=== PATIENT | female | born 1990 | race Two or more races ===

== ENCOUNTER 2020-03-10 18:13 | Emergency (ER) | payer OTHER, MEDICAID, SELFPAY ==
--- NOTE | 2020-03-10 20:10 | PC.NURSE ---
PT CALLED AT 1999. PT NOT IN [facility].
--- NOTE | 2020-03-10 21:10 | PC.NURSE ---
CALLED PATIENT NO RESPONSE
== END 2020-03-10 21:00 | disposition left against medical advice (07) ==
LOC: HO.ED 21:14
PROVIDERS: Emergency Provider Internal Medicine; PCP Family Medicine
DX: Z04.1 Encounter for examination and observation following transport accident (principal)
CPT/HCPCS: 99281

== ENCOUNTER 2020-05-13 15:33 | Emergency (ER) | payer MEDICAID, SELFPAY ==
[2020-05-13 16:14] VITALS: BP 120/71; PULSE 87; RESP 20; TEMP 37.1; O2SAT 100; BMI 36.6
[2020-05-13 20:38] VITALS: BP 109/63; PULSE 85; RESP 18; TEMP 36.8; O2SAT 98
[2020-05-13 20:42] LABS: Basophils Percent Auto 0.3 % (0-2); Eosinophils Absolute Auto 0.2 X10*3/uL (0.0-0.4); Eosinophils Percent Auto 1.4 % (0-4); Hematocrit 36.9 % (37-47); Hemoglobin 11.9 g/dl (12.0-16.0); Imm Gran Abs Auto 0.02 X10*3/uL (0.00-0.03); Imm Gran Pct Auto 0.2 % (0.0-0.4); Lymphocytes Absolute Auto 3.8 X10*3/uL (1.2-4.9); Lymphocytes Percent Auto 35.7 % (20-40); MANUAL DIFF FLAG NO; Mean Corpuscular HGB Conc 32.2 g/dl (31.0-35.0); Mean Corpuscular Hemoglobin 27.3 pg (27.0-33.0); Mean Corpuscular Volume 84.6 fL (80-98); Mean Platelet Volume 10.6 fL (9.4-12.3); Monocytes Absolute Auto 0.7 X10*3/uL (0.1-1.2); Monocytes Percent Auto 6.3 % (2-11); Neutrophils Absolute Auto 5.9 X10*3/uL (2.0-8.3); Neutrophils Percent Auto 56.1 % (45-73); Platelet Count 251 X10*3/uL (160-400); Red Blood Count 4.36 X10*6/uL (4.20-5.50); Red Cell Distribution Width 13.3 % (11.0-16.0); White Blood Count 10.6 X10*3/uL (4.8-10.8)
[2020-05-13 20:46] LABS: UPreg QC Valid YES; Urine Pregnancy NEGATIVE (NEGATIVE)
[2020-05-13 21:08] LABS: Anion Gap 12 (12-20); Blood Urea Nitrogen 15 mg/dL (9-16); Calcium 9.1 mg/dL (8.4-10.2); Carbon Dioxide 25 mmol/L (22-29); Chloride 104 mmol/L (96-108); Creatinine Clr Calc Pharmacy 111.4; Estimated Glomerular Filt Rate > 60; Glucose Random 87 mg/dL (60-115); Potassium 3.7 mmol/l (3.3-5.1); Sodium 137 mmol/L (135-145)
[2020-05-13 21:25] VITALS: BP 110/73; PULSE 83; RESP 16; O2SAT 99
--- NOTE | 2020-05-13 21:44 | ED_ITS ---
HPI - Headache General Chief Complaint: Headache Stated Complaint: migraine Time Seen by Provider: 05/13/20 21:30 Source: patient Mode of arrival: ambulatory History of Present Illness HPI Narrative: This is a 29-year-old female with past medical history of headaches, asthma, and removal of 4 wisdom teeth approximately 2 weeks ago who presents with right-sided headache for 3 weeks without photosensitivity or visual changes, denies any hearing/speech changes and as well denies any unilateral numbness/weakness/tingling. However, she does states she has had some mild nausea without fevers, chills, neck pain. Related Data Allergies Allergy/AdvReac Type Severity Reaction Status Date / Time No Known Allergies Allergy Unverified 01/31/20 16:40 Review of Systems Review of Systems: Pertinent positives and negatives as stated in HPI 10 point review of systems otherwise negative. PMFSH Past Medical History Source: nursing notes reviewed Medical History Asthma Hypertension Kidney stones Social History Social History Smoking Status: Current every day smoker Use of substances other than those prescribed or required for medical reasons: No Advance Directives: No Advance Directives Information Provided: No Physical Exam Vital Signs: Vital Signs: Last Vital Signs Temp 98.0 F 05/13/20 22:52 Pulse 70 05/13/20 22:52 Resp 20 05/13/20 22:52 BP 107/58 L 05/13/20 22:52 Pulse Ox 95 05/13/20 22:52 Body Mass Index 36.6 VITAL SIGNS: Reviewed. GENERAL: Well developed, well nourished, in no acute distress. HEAD: Normocephalic/atraumatic, EYES: PERRLA, EOMI intact without pain, no nystagmus/pallor/icterus noted EARS: Ext canals without abnormality, TMs non-bulging and non-erythematous NOSE: Nares patent bilateral OROPHARYNX: no oral lesions noted, posterior pharynx clear and non-erythematous without noted tonsillar enlargement/erythema/exudates NECK: Supple, no adenopathy LUNGS: Normal breath sounds. No adventitious sounds or accessory muscle use. SpO2<99> CARDIOVASCULAR: Regular rate and rhythm without noted murmurs, no JVD or lower extremity edema. ABDOMEN: Soft, non-tender, non-distended with bowel sounds. No rigidity. No guarding. No palpable masses or hernias noted NEUROLOGIC: Alert and oriented x 4. Strength and sensation to light touch were grossly intact x 4, no pronator drift, no facial asymmetry, cranial nerves 2-12 are grossly intact.. Course Course Course Narrative: This is a 29-year-old female with history and clinical presentation consistent with likely tension versus associated with recent dental procedure although the latter is less likely. Patient will be provided with a combination of analgesics and reassessed. Doubt intracranial tumor, infarct, bleed, or infection. Patient has had good resolution of her symptoms and review of all lab work is negative to include a negative urine test. Were discussed with the patient at bedside and she was encouraged to follow up with her primary care provider for further evaluation. MDM - Headache Lab Data Result diagrams: 05/13/20 20:36 05/13/20 20:36 Labs: Lab Results 05/13/20 05/13/20 05/13/20 Range/Units 20:36 20:36 20:36 WBC 10.6 (4.8-10.8) X10*3/uL RBC 4.36 (4.20-5.50) X10*6/uL Hgb 11.9 L (12.0-16.0) g/dl Hct 36.9 L (37-47) % MCV 84.6 (80-98) fL MCH 27.3 (27.0-33.0) pg MCHC 32.2 (31.0-35.0) g/dl RDW 13.3 (11.0-16.0) % Plt Count 251 (160-400) X10*3/uL MPV 10.6 (9.4-12.3) fL Immature Gran % (Auto) 0.2 (0.0-0.4) % Neut % (Auto) 56.1 (45-73) % Lymph % (Auto) 35.7 (20-40) % [place] % (Auto) 6.3 (2-11) % Eos % (Auto) 1.4 (0-4) % Baso % (Auto) 0.3 (0-2) % Lymph # (Auto) 3.8 (1.2-4.9) X10*3/uL [place] # (Auto) 0.7 (0.1-1.2) X10*3/uL Eos # (Auto) 0.2 (0.0-0.4) X10*3/uL Baso # (Auto) 0.0 (0.0-0.2) X10*3/uL Abs Immat Gran (auto) 0.02 (0.00-0.03) X10*3/uL Absolute Neuts (auto) 5.9 (2.0-8.3) X10*3/uL Absolute Nucleated RBC 0.000 (0.0-0.012) X10*3/uL Nucleated RBC % (auto) 0.0 (0.0-0.2) /100WBC Sodium 137 (135-145) mmol/L Potassium 3.7 (3.3-5.1) mmol/l Chloride 104 (96-108) mmol/L Carbon Dioxide 25 (22-29) mmol/L Anion Gap 12 (12-20) BUN 15 (9-16) mg/dL Creatinine 0.78 (0.5-1.4) mg/dL Estim Creat Clear Calc 111.4 Estimated GFR > 60 Random Glucose 87 (60-115) mg/dL Calcium 9.1 (8.4-10.2) mg/dL Urine Test NEGATIVE (NEGATIVE) Discharge Plan Discharge Clinical Impression: Headache Qualifiers: Headache type: unspecified Headache chronicity pattern: chronic headache Intractability: not intractable Qualified Code(s): R51.9 - Headache, unspecified Patient Disposition: Home, Self-Care Instructions: General Headache (ED) Additional Instructions: 1. Tylenol 1000 mg, orally, every 6 hours as needed for pain control. Do not exceed 4000 mg within 24 hours. 2. Ibuprofen 400 mg, orally with milk or food, every 6 hours as needed for pain control. You may take this medication with Tylenol as it will increase the affect. 3. Increase your fluid hydration especially with water. The patient and/or family acknowledge understanding of results (as applicable), diagnosis, treatment plan, need for follow up, and symptoms that should prompt a return to the emergency room. Referrals: Reagan Garcia MD [Physician] - 2 days (Please evaluate this patient for outpatient management of headaches.)
[2020-05-13] MEDS: Acetaminophen 325 MG TABLET 975 MG PO (21:49)
[2020-05-13] MEDS: diphenhydrAMINE HCL 50 MG/ML VIAL 25 MG IM (21:49)
[2020-05-13] MEDS: Ketorolac Tromethamine 15 MG/ML VIAL IM (21:50)
[2020-05-13] MEDS: Metoclopramide HCl 10 MG/2 ML VIAL IM (21:50)
[2020-05-13 22:52] VITALS: BP 107/58; PULSE 70; RESP 20; TEMP 36.7; O2SAT 95
== END 2020-05-13 23:52 | disposition home or self-care (01) ==
PROVIDERS: Emergency Provider Student in an Organized Health Care Education/Training Program
DX: R51.9 Headache, unspecified (principal); J45.909 Unspecified asthma, uncomplicated; F17.200 Nicotine dependence, unspecified, uncomplicated; Z71.6 Tobacco abuse counseling
CPT/HCPCS: 36415; 80048; 81025; 85025; 96372; 99284; J1200; J1885; J2765

== ENCOUNTER 2020-08-15 23:27 | Emergency (ER) | payer MEDICAID, SELFPAY ==
--- NOTE | ~2020-08-15 | CT_ITS ---
EXAMINATION: CT ABDOMEN AND PELVIS WITH CONTRAST CLINICAL INFORMATION: Right lower quadrant pain. Left flank pain. COMPARISON: 02/07/2020. TECHNIQUE: Contiguous axial thin section helical images of the abdomen and pelvis were performed following the administration of 85 mL of intravenous Omnipaque 3-50. The data set was reformatted in the coronal and sagittal planes and reviewed on an independent workstation. DLP: 791 mGy-cm. FINDINGS: There is mild dependent bibasilar atelectasis. The visualized lung bases are otherwise clear. The visualized portions of the heart are unremarkable. The liver is of normal size and attenuation without focal lesions nor intrahepatic biliary ductal dilation. A normal gallbladder is identified. There is no wall thickening or discernible pericholecystic fluid. The spleen, pancreas, adrenal glands are unremarkable. Both kidneys are of normal size and attenuation without hydronephrosis or nephrolithiasis. Following the administration of IV contrast, prompt symmetric nephrograms are displayed. There is no abdominal free fluid. There is neither mesenteric nor retroperitoneal lymphadenopathy. Normal unopacified loops of small and large bowel are identified. There is a small amount of likely physiologic pelvic free fluid. The urinary bladder is unremarkable. There is neither pelvic nor inguinal lymphadenopathy. Bone windows: Neither sclerotic nor lytic bone lesions are identified. CT/CT abdomen pelvis w con IMPRESSION: No acute abdominal or pelvic inflammatory or infectious processes. Automated exposure control (Care Dose) Adjustment of the mA and/or kv according to patient size (this includes techniques or standardized protocols for targeted exams where dose is matched to indication / reason for exam; i.e. extremities or head).
[2020-08-15 23:29] VITALS: BP 127/66; PULSE 93; RESP 18; TEMP 36.7; O2SAT 98; BMI 38.0
--- NOTE | 2020-08-16 01:15 | ED_ITS ---
HPI - Abdominal Pain General Chief Complaint: Abdominal Pain Stated Complaint: Abd pain Time Seen by Provider: 08/16/20 00:32 Source: patient Mode of arrival: ambulatory Limitations: no limitations History of Present Illness HPI narrative: Patient comes emergency room complaining of left-sided flank pain for 3 days. Patient denies dysuria, no hematuria, no fever chills. Patient denies any history of trauma. Patient states she has had kidney stones in the past, needed surgery. Patient also complaining of mild right lower quadrant pain which is intermittent , was hurting earlier today, but not this time. Related Data Allergies Allergy/AdvReac Type Severity Reaction Status Date / Time No Known Allergies Allergy Unverified 01/31/20 16:40 Review of Systems Review of Systems Constitutional : No Weight loss, No Fever, No Chills, No Night Sweats, No Fatigue, No Malaise ENT/Mouth : No Hearing loss, No Ear Pain, No Nasal Congestion, No Sinus Pain, No Hoarseness, No sore throat, No Rhinorrhea, No Swallowing Difficulty Eyes: No Eye Pain, No Swelling, No Redness, No Foreign Body, No Discharge, No Vision Changes Cardiovascular : No Chest Pain, No SOB, No Dyspnea on Exertion, No Orthopnea, No Edema, No Palpitations Respiratory : No Cough, No Sputum, No Wheezing, No Smoke Exposure, No Dyspnea Gastrointestinal : Complaining of Nausea, No Vomiting, No Diarrhea, No Consti pation, complaining of intermittent right lower quadrant pain but not at this time, complaining of left CVA tenderness, No Hematochezia, No Melena Genitourinary : no irregular bleeding, No Dysuria, No Urinary Frequency, No Hematuria, No Urinary Incontinence, No Urgency, No Flank Pain, No Urinary Flow Changes, No Hesitancy Musculoskeletal : No joint pain, No Myalgias, No Joint Swelling Skin : No Skin Lesions, No rash Neuro : No Weakness, No Numbness, No Paresthesias, No Loss of Consciousness, No Dizziness, No Headache Psych : No Anxiety/Panic, No Depression, No SI/HI/AH/VH, No Social Issues, Heme/Lymph: No Bruising, No Bleeding,No Lymphadenopathy Endocrine : No Polyuria, No Polydipsia, No Temperature Intolerance Physical Exam Vital Signs: Vital Signs: Last Vital Signs Temp 98.1 F 08/15/20 23:29 Pulse 93 08/15/20 23:29 Resp 18 08/15/20 23:29 BP 127/66 08/15/20 23:29 Pulse Ox 98 08/15/20 23:29 Body Mass Index 38.0 Appearance: Alert. Oriented X3. No acute distress. Eyes: Pupils equal, round and reactive to light. ENT: Pharynx normal. Neck: Normal inspection. Neck supple. No lymph nodes noted. No crepitus CVS: Normal heart rate and rhythm. Pulses normal. Normal S1 and S2 Respiratory: No respiratory distress. Breath sounds normal. No Wheezing. No rales Abdomen: Soft and nontender in the abdomen including right lower quadrant. No rigidity. No distention. Positive CVA tenderness on the left side Skin: Skin warm and dry. Normal skin color. Normal skin turgor. Extremities: No lower extremity edema. No lower extremity edema. No Lacerations. No Rash Neuro: Oriented X 3. No motor deficit. No sensory deficit. Moving all extermities. No slurred speech. Course Course Course Narrative: Patient has no white blood cell count, sepsis is not suspected. Urinalysis clean, urine negative. CT scan is pending. Patient's pain likely musculoskeletal. Patient received 1 dose of IV Toradol. Complain of right lower quadrant pain on physical exam nonspecific. Please follow-up with the CT scan. sign out given to Dr. Weller [facility] - Abdominal Pain Lab Data Result diagrams: 08/16/20 01:28 08/16/20 01:28 Labs: Lab Results 08/16/20 08/16/20 08/16/20 Range/Units 01:17 01:17 01:28 WBC 10.2 (4.8-10.8) X10*3/uL RBC 4.29 (4.20-5.50) X10*6/uL Hgb 11.6 L (12.0-16.0) g/dl Hct 36.7 L (37-47) % MCV 85.5 (80-98) fL MCH 27.0 (27.0-33.0) pg MCHC 31.6 (31.0-35.0) g/dl RDW 13.5 (11.0-16.0) % Plt Count 200 (160-400) X10*3/uL MPV 11.4 (9.4-12.3) fL Immature Gran % (Auto) 0.2 (0.0-0.4) % Neut % (Auto) 60.0 (45-73) % Lymph % (Auto) 32.1 (20-40) % [place] % (Auto) 5.6 (2-11) % Eos % (Auto) 1.8 (0-4) % Baso % (Auto) 0.3 (0-2) % Lymph # (Auto) 3.3 (1.2-4.9) X10*3/uL [place] # (Auto) 0.6 (0.1-1.2) X10*3/uL Eos # (Auto) 0.2 (0.0-0.4) X10*3/uL Baso # (Auto) 0.0 (0.0-0.2) X10*3/uL Abs Immat Gran (auto) 0.02 (0.00-0.03) X10*3/uL Absolute Neuts (auto) 6.2 (2.0-8.3) X10*3/uL Absolute Nucleated RBC 0.000 (0.0-0.012) X10*3/uL Nucleated RBC % (auto) 0.0 (0.0-0.2) /100WBC Urine Color YELLOW Urine Appearance CLEAR Urine pH 6.5 (5.0-8.0) Ur Specific [place] 1.020 (1.005-1.025) Urine Protein NEG (NEG-TRACE) MG/DL Urine Glucose (UA) NEG (NEG) MG/DL Urine Ketones NEG (NEG) MG/DL Urine Blood NEG (NEG) Urine Nitrite NEG (NEG) Ur Leukocyte Esterase NEG (NEG) Urine Test NEGATIVE (NEGATIVE) [facility] Past Medical History Medical History Asthma Hypertension Kidney stones Social History Social History Alcohol intake: current Alcohol intake frequency: does not drink Smoking Status: Never smoker Advance Directives: No Advance Directives Information Provided: No
[2020-08-16 01:26] LABS: Glucose Urine UA NEG (NEG); Leukocyte Esterase Urine NEG (NEG); Nitrite Urine NEG (NEG); PH 6.5 (5.0-8.0); Urine Blood NEG (NEG); Urine Ketones NEG (NEG); Urine Protein NEG (NEG-TRACE)
[2020-08-16 01:28] LABS: Appearance Urine CLEAR; Color Urine YELLOW; UACC Culture Trigger NO; UPreg QC Valid YES; Urine Pregnancy NEGATIVE (NEGATIVE)
[2020-08-16 01:35] LABS: Basophils Percent Auto 0.3 % (0-2); Eosinophils Absolute Auto 0.2 X10*3/uL (0.0-0.4); Eosinophils Percent Auto 1.8 % (0-4); Hematocrit 36.7 % (37-47); Hemoglobin 11.6 g/dl (12.0-16.0); Imm Gran Abs Auto 0.02 X10*3/uL (0.00-0.03); Imm Gran Pct Auto 0.2 % (0.0-0.4); Lymphocytes Absolute Auto 3.3 X10*3/uL (1.2-4.9); Lymphocytes Percent Auto 32.1 % (20-40); Mean Corpuscular HGB Conc 31.6 g/dl (31.0-35.0); Mean Corpuscular Volume 85.5 fL (80-98); Mean Platelet Volume 11.4 fL (9.4-12.3); Monocytes Absolute Auto 0.6 X10*3/uL (0.1-1.2); Monocytes Percent Auto 5.6 % (2-11); Neutrophils Absolute Auto 6.2 X10*3/uL (2.0-8.3); Platelet Count 200 X10*3/uL (160-400); Red Blood Count 4.29 X10*6/uL (4.20-5.50); Red Cell Distribution Width 13.5 % (11.0-16.0); White Blood Count 10.2 X10*3/uL (4.8-10.8)
[2020-08-16 01:36] LABS: MANUAL DIFF FLAG NO
[2020-08-16] MEDS: Ketorolac Tromethamine 30 MG/ML VIAL IVPUSH (01:37)
[2020-08-16 02:00] LABS: Lactic Acid 0.9 mmol/L (0.5-2.0)
[2020-08-16 02:41] LABS: Alanine Aminotransferase 18 U/L (0-31); Alkaline Phosphatase 61 U/L (39-117); Anion Gap 12 (12-20); Aspartate Amino Transferase 15 U/L (5-31); Bilirubin Direct < 0.2 mg/dL (0.0-0.5); Bilirubin Total < 0.2 mg/dL (0.0-1.0); Blood Urea Nitrogen 14 mg/dL (9-16); Calcium 8.9 mg/dL (8.4-10.2); Carbon Dioxide 26 mmol/L (22-29); Chloride 103 mmol/L (96-108); Creatinine Clr Calc Pharmacy 127.6; Estimated Glomerular Filt Rate > 60; Glucose Random 122 mg/dL (60-115); Potassium 3.9 mmol/L (3.3-5.1); Sodium 137 mmol/L (135-145); Total Protein 6.7 g/dL (6.5-8.0)
[2020-08-16 04:00] VITALS: RESP 18
[2020-08-16 06:00] VITALS: BP 100/68; PULSE 59; RESP 18; O2SAT 97
== END 2020-08-16 06:17 | disposition home or self-care (01) ==
PROVIDERS: Emergency Provider Emergency Medicine
DX: R10.9 Unspecified abdominal pain (principal); I10 Essential (primary) hypertension; Z87.442 Personal history of urinary calculi
CPT/HCPCS: 36415; 74177; 80048; 80076; 81003; 81025; 83605; 85025; 87040; 96374; 99284; 99285; J1885; Q9967

== ENCOUNTER 2020-08-19 23:52 | Emergency (ER) | payer MEDICAID, SELFPAY ==
--- NOTE | ~2020-08-19 | CT_ITS ---
EXAMINATION: CT ABDOMEN AND PELVIS WITH CONTRAST CLINICAL INFORMATION: Right lower quadrant pain COMPARISON: 08/16/2020 TECHNIQUE: Multidetector volumetric images were obtained from the superior aspect of the liver through the pubic symphysis following administration 85 mL of Omnipaque 350 intravenous contrast. Sagittal and coronal reformatted images were obtained on the technologist's workstation. Oral contrast: No This CT examination was performed using dose optimization techniques as appropriate, variously including the following: *Automated exposure control *Adjustment of mA and/or kV according to patient size (this includes techniques or standardized protocols for targeted exams where dose is matched to indication/reason for exam; i.e. extremities or head) *Use of iterative reconstruction technique DLP: 766 mGy-cm FINDINGS: LUNG BASES: The visualized lung bases are unremarkable. LIVER, GALLBLADDER, AND BILIARY TREE: The liver is normal in size, shape, and attenuation. No focal hepatic lesion or biliary ductal dilatation is present. Gallbladder physiologically contracted. PANCREAS: Unremarkable. SPLEEN: Unremarkable. ADRENAL GLANDS: Unremarkable. KIDNEYS AND URETERS: The kidneys are normal in size and shape. Numerous punctate and amorphous calcifications present throughout the bilateral renal medulla the more discrete calcifications measure up to 2 mm. No hydronephrosis, hydroureter, or calculi seen. No perinephric stranding. BLADDER: Unremarkable. GASTROINTESTINAL TRACT: The small and large bowel are unremarkable. The appendix is unremarkable. ABDOMINAL WALL: Small fat-containing umbilical hernia. LYMPH NODES: Normal. VASCULAR: Unremarkable. PELVIC VISCERA: Unremarkable. OSSEOUS STRUCTURES: Unremarkable. CT/CT abdomen pelvis w con IMPRESSION: No acute findings within the abdomen or pelvis. The appendix is normal. Bilateral medullary nephrocalcinosis and numerous bilateral punctate intrarenal calculi.
[2020-08-20 00:56] VITALS: BP 112/58; PULSE 93; RESP 16; TEMP 36.9; O2SAT 99; BMI 38.5
[2020-08-20 01:05] LABS: MANUAL DIFF FLAG NO
[2020-08-20 01:20] LABS: Basophils Percent Auto 0.2 % (0-2); Eosinophils Absolute Auto 0.2 X10*3/uL (0.0-0.4); Eosinophils Percent Auto 1.9 % (0-4); Hematocrit 37.1 % (37-47); Hemoglobin 11.8 g/dl (12.0-16.0); Imm Gran Abs Auto 0.03 X10*3/uL (0.00-0.03); Imm Gran Pct Auto 0.3 % (0.0-0.4); Lymphocytes Percent Auto 26.2 % (20-40); Mean Corpuscular HGB Conc 31.8 g/dl (31.0-35.0); Mean Corpuscular Hemoglobin 26.6 pg (27.0-33.0); Mean Corpuscular Volume 83.7 fL (80-98); Monocytes Absolute Auto 0.7 X10*3/uL (0.1-1.2); Neutrophils Absolute Auto 7.4 X10*3/uL (2.0-8.3); Neutrophils Percent Auto 65.4 % (45-73); Platelet Count 206 X10*3/uL (160-400); Red Blood Count 4.43 X10*6/uL (4.20-5.50); Red Cell Distribution Width 13.6 % (11.0-16.0); White Blood Count 11.3 X10*3/uL (4.8-10.8)
[2020-08-20 01:33] LABS: Alanine Aminotransferase 24 U/L (0-31); Albumin Level 4.4 g/dL (3.5-5.0); Alkaline Phosphatase 64 U/L (39-117); Anion Gap 13 (12-20); Aspartate Amino Transferase 19 U/L (5-31); Bilirubin Total < 0.2 mg/dL (0.0-1.0); Blood Urea Nitrogen 15 mg/dL (9-16); Calcium 9.1 mg/dL (8.4-10.2); Carbon Dioxide 23 mmol/L (22-29); Chloride 104 mmol/L (96-108); Creatinine Clr Calc Pharmacy 112.1; Estimated Glomerular Filt Rate > 60; Glucose Random 104 mg/dL (60-115); Potassium 3.8 mmol/L (3.3-5.1); Sodium 136 mmol/L (135-145); Total Protein 7.4 g/dL (6.5-8.0)
--- NOTE | 2020-08-20 02:39 | ED_ITS ---
HPI - Abdominal Pain General Chief Complaint: Abdominal Pain Stated Complaint: RIGHT SIDE ABD PAIN/SWELLING Time Seen by Provider: 08/20/20 02:35 History of Present Illness HPI narrative: Patient is 30 years old presents today with having abdominal pain. The pain is dull in nature is over the right lower quadrant. It has been ongoing for 2 days. Associated with nausea. Never had kidney stones in the past. No significant past medical history. No cough no congestion or upper respiratory symptoms. Patient does not think she is . Did not miss her menstruation. No pain when she urinates. No vaginal discharge. No change of bowel movement. Positive nausea. No cough no congestion no change in smell. Patient from home. Rates the pain is 8/10. Related Data Previous Rx's Medication Instructions Recorded cyclobenzaprine 10 mg PO TID PRN #14 tab 08/16/20 Allergies Allergy/AdvReac Type Severity Reaction Status Date / Time No Known Allergies Allergy Unverified 01/31/20 16:40 Review of Systems Review of Systems Constitutional: No Weight loss, No Fever, No Chills, No Night Sweats, No Fatigue, No Malaise ENT/Mouth: No Hearing loss, No Ear Pain, No Nasal Congestion, No Sinus Pain, No Hoarseness, No sore throat, No Rhinorrhea, No Swallowing Difficulty Eyes: No Eye Pain, No Swelling, No Redness, No Foreign Body, No Discharge, No Vision Changes Cardiovascular: No Chest Pain, No SOB, No Dyspnea on Exertion, No Orthopnea, No Edema, No Palpitations Respiratory: No Cough, No Sputum, No Wheezing, No Smoke Exposure, No Dyspnea Gastrointestinal: Positive abdominal pain, positive nausea Genitourinary: no irregular bleeding, No Dysuria, No Urinary Frequency, No Hematuria, No Urinary Incontinence, No Urgency, No Flank Pain, No Urinary Flow Changes, No Hesitancy Musculoskeletal: No joint pain, No Myalgias, No Joint Swelling Skin: No Skin Lesions, No rash Neuro: No Weakness, No Numbness, No Paresthesias, No Loss of Consciousness, No Dizziness, No Headache Psych: No Anxiety/Panic, No Depression, No SI/HI/AH/VH, No Social Issues, Heme/Lymph: No Bruising, No Bleeding,No Lymphadenopathy Endocrine: No Polyuria, No Polydipsia, No Temperature Intolerance Yes all other systems are reviewed and are negative Physical Exam Vital Signs: Vital Signs: Last Vital Signs Temp 98.4 F 08/20/20 03:23 Pulse 93 08/20/20 03:23 Resp 16 08/20/20 03:23 BP 139/78 08/20/20 03:23 Pulse Ox 99 08/20/20 03:23 Body Mass Index 38.5 Appearance: Alert. Oriented X3. No acute distress. Eyes: Pupils equal, round and reactive to light. ENT: Pharynx normal. Neck: Normal inspection. Neck supple. No lymph nodes noted. No crepitus CVS: Normal heart rate and rhythm. Pulses normal. Normal S1 and S2 Respiratory: No respiratory distress. Breath sounds normal. No Wheezing. No rales Abdomen: Soft and nontender. No rigidity. No distention. good BS x4 Skin: Skin warm and dry. Normal skin color. Normal skin turgor. Extremities: No lower extremity edema. Neurovascular intact to all extremities. No Lacerations. No Rash Neuro: Oriented X 3. No motor deficit. No sensory deficit. Moving all extermities. No slurred speech MDM - Abdominal Pain MDM Narrative Medical decision making narrative: CT of the abdomen was negative for any acute evidence of abscess, perforation. No vomiting in the emergency department. No evidence of kidney stone no evidence of appendicitis on CT. Patient's urine is negative for infection. test negative unlikely be ectopic. We will discharge patient in stable condition Differential Diagnosis Differential diagnosis: Likely abdominal pain Lab Data Result diagrams: 08/20/20 01:00 08/20/20 01:00 Labs: Lab Results 08/20/20 08/20/20 08/20/20 Range/Units 01:00 01:00 01:00 WBC 11.3 H (4.8-10.8) X10*3/uL RBC 4.43 (4.20-5.50) X10*6/uL Hgb 11.8 L (12.0-16.0) g/dl Hct 37.1 (37-47) % MCV 83.7 (80-98) fL MCH 26.6 L (27.0-33.0) pg MCHC 31.8 (31.0-35.0) g/dl RDW 13.6 (11.0-16.0) % Plt Count 206 (160-400) X10*3/uL MPV 11.0 (9.4-12.3) fL Immature Gran % (Auto) 0.3 (0.0-0.4) % Neut % (Auto) 65.4 (45-73) % Lymph % (Auto) 26.2 (20-40) % [place] % (Auto) 6.0 (2-11) % Eos % (Auto) 1.9 (0-4) % Baso % (Auto) 0.2 (0-2) % Lymph # (Auto) 3.0 (1.2-4.9) X10*3/uL [place] # (Auto) 0.7 (0.1-1.2) X10*3/uL Eos # (Auto) 0.2 (0.0-0.4) X10*3/uL Baso # (Auto) 0.0 (0.0-0.2) X10*3/uL Abs Immat Gran (auto) 0.03 (0.00-0.03) X10*3/uL Absolute Neuts (auto) 7.4 (2.0-8.3) X10*3/uL Absolute Nucleated RBC 0.000 (0.0-0.012) X10*3/uL Nucleated RBC % (auto) 0.0 (0.0-0.2) /100WBC Hold Blue Top SEE NOTE Sodium 136 (135-145) mmol/L Potassium 3.8 (3.3-5.1) mmol/L Chloride 104 (96-108) mmol/L Carbon Dioxide 23 (22-29) mmol/L Anion Gap 13 (12-20) BUN 15 (9-16) mg/dL Creatinine 0.79 (0.5-1.4) mg/dL Estim Creat Clear Calc 112.1 Estimated GFR > 60 Random Glucose 104 (60-115) mg/dL Calcium 9.1 (8.4-10.2) mg/dL Total Bilirubin < 0.2 (0.0-1.0) mg/dL AST 19 (5-31) U/L ALT 24 (0-31) U/L Alkaline Phosphatase 64 (39-117) U/L Total Protein 7.4 (6.5-8.0) g/dL Albumin 4.4 (3.5-5.0) g/dL Urine Color Urine Appearance Urine pH (5.0-8.0) Ur Specific [place] (1.005-1.025) Urine Protein (NEG-TRACE) MG/DL Urine Glucose (UA) (NEG) MG/DL Urine Ketones (NEG) MG/DL Urine Blood (NEG) Urine Nitrite (NEG) Ur Leukocyte Esterase (NEG) Urine RBC (0) /HPF Urine WBC (0-4) /HPF Ur Squamous Epith Cells /LPF Amorphous Sediment /LPF Urine Bacteria /LPF Urine Test (NEGATIVE) 08/20/20 08/20/20 Range/Units 03:03 03:03 WBC (4.8-10.8) X10*3/uL RBC (4.20-5.50) X10*6/uL Hgb (12.0-16.0) g/dl Hct (37-47) % MCV (80-98) fL MCH (27.0-33.0) pg MCHC (31.0-35.0) g/dl RDW (11.0-16.0) % Plt Count (160-400) X10*3/uL MPV (9.4-12.3) fL Immature Gran % (Auto) (0.0-0.4) % Neut % (Auto) (45-73) % Lymph % (Auto) (20-40) % [place] % (Auto) (2-11) % Eos % (Auto) (0-4) % Baso % (Auto) (0-2) % Lymph # (Auto) (1.2-4.9) X10*3/uL [place] # (Auto) (0.1-1.2) X10*3/uL Eos # (Auto) (0.0-0.4) X10*3/uL Baso # (Auto) (0.0-0.2) X10*3/uL Abs Immat Gran (auto) (0.00-0.03) X10*3/uL Absolute Neuts (auto) (2.0-8.3) X10*3/uL Absolute Nucleated RBC (0.0-0.012) X10*3/uL Nucleated RBC % (auto) (0.0-0.2) /100WBC Hold Blue Top Sodium (135-145) mmol/L Potassium (3.3-5.1) mmol/L Chloride (96-108) mmol/L Carbon Dioxide (22-29) mmol/L Anion Gap (12-20) BUN (9-16) mg/dL Creatinine (0.5-1.4) mg/dL Estim Creat Clear Calc Estimated GFR Random Glucose (60-115) mg/dL Calcium (8.4-10.2) mg/dL Total Bilirubin (0.0-1.0) mg/dL AST (5-31) U/L ALT (0-31) U/L Alkaline Phosphatase (39-117) U/L Total Protein (6.5-8.0) g/dL Albumin (3.5-5.0) g/dL Urine Color YELLOW Urine Appearance HAZY Urine pH 6.5 (5.0-8.0) Ur Specific [place] 1.025 (1.005-1.025) Urine Protein NEG (NEG-TRACE) MG/DL Urine Glucose (UA) NEG (NEG) MG/DL Urine Ketones NEG (NEG) MG/DL Urine Blood NEG (NEG) Urine Nitrite NEG (NEG) Ur Leukocyte Esterase NEG (NEG) Urine RBC 0-2 (0) /HPF Urine WBC 0-2 (0-4) /HPF Ur Squamous Epith Cells 1+ /LPF Amorphous Sediment 2+ /LPF Urine Bacteria 1+ /LPF Urine Test NEGATIVE (NEGATIVE) Discharge Plan Discharge Clinical Impression: Abdominal pain Patient Disposition: Home, Self-Care Instructions: Abdominal Pain (ED) Prescriptions: No Action cyclobenzaprine 10 mg tablet 10 mg PO TID PRN (Reason: muscle spasm) Qty: 14 RF: 0 Referrals: Maureen Horne MD [Primary Care Provider] - 2 days [facility] Past Medical History Medical History Asthma Hypertension Kidney stones Social History Social History Alcohol intake: current Alcohol intake frequency: does not drink Smoking Status: Never smoker Use of substances other than those prescribed or required for medical reasons: No Advance Directives: No Advance Directives Information Provided: No
[2020-08-20] MEDS: 0.9 % Sodium Chloride 1,000 ML 999 ML IV (02:59)
[2020-08-20] MEDS: Ketorolac Tromethamine 30 MG/ML VIAL IVPUSH (02:59)
[2020-08-20] MEDS: ondansetron HCL 4 MG/2 ML VIAL IVPUSH (03:00)
[2020-08-20 03:15] LABS: Glucose Urine UA NEG (NEG); Leukocyte Esterase Urine NEG (NEG); Nitrite Urine NEG (NEG); PH 6.5 (5.0-8.0); Specific Gravity - Urine 1.025 (1.005-1.025); Urine Blood NEG (NEG); Urine Ketones NEG (NEG); Urine Protein NEG (NEG-TRACE)
[2020-08-20 03:19] LABS: Appearance Urine HAZY; Color Urine YELLOW
[2020-08-20 03:23] VITALS: BP 139/78; PULSE 93; RESP 16; TEMP 36.9; O2SAT 99
[2020-08-20 03:28] LABS: Amorphous Sediment Urine 2+ /LPF; Bacteria Urine 1+ /LPF; RBC Urine 0-2 /HPF (0); Squamous Epithelial Cell Urine 1+ /LPF; WBC Urine 0-2 /HPF (0-4)
[2020-08-20 03:32] LABS: UPreg QC Valid YES; Urine Pregnancy NEGATIVE (NEGATIVE)
[2020-08-20] MEDS: iohexoL 350 MG/ML 100 ML INFUS..BTL IV (03:54)
[2020-08-20 04:00] VITALS: BP 107/67; PULSE 66; RESP 14; O2SAT 97
== END 2020-08-20 05:40 | disposition home or self-care (01) ==
PROVIDERS: Emergency Provider Emergency Medicine Emergency Medical Services; PCP Family Medicine
DX: R10.31 Right lower quadrant pain (principal); I10 Essential (primary) hypertension; Z87.442 Personal history of urinary calculi
CPT/HCPCS: 36415; 74177; 80053; 81001; 81025; 85025; 96361; 96374; 96375; 99284; J1885; J2405; Q9967

== ENCOUNTER 2020-10-11 17:19 | Emergency (ER) | payer MEDICAID, SELFPAY | END 2020-10-11 18:28 | disposition left against medical advice (07) | PROVIDERS: Emergency Provider Emergency Medicine | DX: R10.9 Unspecified abdominal pain (principal) | CPT/HCPCS: 99281 ==

== ENCOUNTER 2020-11-18 20:24 | Emergency (ER) | payer OTHER, MEDICAID, SELFPAY ==
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
[2020-11-18 20:33] VITALS: BP 141/85; PULSE 93; RESP 18; TEMP 37; O2SAT 98; BMI 38.4
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
[2020-11-18 22:00] VITALS: BP 133/68; PULSE 77; RESP 16; O2SAT 98
== END 2020-11-18 23:14 | disposition home or self-care (01) ==
PROVIDERS: Emergency Provider Emergency Medicine Emergency Medical Services
DX: S13.4XXA Sprain of ligaments of cervical spine, initial encounter (principal); S16.1XXA Strain of muscle, fascia and tendon at neck level, initial encounter; S39.012A Strain of muscle, fascia and tendon of lower back, initial encounter; I10 Essential (primary) hypertension; V89.2XXA Person injured in unspecified motor-vehicle accident, traffic, initial encounter; Y93.9 Activity, unspecified; Y92.410 Unspecified street and highway as the place of occurrence of the external cause; Y99.9 Unspecified external cause status
CPT/HCPCS: 70450; 72040; 72100; 73030; 99284

== ENCOUNTER 2021-02-14 14:02 | Emergency (ER) | payer MEDICAID, SELFPAY ==
[2021-02-14 14:07] VITALS: BP 137/85; PULSE 101; RESP 16; TEMP 36.9; O2SAT 98; BMI 38.4
[2021-02-14] MEDS: Ondansetron ODT 4 MG TAB.RAPDIS TRANSLINGU (14:12)
[2021-02-14 16:26] LABS: Hematocrit 35.9 % (37-47); Hemoglobin 11.6 g/dl (12.0-16.0); Mean Corpuscular HGB Conc 32.3 g/dl (31.0-35.0); Mean Corpuscular Hemoglobin 27.5 pg (27.0-33.0); Mean Corpuscular Volume 85.1 fL (80-98); Mean Platelet Volume 10.8 fL (9.4-12.3); Platelet Count 198 X10*3/uL (160-400); Red Blood Count 4.22 X10*6/uL (4.20-5.50); Red Cell Distribution Width 14.1 % (11.0-16.0); White Blood Count 6.9 X10*3/uL (4.8-10.8)
[2021-02-14 16:42] LABS: Anion Gap 12 (12-20); Blood Urea Nitrogen 10 mg/dL (9-16); Calcium 9.7 mg/dL (8.4-10.2); Carbon Dioxide 28 mmol/L (22-29); Chloride 103 mmol/L (96-108); Creatinine Clr Calc Pharmacy 113.5; Estimated Glomerular Filt Rate > 60; Glucose Random 90 mg/dL (60-115); Potassium 4.6 mmol/L (3.3-5.1); Sodium 138 mmol/L (135-145)
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
[2021-02-14] MEDS: Ketorolac Tromethamine 60 MG/2 ML VIAL IM (18:03)
[2021-02-14] MEDS: Butalb/Acetamin/Caff 50/325/40 TABLET 1 TAB PO (18:20)
== END 2021-02-14 18:23 | disposition home or self-care (01) ==
PROVIDERS: Emergency Provider Internal Medicine
DX: G56.02 Carpal tunnel syndrome, left upper limb (principal); M79.602 Pain in left arm; R51.9 Headache, unspecified
CPT/HCPCS: 29125; 36415; 80048; 85027; 96372; 99283; 99284; J1885; J3030

== ENCOUNTER → 2021-07-17 13:38 | Outpatient (BNVA) | payer MEDICAID, SELFPAY | PROVIDERS: PCP Internal Medicine; Visit Provider Nurse Practitioner Family | DX: G43.109 Migraine with aura, not intractable, without status migrainosus (principal); M43.06 Spondylolysis, lumbar region; M43.02 Spondylolysis, cervical region; M79.18 Myalgia, other site; M75.41 Impingement syndrome of right shoulder; M25.561 Pain in right knee; M25.562 Pain in left knee; M54.12 Radiculopathy, cervical region; Z87.828 Personal history of other (healed) physical injury and trauma | CPT/HCPCS: 99202 ==

== ENCOUNTER 2021-08-11 06:17 | Outpatient (REF) | payer MEDICAID, SELFPAY | END 2021-08-11 06:18 | disposition home or self-care (01) | LOC: HO.RADIR 06:17 | PROVIDERS: Visit Provider Anesthesiology | DX: Z13.89 Encounter for screening for other disorder (principal) ==

== ENCOUNTER → 2021-08-14 11:18 | Outpatient (BNVA) | payer MEDICAID, SELFPAY | PROVIDERS: PCP Internal Medicine; Visit Provider Nurse Practitioner Family | DX: Z13.89 Encounter for screening for other disorder (principal) ==

== ENCOUNTER 2021-10-02 06:16 | Outpatient (REF) | payer MEDICAID, SELFPAY ==
--- NOTE | ~2021-10-02 | FL_ITS ---
EXAMINATION: XR FLUOROSCOPY WITH IMAGES CLINICAL INFORMATION: M54.12 - Radiculopathy, cervical region COMPARISON: Radiographs cervical spine 11/18/2020 TECHNIQUE: Fluoroscopy performed by Dr. Conrado Peralta. Fluoroscopy time: 0.3 minutes DAP: 0.902 Gycm2 Images: 2 FINDINGS: There is spinal needle just right of midline at interlaminar C6-C7 level. There is epidural contrast seen. No vascular communication demonstrated. FL/FL guidance in treatment room IMPRESSION: Fluoroscopy for pain management procedure.
== END 2021-10-02 06:17 | disposition home or self-care (01) ==
LOC: HO.RADIR 06:16
PROVIDERS: Visit Provider Internal Medicine
DX: M54.12 Radiculopathy, cervical region (principal)
CPT/HCPCS: 62321; J1040

== ENCOUNTER 2021-12-14 11:29 | Outpatient (REF) | payer MEDICAID, SELFPAY ==
--- NOTE | ~2021-12-14 | XR_ITS ---
EXAMINATION: XR HAND, BILATERAL CLINICAL INFORMATION: Pain. COMPARISON: None TECHNIQUE: 3 views of each hand. FINDINGS: LEFT HAND: There is no evidence of acute fracture or dislocation of the left hand. There appears to be an erosion with rim sclerosis involving the head of the 3rd metacarpal which appears to be para-articular. No significant soft tissue swelling is appreciated. No other bony erosions are identified. Joint spaces are maintained. RIGHT HAND: No bony abnormality of the right hand is identified. Joint spaces are maintained. No significant soft tissue swelling. XR/XR hand RT min 3V IMPRESSION: Normal bony appearance of the right hand. Sclerotic erosion involving the head of the left 3rd metacarpal with no other erosive or degenerative changes identified.
--- NOTE | ~2021-12-14 | XR_ITS ---
EXAMINATION: XR HAND, BILATERAL CLINICAL INFORMATION: Pain. COMPARISON: None TECHNIQUE: 3 views of each hand. FINDINGS: LEFT HAND: There is no evidence of acute fracture or dislocation of the left hand. There appears to be an erosion with rim sclerosis involving the head of the 3rd metacarpal which appears to be para-articular. No significant soft tissue swelling is appreciated. No other bony erosions are identified. Joint spaces are maintained. RIGHT HAND: No bony abnormality of the right hand is identified. Joint spaces are maintained. No significant soft tissue swelling. XR/XR hand LT min 3V IMPRESSION: Normal bony appearance of the right hand. Sclerotic erosion involving the head of the left 3rd metacarpal with no other erosive or degenerative changes identified.
== END 2021-12-14 11:30 | disposition home or self-care (01) ==
LOC: HO.XRAY 11:29
PROVIDERS: PCP Internal Medicine; Visit Provider Internal Medicine
DX: M79.89 Other specified soft tissue disorders (principal)
CPT/HCPCS: 73130

== ENCOUNTER 2022-05-22 12:32 | Emergency (ER) | payer MEDICAID, SELFPAY ==
--- NOTE | ~2022-05-22 | CT_ITS ---
EXAMINATION: CT ABDOMEN AND PELVIS WITHOUT CONTRAST CLINICAL INFORMATION: Left flank and left lower quadrant pain COMPARISON: CT abdomen pelvis August 20, 2020 TECHNIQUE: Multidetector volumetric imaging was performed from the superior aspect of the liver through the pubic symphysis. Sagittal and coronal reformatted images were obtained on the technologist's workstation. This CT examination was performed using dose optimization techniques as appropriate, variously including the following: *Automated exposure control *Adjustment of mA and/or kV according to patient size (this includes techniques or standardized protocols for targeted exams where dose is matched to indication/reason for exam; i.e. extremities or head) *Use of iterative reconstruction technique DLP: 738 mGy-cm FINDINGS: Visualized lung bases are well aerated. There is some minimal atelectasis versus scarring of the posterior left lung base. The liver is mildly enlarged and demonstrates diffusely decreased attenuation. The gallbladder is normal in appearance. The pancreas, spleen and adrenal glands are unremarkable. Symmetrically sized kidneys. Numerous punctate nonobstructing calculi are present bilaterally. There is no hydronephrosis of either kidney. Normal caliber loops of small and large bowel. Normal caliber abdominal aorta. Bladder is decompressed and therefore not accurately evaluated. Unremarkable CT appearance of the uterus. Small amount of free pelvic fluid, often times physiologic in a female of this age. No inguinal lymphadenopathy. No acute osseous abnormality. CT/CT abdomen pelvis wo IV con IMPRESSION: 1. Bilateral medullary nephrocalcinosis. No hydronephrosis. 2. Mild hepatomegaly with diffusely decreased liver attenuation. This is a nonspecific finding but most suggestive of hepatic steatosis. Correlation with liver enzymes recommended. Fleischner guidelines were followed.
--- NOTE | ~2022-05-22 | XR_ITS ---
EXAMINATION: LUMBAR SPINE. LEFT KNEE. CLINICAL INFORMATION: Fall. COMPARISON: None TECHNIQUE: Lumbar spine 3 views. Left knee 4 views. FINDINGS: LUMBAR SPINE: There is normal lumbar lordosis. The vertebral heights, alignment and disc heights are normal. No visible acute fracture, dislocation or subluxation seen. The paravertebral soft tissues are normal. LEFT KNEE: There is no visible acute fracture, dislocation or subluxation seen. The tricompartment joint space is maintained normal. The soft tissues are normal. XR/XR knee LT 4V IMPRESSION: Unremarkable lumbar spine exam. Unremarkable left knee exam.
--- NOTE | ~2022-05-22 | XR_ITS ---
EXAMINATION: LUMBAR SPINE. LEFT KNEE. CLINICAL INFORMATION: Fall. COMPARISON: None TECHNIQUE: Lumbar spine 3 views. Left knee 4 views. FINDINGS: LUMBAR SPINE: There is normal lumbar lordosis. The vertebral heights, alignment and disc heights are normal. No visible acute fracture, dislocation or subluxation seen. The paravertebral soft tissues are normal. LEFT KNEE: There is no visible acute fracture, dislocation or subluxation seen. The tricompartment joint space is maintained normal. The soft tissues are normal. XR/XR lumbar spine 2-3V IMPRESSION: Unremarkable lumbar spine exam. Unremarkable left knee exam.
[2022-05-22 12:42] VITALS: BP 104/57; PULSE 89; RESP 18; TEMP 36.6; O2SAT 98; BMI 38.3
--- NOTE | 2022-05-22 12:42 | ED_ITS ---
HPI - General Adult General Chief complaint: General Medical <DAVID Mehta Last Filed: 05/22/22 12:48> Stated complaint: lower abd pain, fall 05/21/21 <DAVID Mehta Last Filed: 05/22/22 12:48> Time Seen by Provider: 05/22/22 14:24 <DAVID Mehta Last Filed: 05/22/22 12:48> Source: patient <DAVID Corona Last Filed: 05/22/22 16:58> Mode of arrival: ambulatory <DAVID Corona Last Filed: 05/22/22 16:58> Limitations: no limitations <DAVID Corona Last Filed: 05/22/22 16:58> History of Present Illness HPI narrative: 31 yo female with history of cervical and lumbar spondylosis with radiculopathy, migraine headaches, kidney stones who is presenting to the ER with left-sided flank pain for the last 1 week. Patient states that the pain started in her left flank it is now radiating to the left groin and left lower quadrant. She states she is nauseous and having increased urinary frequency, only urinating small amounts. She denies any dysuria or fevers. She has been nauseous but not vomiting. She states since yesterday the pain in her left flank is now located in the right flank as well. She went to [facility] ER yesterday and left without being seen. She states yesterday when in the kitchen she tripped or lost her balance and fell against a small freezer, injuring her left knee and lower back. She is able to ambulate but with discomfort. She did not hit her head or lose consciousness. <DAVID Corona Last Filed: 05/22/22 16:58> MD complaint: Left flank pain, LLQ pain and nausea <DAVID Corona Last Filed: 05/22/22 16:58> Onset (ago): week(s) (1) <DAVID Corona Last Filed: 05/22/22 16:58> Location: back and abdomen <DAVID Corona Last Filed: 05/22/22 16:58> Radiation: abdomen and flank <DAVID Corona Filed: 05/22/22 16:58> Severity: severe <DAVID Corona - Last Filed: 05/22/22 16:58> Severity scale (1-10): >10 (12) <DAVID Corona - Last Filed: 05/22/22 16:58> Quality: stabbing and aching <DAVID Corona Last Filed: 05/22/22 16:58> Pain Consistency: constant <DAVID Corona Last Filed: 05/22/22 16:58> Relieving factors: none <DAVID Corona Last Filed: 05/22/22 16:58> Exacerbating factors: movement <DAVID Corona - Last Filed: 05/22/22 16:58> Associated symptoms: loss of appetite, malaise, nausea/vomiting and weakness <DAVID Corona Last Filed: 05/22/22 16:58> Treatments prior to arrival: none <DAVID Corona Last Filed: 05/22/22 16:58> Related Data Home medications: Previous Rx's Medication Instructions Recorded aaskqxzrof-gplrhipjaautt-rvsbbudz 1 tab PO Q6H PRN headache 30 days 07/28/21 50 mg-325 mg-40 mg tablet #20 tabs amitriptyline 10 mg tablet 10 mg PO BEDTIME PRN pain 30 days 08/14/21 #30 tabs baclofen 10 mg tablet 10 mg PO TID PRN muscle spasticity 08/14/21 30 days #90 tabs naproxen 500 mg tablet,delayed 500 mg PO BID PRN pain #20 tabs 05/22/22 release <DAVID Mehta - Last Filed: 05/22/22 12:48> Allergies/adverse reactions: Allergies Allergy/AdvReac Type Severity Reaction Status Date / Time No Known Allergies Allergy Verified 10/02/21 11:19 <DAVID Mehta - Last Filed: 05/22/22 12:48> Review of Systems Review of Systems: Yes all other systems are reviewed and are negative <DAVID Corona Last Filed: 05/22/22 16:58> PMFSH Past Medical History Medical History: Medical History Asthma Depression History of anemia Hypertension Kidney stones <DAVID Mehta - Last Filed: 05/22/22 12:48> Surgical History: Surgical History Tubal ligation status <DAVID Mehta - Last Filed: 05/22/22 12:48> Social History Social History: Social History Alcohol intake: current Alcohol intake frequency: does not drink Advance Directives: No Advance Directives Information Provided: No <DAVID Mehta - Last Filed: 05/22/22 12:48> Physical Exam ED Vital Signs: Vital Signs - 24 hr 05/22/22 12:42 05/22/22 16:25 Temperature 97.9 F 98.4 F Pulse Rate 89 69 Respiratory Rate 18 18 Blood Pressure 104/57 L 91/50 L Pulse Oximetry 98 97 Oxygen Delivery Method Room Air Room Air BMI result Body Mass Index 38.3 <DAVID Mehta - Last Filed: 05/22/22 12:48> Vital Signs - 24 hr 05/22/22 12:42 05/22/22 16:25 Temperature 97.9 F 98.4 F Pulse Rate 89 69 Respiratory Rate 18 18 Blood Pressure 104/57 L 91/50 L Pulse Oximetry 98 97 Oxygen Delivery Method Room Air Room Air BMI result Body Mass Index 38.3 <DAVID Corona - Last Filed: 05/22/22 16:58> Appearance: Alert. Oriented X3. No acute distress. Eyes: Pupils equal, round and reactive to light. ENT: Pharynx normal. Neck: Normal inspection. Neck supple. CVS: Normal heart rate and rhythm. Pulses normal. Respiratory: No respiratory distress. Breath sounds normal. Abdomen: Obese, Soft with left lower quadrant tenderness to deep palpation. Positive CVA tenderness on the left. Normal bowel sounds +BS x4 Skin: Skin warm and dry. Normal skin color. Normal skin turgor. No rashes. Extremities: Left knee with mild generalized swelling, pain with full extension or flexion past 90 degrees. No appreciated joint laxity. No palpable effusion. Normal palpation of the patella. No lower extremity edema bilaterally. Neuro: Oriented X 3. No motor deficit. No sensory deficit. Nonfocal <DAVID Corona Last Filed: 05/22/22 16:58> Course Course Course Narrative: RME performed by Lyudmila Dobson PA-C. Patient is a 31 year old female presenting to the emergency department with abdominal pain and a fall. Patient states that her left knee and low back hurt after the fall. Denies any head strike or LOC. Labs and imaging ordered. Patient placed back in waiting room pending results and room availability. <DAVID Mehta - Last Filed: 05/22/22 12:48> Reevaluation(s) Reevaluation #1: Patient seen and evaluated in the treatment room. She is concerned about a kidney stone. She is reporting worsening pain and nausea. Will get CT scan for further evaluation. test is negative. urinalysis is pending. <DAVID Corona Last Filed: 05/22/22 16:58> Reevaluation #2: UA negative for infection, no blood. CT scan without any hydronephrosis or kidney stones in the ureter. No traumatic injury. Patient awoken from sleep to discuss the normal results. At this time comfortable discharge home with NSAIDs for pain. She was encouraged with her primary care doctor. Stable for discharge home. Patient agrees with plan all questions were answered. <DAVID Corona - Last Filed: 05/22/22 16:58> Medications Administered Discontinued Medications Generic Name Dose Route Start Last Admin Trade Name Aleja PRN Reason Stop Dose Admin Acetaminophen 975 mg 05/22/22 14:35 05/22/22 15:22 Acetaminophen 325 Mg Tablet PO 05/22/22 14:36 975 mg ONCE ONE Administration Ketorolac Tromethamine 30 mg 05/22/22 14:35 05/22/22 15:22 Ketorolac Tromethamine 30 Mg/Ml Vial IM 05/22/22 14:36 30 mg ONCE ONE Administration Ondansetron HCl 4 mg 05/22/22 14:35 05/22/22 15:22 Ondansetron Odt 4 Mg Tab.Rapdis TRANSLINGU 05/22/22 14:36 4 mg ONCE ONE Administration Oxycodone HCl 5 mg 05/22/22 14:35 05/22/22 15:22 Oxycodone Hcl Immed Release 5 Mg Tablet PO 05/22/22 14:36 5 mg ONCE ONE Administration <DAVID Mehta - Last Filed: 05/22/22 12:48> Medications Administered Discontinued Medications Generic Name Dose Route Start Last Admin Trade Name Aleja PRN Reason Stop Dose Admin Acetaminophen 975 mg 05/22/22 14:35 05/22/22 15:22 Acetaminophen 325 Mg Tablet PO 05/22/22 14:36 975 mg ONCE ONE Administration Ketorolac Tromethamine 30 mg 05/22/22 14:35 05/22/22 15:22 Ketorolac Tromethamine 30 Mg/Ml Vial IM 05/22/22 14:36 30 mg ONCE ONE Administration Ondansetron HCl 4 mg 05/22/22 14:35 05/22/22 15:22 Ondansetron Odt 4 Mg Tab.Rapdis TRANSLINGU 05/22/22 14:36 4 mg ONCE ONE Administration Oxycodone HCl 5 mg 05/22/22 14:35 05/22/22 15:22 Oxycodone Hcl Immed Release 5 Mg Tablet PO 05/22/22 14:36 5 mg ONCE ONE Administration <DAVID Corona - Last Filed: 05/22/22 16:58> Medical Decision Making Medical Decision Making [facility] Narrative: 31-year-old female presenting with left flank pain radiating to left lower quadrant. History of kidney stones she reports this feels similar. She also had recent trauma. Lab workup was unremarkable but will get CT scan for further evaluation of possible obstructing kidney stone verses possible hematoma or traumatic injury. She appears well. <DAVID Corona Last Filed: 05/22/22 16:58> Differential Diagnosis Differential Diagnoses: The differential diagnosis associated with the presentation includes <DAVID Corona Last Filed: 05/22/22 16:58> Obstructing kidney stone pyelonephritis, splenic injury, broken rib, UTI, colitis, diverticulitis <DAVID Corona Last Filed: 05/22/22 16:58> Lab Data [facility] Lab Attestation statement: I reviewed the patient's lab results. <DAVID Corona Last Filed: 05/22/22 16:58> Independently reviewed, normal CBC, normal metabolic panel without any major metabolic derangements or electrolyte abnormalities. Urinalysis is unremarkable. <DAVID Corona - Last Filed: 05/22/22 16:58> Result Diagrams: 05/22/22 13:34 05/22/22 13:34 <DAVID Mehta - Last Filed: 05/22/22 12:48> Labs: Lab Results 05/22/22 05/22/22 05/22/22 Range/Units 13:34 13:34 15:28 WBC 8.3 (4.8-10.8) X10*3/uL RBC 4.40 (4.20-5.50) X10*6/uL Hgb 12.0 (12.0-16.0) g/dl Hct 37.3 (37.0-47.0) % MCV 84.8 (80.0-98.0) fL MCH 27.3 (27.0-33.0) pg MCHC 32.2 (31.0-35.0) g/dl RDW 13.4 (11.0-16.0) % Plt Count 202 (160-400) X10*3/uL MPV 10.4 (9.4-12.3) fL Immature Gran % (Auto) 0.5 H (0.0-0.4) % Neut % (Auto) 65.1 (45-73) % Lymph % (Auto) 26.2 (20-40) % Clark % (Auto) 5.5 (2-11) % Eos % (Auto) 2.2 (0-4) % Baso % (Auto) 0.5 (0-2) % Lymph # (Auto) 2.2 (1.2-4.9) X10*3/uL Clark # (Auto) 0.5 (0.1-1.2) X10*3/uL Eos # (Auto) 0.2 (0.0-0.4) X10*3/uL Baso # (Auto) 0.0 (0.0-0.2) X10*3/uL Abs Immat Gran (auto) 0.04 H (0.00-0.03) X10*3/uL Absolute Neuts (auto) 5.4 (2.0-8.3) x10*3/uL Absolute Nucleated RBC 0.000 (0.0-0.012) X10*3/uL Nucleated RBC % (auto) 0.0 (0.0-0.2) /100WBC Sodium 138 (135-145) mmol/L Potassium 4.7 (3.3-5.1) mmol/L Chloride 105 (96-108) mmol/L Carbon Dioxide 21 L (22-29) mmol/L Anion Gap 17 (12-20) BUN 12 (9-16) mg/dL Creatinine 0.69 (0.5-1.4) mg/dL Estim Creat Clear Calc 127.1 Estimated GFR > 60 Random Glucose 108 (60-115) mg/dL Calcium 9.4 (8.4-10.2) mg/dL Magnesium 1.8 (1.6-2.6) mg/dL Total Bilirubin 0.2 (0.0-1.0) mg/dL AST 31 D (5-31) U/L ALT 35 H (0-31) U/L Alkaline Phosphatase 57 (39-117) U/L Total Protein 7.8 (6.5-8.0) g/dL Albumin 4.5 (3.5-5.0) g/dL Beta HCG, Quant < 2 mIU/mL Urine Color Yellow Urine Appearance Clear Urine pH 6.0 (5.0-9.0) Ur Specific [place] 1.025 (1.005-1.025) Urine Protein Negative (Neg-Trace) mg/dL Urine Glucose (UA) Negative (Negative) mg/dL Urine Ketones Negative (Negative) mg/dL Urine Blood Negative (Negative) Urine Nitrite Negative (Negative) Ur Leukocyte Esterase Negative (Negative) <DAVID Mehta - Last Filed: 05/22/22 12:48> Lab Results 05/22/22 05/22/22 05/22/22 Range/Units 13:34 13:34 15:28 WBC 8.3 (4.8-10.8) X10*3/uL RBC 4.40 (4.20-5.50) X10*6/uL Hgb 12.0 (12.0-16.0) g/dl Hct 37.3 (37.0-47.0) % MCV 84.8 (80.0-98.0) fL MCH 27.3 (27.0-33.0) pg MCHC 32.2 (31.0-35.0) g/dl RDW 13.4 (11.0-16.0) % Plt Count 202 (160-400) X10*3/uL MPV 10.4 (9.4-12.3) fL Immature Gran % (Auto) 0.5 H (0.0-0.4) % Neut % (Auto) 65.1 (45-73) % Lymph % (Auto) 26.2 (20-40) % Clark % (Auto) 5.5 (2-11) % Eos % (Auto) 2.2 (0-4) % Baso % (Auto) 0.5 (0-2) % Lymph # (Auto) 2.2 (1.2-4.9) X10*3/uL Clark # (Auto) 0.5 (0.1-1.2) X10*3/uL Eos # (Auto) 0.2 (0.0-0.4) X10*3/uL Baso # (Auto) 0.0 (0.0-0.2) X10*3/uL Abs Immat Gran (auto) 0.04 H (0.00-0.03) X10*3/uL Absolute Neuts (auto) 5.4 (2.0-8.3) x10*3/uL Absolute Nucleated RBC 0.000 (0.0-0.012) X10*3/uL Nucleated RBC % (auto) 0.0 (0.0-0.2) /100WBC Sodium 138 (135-145) mmol/L Potassium 4.7 (3.3-5.1) mmol/L Chloride 105 (96-108) mmol/L Carbon Dioxide 21 L (22-29) mmol/L Anion Gap 17 (12-20) BUN 12 (9-16) mg/dL Creatinine 0.69 (0.5-1.4) mg/dL Estim Creat Clear Calc 127.1 Estimated GFR > 60 Random Glucose 108 (60-115) mg/dL Calcium 9.4 (8.4-10.2) mg/dL Magnesium 1.8 (1.6-2.6) mg/dL Total Bilirubin 0.2 (0.0-1.0) mg/dL AST 31 D (5-31) U/L ALT 35 H (0-31) U/L Alkaline Phosphatase 57 (39-117) U/L Total Protein 7.8 (6.5-8.0) g/dL Albumin 4.5 (3.5-5.0) g/dL Beta HCG, Quant < 2 mIU/mL Urine Color Yellow Urine Appearance Clear Urine pH 6.0 (5.0-9.0) Ur Specific [place] 1.025 (1.005-1.025) Urine Protein Negative (Neg-Trace) mg/dL Urine Glucose (UA) Negative (Negative) mg/dL Urine Ketones Negative (Negative) mg/dL Urine Blood Negative (Negative) Urine Nitrite Negative (Negative) Ur Leukocyte Esterase Negative (Negative) <DAVID Corona - Last Filed: 05/22/22 16:58> Independent Interpretation I performed an independent interpretation of an: CT Scan <DAVID Corona - Last Filed: 05/22/22 16:58> Interpretation: CT scan does not show any visible ureteral kidney stones, no hydronephrosis or obstruction. No evidence of traumatic injury. <DAVID Corona - Last Filed: 05/22/22 16:58> Radiology Impression Discussion of test interpretation with radiology: I have reviewed the radiologist's reading. <DAVID Corona - Last Filed: 05/22/22 16:58> Radiologist Impression: IMPRESSION: 1.? Bilateral medullary nephrocalcinosis. No hydronephrosis. 2.? Mild hepatomegaly with diffusely decreased liver attenuation. This is a nonspecific finding but most suggestive of hepatic steatosis. Correlation with liver enzymes recommended. <DAVID Corona - Last Filed: 05/22/22 16:58> Independent Historian Clinical information obtained from an independent historian. History obtained from or confirmed by: Friend <DAVID Corona - Last Filed: 05/22/22 16:58> External Record Review External record reviewed: Outpatient record, Prior outpatient labs and Prior outpatient radiology <DAVID Corona Last Filed: 05/22/22 16:58> Prescription Management I considered prescription management with: Pain Medication <DAVID Corona Last Filed: 05/22/22 16:58> Improved with treatment including NSAID, Tylenol, oxycodone. <DAVID Corona - Last Filed: 05/22/22 16:58> Discharge Plan Discharge Clinical Impression: Abdominal wall pain in left flank <DAVID Mehta - Last Filed: 05/22/22 12:48> Patient Disposition: Home, Self-Care <DAVID Mehta - Last Filed: 05/22/22 12:48> Instructions: Abdominal Pain (ED) <DAVID Mehta - Last Filed: 05/22/22 12:48> Additional Instructions: Your CT scan did not show any causes of your pain. Your lab workup was unremarkable. Your urine test was negative for infection and . Take the prescribed anti-inflammatory pain medication as needed for pain. Recommend ice your knee and back as needed for pain. Rest, no strenuous activity. Follow-up with primary care doctor. If you develop new or worsening symptoms call 911 or come back to the ER for further evaluation. <DAVID Mehta - Last Filed: 05/22/22 12:48> Prescriptions: New naproxen 500 mg tablet,delayed release (DR/EC) 500 mg PO BID PRN (Reason: pain) Qty: 20 0RF No Action pklhhejtrn-fxjueyiwmspwm-haiu 50-325-40 mg tablet 1 tab PO Q6H PRN (Reason: headache) 30 Days Qty: 20 0RF amitriptyline 10 mg tablet 10 mg PO BEDTIME PRN (Reason: pain) 30 Days Qty: 30 0RF baclofen 10 mg tablet 10 mg PO TID PRN (Reason: muscle spasticity) 30 Days Qty: 90 0RF <DAVID Mehta - Last Filed: 05/22/22 12:48> Referrals: [facility] [Primary Care Provider] - <DAVID Mehta Last Filed: 05/22/22 12:48> Stand Alone Forms: Work/School Release <DAVID Mehta Last Filed: 05/22/22 12:48> Interventions: ED Discharge Assessment Last Done: 05/22/22 16:50 <DAVID Mehta Last Filed: 05/22/22 12:48> Discharge Date/Time: 05/22/22 16:50 <DAVID Mehta - Last Filed: 05/22/22 12:48>
[2022-05-22 13:39] LABS: MANUAL DIFF FLAG NO
[2022-05-22 13:41] LABS: Basophils Percent Auto 0.5 % (0-2); Eosinophils Absolute Auto 0.2 X10*3/uL (0.0-0.4); Eosinophils Percent Auto 2.2 % (0-4); Hematocrit 37.3 % (37.0-47.0); Imm Gran Abs Auto 0.04 X10*3/uL (0.00-0.03); Imm Gran Pct Auto 0.5 % (0.0-0.4); Lymphocytes Absolute Auto 2.2 X10*3/uL (1.2-4.9); Lymphocytes Percent Auto 26.2 % (20-40); Mean Corpuscular HGB Conc 32.2 g/dl (31.0-35.0); Mean Corpuscular Hemoglobin 27.3 pg (27.0-33.0); Mean Corpuscular Volume 84.8 fL (80.0-98.0); Mean Platelet Volume 10.4 fL (9.4-12.3); Monocytes Absolute Auto 0.5 X10*3/uL (0.1-1.2); Monocytes Percent Auto 5.5 % (2-11); Neutrophils Absolute Auto 5.4 x10*3/uL (2.0-8.3); Neutrophils Percent Auto 65.1 % (45-73); Platelet Count 202 X10*3/uL (160-400); Red Cell Distribution Width 13.4 % (11.0-16.0); White Blood Count 8.3 X10*3/uL (4.8-10.8)
[2022-05-22 14:12] LABS: HCG Quantitative < 2 mIU/mL
[2022-05-22 14:18] LABS: Alanine Aminotransferase 35 U/L (0-31); Albumin Level 4.5 g/dL (3.5-5.0); Alkaline Phosphatase 57 U/L (39-117); Anion Gap 17 (12-20); Aspartate Amino Transferase 31 U/L (5-31); Bilirubin Total 0.2 mg/dL (0.0-1.0); Blood Urea Nitrogen 12 mg/dL (9-16); Calcium 9.4 mg/dL (8.4-10.2); Carbon Dioxide 21 mmol/L (22-29); Chloride 105 mmol/L (96-108); Creatinine Clr Calc Pharmacy 127.1; Estimated Glomerular Filt Rate > 60; Glucose Random 108 mg/dL (60-115); Magnesium 1.8 mg/dL (1.6-2.6); Potassium 4.7 mmol/L (3.3-5.1); Sodium 138 mmol/L (135-145); Total Protein 7.8 g/dL (6.5-8.0)
[2022-05-22] MEDS: Acetaminophen 325 MG TABLET 975 MG PO (15:22)
[2022-05-22] MEDS: oxyCODONE HCl Immed Release 5 MG TABLET PO (15:22)
[2022-05-22] MEDS: Ketorolac Tromethamine 30 MG/ML VIAL IM (15:22)
[2022-05-22] MEDS: Ondansetron ODT 4 MG TAB.RAPDIS TRANSLINGU (15:22)
[2022-05-22 15:39] LABS: Appearance Urine Clear; Color Urine Yellow; Glucose Urine UA Negative (Negative); Leukocyte Esterase Urine Negative (Negative); Nitrite Urine Negative (Negative); Specific Gravity - Urine 1.025 (1.005-1.025); Urine Blood Negative (Negative); Urine Ketones Negative (Negative); Urine Protein Negative (Neg-Trace)
[2022-05-22 16:25] VITALS: BP 91/50; PULSE 69; RESP 18; TEMP 36.9; O2SAT 97
== END 2022-05-22 16:50 | disposition home or self-care (01) ==
PROVIDERS: Physician Assistant Medical; Emergency Provider Emergency Medicine Emergency Medical Services
DX: R10.9 Unspecified abdominal pain (principal); M25.562 Pain in left knee; M54.50 Low back pain, unspecified
CPT/HCPCS: 36415; 72100; 73564; 74176; 80053; 81003; 83735; 84702; 85025; 96372; 99284; J1885

== ENCOUNTER 2022-11-15 12:10 | Emergency (ER) | payer MEDICAID, SELFPAY ==
[2022-11-15 12:28] VITALS: BP 140/85; PULSE 100; RESP 16; TEMP 36.8; O2SAT 98; BMI 40.4
--- NOTE | 2022-11-15 16:26 | ED.FEMALEGU ---
HPI - Female Genitourinary General Chief complaint: Urogenital-Female Stated complaint: UTI worsening symptoms Time Seen by Provider: 11/15/22 13:31 Source: patient and RN notes reviewed Mode of arrival: ambulatory Limitations: no limitations History of Present Illness HPI Narrative: This is a 32-year-old female presenting to the emergency department for evaluation urinary urgency and dysuria x 1 week. Patient reports that she was seen by an urgent care where she was prescribed Macrobid which she has been taking as directed, last dose this morning however her symptoms have resolved. Patient denies any fevers, chills, abdominal pain, nausea, vomiting, or diarrhea. Denies any vaginal discharge or bleeding. Denies any other complaints or concerns at this time. MD elicited complaint: dysuria and UTI Onset (ago): week(s) Severity: mild Female Urogenital Radiation: Non-Radiating Quality of pain: aching Consistency: constant Vaginal discharge: none Vaginal bleeding: none Urinary symptoms: Dysuria, Urgency and Frequency Exacerbating factors: urination Relieving factors: urination Associated symptoms: denies other symptoms Treatment prior to arrival: none Sexual activity: Yes Related Data Previous Rx's Medication Instructions Recorded ejnhtvtzsr-ghmsuxvuxlros-sgaudnzb 1 tab PO Q6H PRN headache 30 days 07/28/21 50 mg-325 mg-40 mg tablet #20 tabs amitriptyline 10 mg tablet 10 mg PO BEDTIME PRN pain 30 days 08/14/21 #30 tabs baclofen 10 mg tablet 10 mg PO TID PRN muscle spasticity 08/14/21 30 days #90 tabs naproxen 500 mg tablet,delayed 500 mg PO BID PRN pain #20 tabs 05/22/22 release cefuroxime axetil 250 mg tablet 500 mg PO BID 7 days #28 tabs 11/15/22 phenazopyridine 200 mg tablet 200 mg PO TID PRN pain 3 days #7 11/15/22 (Pyridium) tabs Allergies Allergy/AdvReac Type Severity Reaction Status Date / Time No Known Allergies Allergy Verified 10/02/21 11:19 Review of Systems Review of Systems: Constitutional: No Weight loss, No Fever, No Chills ENT/Mouth: No Ear Pain, No Nasal Congestion, No Sinus Pain, No Hoarseness, No sore throat, No Rhinorrhea, No Swallowing Difficulty Cardiovascular: No Chest Pain, No SOB Respiratory: No Cough, No Sputum, No Wheezing Gastrointestinal: No Nausea, No Vomiting, No Diarrhea, No Constipation, No Abdominal pain Genitourinary: + Dysuria, No Urinary Frequency, No Hematuria, No Urinary Incontinence/retention, + Urgency, No Flank Pain Musculoskeletal: No joint pain, No Myalgias, No Joint Swelling Skin: No Skin Lesions, No rash Neuro: No Weakness, No Numbness, No Paresthesias Yes all other systems are reviewed and are negative Constitutional: Constitutional: Reports as per [facility] Past Medical History Medical History Asthma Depression History of anemia Hypertension Kidney stones Surgical History Tubal ligation status Social History Social History Alcohol intake: current Alcohol intake frequency: does not drink Advance Directives: No Advance Directives Information Provided: No Physical Exam Vital Signs: Vital Signs: Last Vital Signs Temp 97.3 F 11/15/22 16:29 Pulse 83 11/15/22 16:29 Resp 16 11/15/22 16:29 BP 112/71 11/15/22 16:29 Pulse Ox 96 11/15/22 16:29 O2 Del Method Room Air 11/15/22 16:29 BMI result Body Mass Index 40.4 Const: General: cooperative, comfortable and no acute distress Orientation/consciousness: patient oriented x3 Limitations: no limitations HEENT: Head: Yes normal to inspection, Yes normocephalic and Yes atraumatic Ears: hearing grossly normal bilaterally General nose exam: Normal external nose present Face and sinus: Yes normal facial exam Mouth: Normal oral and palatal mucosa present, oropharynx normal and moist mucous membranes Throat: Yes posterior oropharynx normal Eyes: General: appearance normal, both eyes and all related structures Eyelids: Yes eyelids normal Conjunctivae: conjunctivae normal Sclerae: sclerae normal Pupils: Equal, round and reactive pupils present EOM: EOMs intact bilaterally Neck: Neck: Yes normal visual inspection, Yes full ROM and Yes no lymphadenopathy Lymphatic: no lymphadenopathy noted Chest: Chest palpation & inspection: normal inspection of the chest Resp: Effort & Inspection: normal respiratory effort and able to speak in complete sentences Auscultation: clear to auscultation bilaterally, no crackles, no rales, no rhonchi and no wheezes Cardio: Rate: regular rate Rhythm: regular rhythm Heart sounds: S1 normal heart sound present and S2 normal heart sound present GI: Other: Abdomen is soft, nontender nondistended. Normoactive bowel sounds present in all 4 quadrants. Inspection: Yes normal to inspection : General: Yes no CVA tenderness Back/Spine/Pelvis: Back: no CVA tenderness Skin: General skin exam: no rashes or lesions noted Trauma: no lacerations or abrasions Wounds: no wounds Neuro: General: patient oriented x3 and moves all extremities Cranial nerves: Yes Equal, round and reactive pupils present Extrem: General: Yes normal to inspection Right upper extremity: normal to inspection Left upper extremity: normal to inspection Right lower extremity: normal to inspection Left lower extremity: normal to inspection Medical Decision Making Medical Decision Making [facility] Narrative: 32-year-old female presenting to the emergency department for evaluation of dysuria and urinary urgency the last week, patient was treated with macrobid, will which she took as directed her symptoms persist. Denies any fevers or chills, nausea, vomiting, or diarrhea. On examination, abdomen is soft nontender, no CVA tenderness. Patient reports that she is unsure whether not she is fully emptying her bladder, bladder scan was only 5 cc noted to be in the bladder. Patient's symptoms consistent with urinary tract infection given symptoms and small blood and leuk esterase found on urinalysis. Will treat with course of cefuroxime. Educated the importance of staying well hydrated and to return if any new or worsening symptoms occur. Patient understands and agrees with plan. Patient stable for discharge. Differential Diagnosis Differential Diagnoses: The differential diagnosis associated with the presentation includes UTI, nephrolithiasis, pyelonephritis, STI, urinary retention Admission/Observation Consideration of admission/observation: Escalation of care including admission/observation considered Escalation of care was considered given recurrent UTI Lab Data [facility] Lab Attestation statement: I reviewed the patient's lab results. Urinalysis consistent with urinary tract infection Labs: Lab Results 11/15/22 11/15/22 Range/Units 12:40 12:40 Urine Color Yellow Urine Appearance Clear Urine pH 6.5 (5.0-9.0) Ur Specific [place] <= 1.005 (1.005-1.025) Urine Protein Negative (Neg-Trace) mg/dL Urine Glucose (UA) Negative (Negative) mg/dL Urine Ketones Negative (Negative) mg/dL Urine Blood Small (1+) H (Negative) Urine Nitrite Negative (Negative) Ur Leukocyte Esterase Trace H (Negative) Urine RBC 0-2 (0-2) /HPF Urine WBC 0-5 (0-5) /HPF Ur Squamous Epith Cells 0-2 (0-2) /HPF Urine Bacteria None Seen (None Seen) Hyaline Casts 0-2 (0-2) /LPF Urine Test NEGATIVE (NEGATIVE) Discharge Plan Discharge Clinical Impression: Urinary tract infection Patient Disposition: Home, Self-Care Instructions: Urinary Tract Infection in Women (ED) Additional Instructions: Please take entire course of antibiotics as directed. Finish the entire course even if your feeling better. We are sending a urine out for further testing, we will call you with any abnormal results. Drink plenty of fluids get plenty of rest. If any new or worsening symptoms occur please return for re-evaluation. Prescriptions: New cefuroxime axetil 250 mg tablet 500 mg PO BID 7 Days Qty: 28 0RF phenazopyridine [Pyridium] 200 mg tablet 200 mg PO TID PRN (Reason: pain) 3 Days Qty: 7 0RF No Action ytxhaqaybl-shwdsuxrqbhkq-wpqw 50-325-40 mg tablet 1 tab PO Q6H PRN (Reason: headache) 30 Days Qty: 20 0RF naproxen 500 mg tablet,delayed release (DR/EC) 500 mg PO BID PRN (Reason: pain) Qty: 20 0RF amitriptyline 10 mg tablet 10 mg PO BEDTIME PRN (Reason: pain) 30 Days Qty: 30 0RF baclofen 10 mg tablet 10 mg PO TID PRN (Reason: muscle spasticity) 30 Days Qty: 90 0RF Interventions: ED Discharge Assessment Last Done: 11/15/22 17:26 Discharge Date/Time: 11/15/22 17:30
--- NOTE | 2022-11-15 16:28 | PC.NURSE ---
Pt. instructed to void, and then this RN completed a post-void residual bladder scan. Pt.'s bladder scanned for 10mL. DAVID Zelaya notified and aware.
[2022-11-15 16:29] VITALS: BP 112/71; PULSE 83; RESP 16; TEMP 36.3; O2SAT 96
== END 2022-11-15 17:30 | disposition home or self-care (01) ==
PROVIDERS: Emergency Provider Emergency Medicine Emergency Medical Services
DX: N39.0 Urinary tract infection, site not specified (principal)
CPT/HCPCS: 51798; 81001; 81025; 99283

== ENCOUNTER 2022-11-28 00:15 | Emergency (ER) | payer MEDICAID, SELFPAY | END 2022-11-28 00:39 | disposition left against medical advice (07) | PROVIDERS: Emergency Provider Emergency Medicine | DX: N23 Unspecified renal colic (principal) ==

== ENCOUNTER 2022-12-16 15:35 | Outpatient (REF) | payer MEDICAID, SELFPAY ==
[2022-12-16 18:29] LABS: Anion Gap 15 (12-20); Blood Urea Nitrogen 9 mg/dL (9-16); Calcium 10.1 mg/dL (8.4-10.2); Carbon Dioxide 21 mmol/L (22-29); Chloride 105 mmol/L (96-108); Estimated Glomerular Filt Rate > 60; Glucose Random 77 mg/dL (60-115); Potassium 4.3 mmol/L (3.3-5.1); Sodium 137 mmol/L (135-145)
[2022-12-16 18:49] LABS: TSH reflex Free T4 1.15 uIU/mL (0.32-4.0)
== END 2022-12-16 15:36 | disposition home or self-care (01) ==
LOC: HO.CHCLDS 15:35
PROVIDERS: Visit Provider Internal Medicine
DX: E66.9 Obesity, unspecified (principal); I10 Essential (primary) hypertension
CPT/HCPCS: 36415; 80048; 84443

== ENCOUNTER 2023-01-25 14:19 | Outpatient (REF) | payer MEDICAID, SELFPAY ==
[2023-01-26 03:54] LABS: Syphilis Screen Nonreactive (Nonreactive)
[2023-01-26 04:01] LABS: ~HepC Num1 0.35 S/CO (0.00-0.79); ~Hepatitis C Antibody Nonreactive (Nonreactive)
[2023-01-26 07:08] LABS: CT PCR NOT DETECTED (Not Detect.); NG PCR NOT DETECTED (Not Detect.)
[2023-01-28 17:19] LABS: HIV RNA PCR Qn Copies Not Detected Copies/mL; HIV RNA PCR Qn Log Copies Not Detected Log cps/mL
== END 2023-01-25 14:20 | disposition home or self-care (01) ==
LOC: HO.CHCLDS 14:19
PROVIDERS: Visit Provider Internal Medicine
DX: Z11.4 Encounter for screening for human immunodeficiency virus [HIV] (principal); Z20.2 Contact with and (suspected) exposure to infections with a predominantly sexual mode of transmission
CPT/HCPCS: 0353U; 86780; 86803; 87536; 87900

== ENCOUNTER 2023-02-10 15:52 | Emergency (ER) | payer MEDICAID, SELFPAY ==
--- NOTE | ~2023-02-10 | CT_ITS ---
EXAMINATION: CT ABDOMEN AND PELVIS WITHOUT CONTRAST CLINICAL INFORMATION: Left flank pain. COMPARISON: None available. TECHNIQUE: Multidetector volumetric imaging was performed from the superior aspect of the liver through the pubic symphysis. Sagittal and coronal reformatted images were obtained on the technologist's workstation. This CT examination was performed using dose optimization techniques as appropriate, variously including the following: *Automated exposure control *Adjustment of mA and/or kV according to patient size (this includes techniques or standardized protocols for targeted exams where dose is matched to indication/reason for exam; i.e. extremities or head) *Use of iterative reconstruction technique DLP: 793 mGy-cm FINDINGS: LUNG BASES: There is scarring at the left lung base. LIVER, GALLBLADDER, AND BILIARY TREE: The liver is of heterogeneous diminished attenuation. No focal liver lesions are seen. There is no intrahepatic biliary duct dilatation. The gallbladder is unremarkable with no evidence of radiopaque gallstones, gallbladder wall thickening, or obvious pericholecystic inflammatory changes. PANCREAS: Unremarkable. SPLEEN: Unremarkable. ADRENAL GLANDS: Unremarkable. KIDNEYS AND URETERS: The kidneys are normal in size, shape, and attenuation. Numerous scattered bilateral renal calculi are seen measuring 1 to as large as 4 mm. The renal pyramids are mildly dense. There is no hydronephrosis.. BLADDER: Unremarkable. GASTROINTESTINAL TRACT: There is retained stool throughout. The appendix is visualized and is within normal limits ABDOMINAL WALL: No significant hernia is appreciated. LYMPH NODES: Normal. VASCULAR: Unremarkable. PELVIC VISCERA: Unremarkable. OSSEOUS STRUCTURES: Unremarkable. CT/CT abdomen pelvis wo IV con IMPRESSION: Fatty infiltration of the liver. Numerous bilateral nonobstructing renal calculi. There is no hydronephrosis. Mildly dense renal pyramids possibly medullary sponge kidney. Retained stool throughout the colon. Fleischner guidelines were followed.
[2023-02-10 16:54] VITALS: BP 122/80; PULSE 92; RESP 18; TEMP 36.4; O2SAT 98; BMI 40.8
--- NOTE | 2023-02-10 16:57 | ED_ITS ---
HPI - General Adult General Chief complaint: Abdominal Pain Stated complaint: ? kidney stones, abdominal pain Time Seen by Provider: 02/10/23 19:58 Source: patient, RN notes reviewed and old records reviewed Mode of arrival: ambulatory Limitations: no limitations History of Present Illness HPI narrative: 32-year-old female presents for evaluation of bilateral flank pain. Patient reports her symptoms started last Tuesday on the left side. This was 5 days ago. Two days ago she noticed pain that started on her right side. She has some pain with urination but denies any blood in the urine or urinary frequency She states that when she tries to urinate ?only a little bit comes out. Denies any vaginal bleeding or discharge. Denies any fevers or chills No other complaints or concerns at this time She reports a history of kidney stone Related Data Previous Rx's Medication Instructions Recorded xppokgqduh-ptuygetquzitx-owegzaui 1 tab PO Q6H PRN headache 30 days 07/28/21 50 mg-325 mg-40 mg tablet #20 tabs amitriptyline 10 mg tablet 10 mg PO BEDTIME PRN pain 30 days 08/14/21 #30 tabs baclofen 10 mg tablet 10 mg PO TID PRN muscle spasticity 08/14/21 30 days #90 tabs naproxen 500 mg tablet,delayed 500 mg PO BID PRN pain #20 tabs 05/22/22 release cefuroxime axetil 250 mg tablet 500 mg (2 x 250 mg) PO BID 7 days 11/15/22 #28 tabs phenazopyridine 200 mg tablet 200 mg PO TID PRN pain 3 days #7 11/15/22 (Pyridium) tabs methocarbamol 500 mg tablet 500 mg PO TID PRN muscle spasms 02/10/23 #15 tabs Allergies Allergy/AdvReac Type Severity Reaction Status Date / Time No Known Allergies Allergy Verified 02/10/23 16:54 Review of Systems 2 Constitutional: Constitutional: Denies chills and Denies fever(s) Eyes: Eyes: Denies blurry vision Cardiovascular: Cardiovascular: Denies chest pain and Denies dyspnea Respiratory: Respiratory: Denies cough and Denies dyspnea Gastrointestinal: Gastrointestinal: Reports abdominal pain, Reports nausea and Reports vomiting Genitourinary: Genitourinary: Reports dysuria and Reports urinary hesitancy Musculoskeletal: Musculoskeletal: Reports back pain Integumentary/Breasts: Skin/Breast: Denies rash PMFSH Past Medical History Medical History Asthma Depression History of anemia Hypertension Kidney stones Surgical History Tubal ligation status Social History Social History Alcohol intake: current Alcohol intake frequency: does not drink Advance Directives: No Advance Directives Information Provided: No Physical Exam ED Vital Signs: Vital Signs - 24 hr 02/10/23 16:54 02/10/23 19:48 02/10/23 21:23 Temperature 97.6 F 96.9 F 97.2 F Pulse Rate 92 75 67 Respiratory Rate 18 18 14 Blood Pressure 122/80 111/60 99/50 L Pulse Oximetry 98 98 99 Oxygen Delivery Method Room Air Room Air Room Air BMI result Body Mass Index 40.8 Const General: healthy appearing, comfortable, no acute distress, alert and awake Nutritional Appearance: well nourished Orientation/consciousness: patient oriented x3 HENMT Head: Yes normocephalic and Yes atraumatic Eyes Eyelids: Yes eyelids normal Conjunctivae: conjunctivae normal Sclerae: sclerae normal Corneas: corneas normal Pupils: Equal, round and reactive pupils present EOM: EOMs intact bilaterally Neck Neck: Yes full ROM Resp Effort & Inspection: normal respiratory effort, able to speak in complete sentences, no audible wheezes and not labored Auscultation: clear to auscultation bilaterally Cardio Rate: regular rate Rhythm: regular rhythm GI Inspection: No distended Palpation (GI): Soft to palpation, not firm, nontender, no guarding and not rigid Auscultation: normoactive bowel sounds General: Yes CVA tenderness (bilaterally) Back/Spine/Pelvis Other: Tenderness in the bilateral lumbar paraspinous region without vertebral tenderness. Back: CVA tenderness (bilaterally) Skin General skin exam: no rashes or lesions noted and elasticity normal Neuro General: patient oriented x3 Cranial nerves: Yes CN's II-XII intact bilaterally, Yes Equal, round and reactive pupils present and Yes Bilaterally intact EOM present Cognition (Neuro): normal cognition Extrem Other: Moving all extremities well without any obvious deformities Course Course Course Narrative: RME: 32 yold female with pmh of kidney stones presents to the ED for bilateral flank pain with dysuia. Labs ordered Medications Administered Discontinued Medications Generic Name Dose Route Start Last Admin Trade Name Aleja PRN Reason Stop Dose Admin Sodium Chloride 1,000 mls @ 999 mls/hr 02/10/23 20:15 02/10/23 21:11 Ns IV 02/10/23 21:15 999 mls/hr .Q1H1M TASIA Administration Ketorolac Tromethamine 30 mg 02/10/23 20:08 02/10/23 21:11 Ketorolac Tromethamine 30 Mg/Ml Vial IVPUSH 02/10/23 20:09 30 mg ONCE ONE Administration Medical Decision Making Medical Decision Making [facility] Narrative: 32-year-old female presents for evaluation of flank pain. She reports a history of kidney stones and states this feels similar. On exam her pain is reproducible, she has no abdominal pain or tenderness. Her white count is noted to be 11.1 K which is possibly reactive. Her urine does not show any evidence of UTI, so pyelonephritis is felt to be less likely. Will get a CT scan of the abdomen pelvis to rule out obstructive uropathy. It is possible the patient's pain is musculoskeletal in origin Differential Diagnosis Differential Diagnoses: The differential diagnosis associated with the presentation includes Pyelonephritis Obstructive uropathy Muscle strain Cystitis Lab Data [facility] Lab Attestation statement: I reviewed the patient's lab results. Mild leukocytosis to 11.1 K. No anemia. Normal platelet count. Patient's CO2 is just below normal at 21. No significant electrolyte abnormalities. 02/10/23 17:11 02/10/23 17:11 Labs: Lab Results 02/10/23 Range/Units 17:11 WBC 11.1 H (4.8-10.8) X10*3/uL RBC 4.48 (4.20-5.50) X10*6/uL Hgb 12.0 (12.0-16.0) g/dl Hct 37.5 (37.0-47.0) % MCV 83.7 (80.0-98.0) fL MCH 26.8 L (27.0-33.0) pg MCHC 32.0 (31.0-35.0) g/dl RDW 14.4 (11.0-16.0) % Plt Count 266 D (160-400) X10*3/uL MPV 10.1 (9.4-12.3) fL Immature Gran % (Auto) 0.3 (0.0-0.4) % Neut % (Auto) 63.3 (45-73) % Lymph % (Auto) 29.0 (20-40) % [place] % (Auto) 5.8 (2-11) % Eos % (Auto) 1.3 (0-4) % Baso % (Auto) 0.3 (0-2) % Lymph # (Auto) 3.2 (1.2-4.9) X10*3/uL [place] # (Auto) 0.6 (0.1-1.2) X10*3/uL Eos # (Auto) 0.1 (0.0-0.4) X10*3/uL Baso # (Auto) 0.0 (0.0-0.2) X10*3/uL Abs Immat Gran (auto) 0.03 (0.00-0.03) X10*3/uL Absolute Neuts (auto) 7.1 (2.0-8.3) x10*3/uL Absolute Nucleated RBC 0.000 (0.0-0.012) X10*3/uL Nucleated RBC % (auto) 0.0 (0.0-0.2) /100WBC Sodium 138 (135-145) mmol/L Potassium 4.3 (3.3-5.1) mmol/L Chloride 105 (96-108) mmol/L Carbon Dioxide 21 L (22-29) mmol/L Anion Gap 16 (12-20) BUN 12 (9-16) mg/dL Creatinine 0.72 (0.5-1.4) mg/dL Estim Creat Clear Calc 124.9 Estimated GFR > 60 Random Glucose 99 (60-115) mg/dL Calcium 9.9 (8.4-10.2) mg/dL Total Bilirubin 0.2 (0.0-1.0) mg/dL AST 13 (5-31) U/L ALT 10 (0-31) U/L Alkaline Phosphatase 57 (39-117) U/L Total Protein 8.3 H (6.5-8.0) g/dL Albumin 4.5 (3.5-5.0) g/dL Beta HCG, Quant < 2 mIU/mL Urine Color Yellow Urine Appearance Clear Urine pH 6.0 (5.0-9.0) Ur Specific [place] 1.020 (1.005-1.025) Urine Protein Negative (Neg-Trace) mg/dL Urine Glucose (UA) Negative (Negative) mg/dL Urine Ketones Negative (Negative) mg/dL Urine Blood Negative (Negative) Urine Nitrite Negative (Negative) Ur Leukocyte Esterase Negative (Negative) Urine Test NEGATIVE (NEGATIVE) Independent Interpretation I performed an independent interpretation of an: CT Scan (Agree with radiology interpretation, mild to moderate constipation without obstructive uropathy) Radiology Impression Discussion of test interpretation with radiology: I have reviewed the radiologist's reading. (Fatty infiltration of the liver. Numerous bilateral nonobstructing renal calculi. There is no hydronephrosis. Mildly dense renal pyramids possibly medullary sponge kidney. Retained stool throughout the colon.) Discharge Plan Discharge Clinical Impression: Back pain Patient Disposition: Home, Self-Care Instructions: Back Pain (ED) Additional Instructions: Your workup in the emergency department today was reassuring. Your CT scan showed constipation but no evidence of obstructive kidney stones. Take MiraLax which is rjfe-lzu-ohfzjsy every night for the next 2 weeks Increase fluid and fiber intake in your diet You may use methocarbamol as needed for muscle spasms This may make you sleepy, did not drink alcohol or drive after taking Prescriptions: New methocarbamol 500 mg tablet 500 mg PO TID PRN (Reason: muscle spasms) Qty: 15 0RF No Action jhhraisjkg-vjenzyptonijj-vlul 50-325-40 mg tablet 1 tab PO Q6H PRN (Reason: headache) 30 Days Qty: 20 0RF naproxen 500 mg tablet,delayed release (DR/EC) 500 mg PO BID PRN (Reason: pain) Qty: 20 0RF cefuroxime axetil 250 mg tablet 500 mg PO BID 7 Days Qty: 28 0RF phenazopyridine [Pyridium] 200 mg tablet 200 mg PO TID PRN (Reason: pain) 3 Days Qty: 7 0RF amitriptyline 10 mg tablet 10 mg PO BEDTIME PRN (Reason: pain) 30 Days Qty: 30 0RF baclofen 10 mg tablet 10 mg PO TID PRN (Reason: muscle spasticity) 30 Days Qty: 90 0RF Stand Alone Forms: Work/School Release Interventions: ED Discharge Assessment Last Done: 02/10/23 22:56 Discharge Date/Time: 02/10/23 22:56
[2023-02-10 17:25] LABS: MANUAL DIFF FLAG NO
[2023-02-10 17:26] LABS: Basophils Percent Auto 0.3 % (0-2); Eosinophils Absolute Auto 0.1 X10*3/uL (0.0-0.4); Eosinophils Percent Auto 1.3 % (0-4); Hematocrit 37.5 % (37.0-47.0); Imm Gran Abs Auto 0.03 X10*3/uL (0.00-0.03); Imm Gran Pct Auto 0.3 % (0.0-0.4); Lymphocytes Absolute Auto 3.2 X10*3/uL (1.2-4.9); Mean Corpuscular Hemoglobin 26.8 pg (27.0-33.0); Mean Corpuscular Volume 83.7 fL (80.0-98.0); Mean Platelet Volume 10.1 fL (9.4-12.3); Monocytes Absolute Auto 0.6 X10*3/uL (0.1-1.2); Monocytes Percent Auto 5.8 % (2-11); Neutrophils Absolute Auto 7.1 x10*3/uL (2.0-8.3); Neutrophils Percent Auto 63.3 % (45-73); Platelet Count 266 X10*3/uL (160-400); Red Blood Count 4.48 X10*6/uL (4.20-5.50); Red Cell Distribution Width 14.4 % (11.0-16.0); White Blood Count 11.1 X10*3/uL (4.8-10.8)
[2023-02-10 17:27] LABS: Appearance Urine Clear; Color Urine Yellow; Glucose Urine UA Negative (Negative); Leukocyte Esterase Urine Negative (Negative); Nitrite Urine Negative (Negative); Urine Blood Negative (Negative); Urine Ketones Negative (Negative); Urine Protein Negative (Neg-Trace)
[2023-02-10 18:03] LABS: Alanine Aminotransferase 10 U/L (0-31); Albumin Level 4.5 g/dL (3.5-5.0); Alkaline Phosphatase 57 U/L (39-117); Anion Gap 16 (12-20); Aspartate Amino Transferase 13 U/L (5-31); Bilirubin Total 0.2 mg/dL (0.0-1.0); Blood Urea Nitrogen 12 mg/dL (9-16); Calcium 9.9 mg/dL (8.4-10.2); Carbon Dioxide 21 mmol/L (22-29); Chloride 105 mmol/L (96-108); Creatinine Clr Calc Pharmacy 124.9; Estimated Glomerular Filt Rate > 60; Glucose Random 99 mg/dL (60-115); Potassium 4.3 mmol/L (3.3-5.1); Sodium 138 mmol/L (135-145); Total Protein 8.3 g/dL (6.5-8.0)
[2023-02-10 18:04] LABS: HCG Quantitative < 2 mIU/mL
[2023-02-10 18:15] LABS: UPreg QC Valid YES; Urine Pregnancy NEGATIVE (NEGATIVE)
[2023-02-10 19:48] VITALS: BP 111/60; PULSE 75; RESP 18; TEMP 36.1; O2SAT 98
[2023-02-10] MEDS: Ketorolac Tromethamine 30 MG/ML VIAL IVPUSH (21:11)
[2023-02-10] MEDS: 0.9 % Sodium Chloride 1,000 ML 999 ML IV (21:11)
[2023-02-10 21:23] VITALS: BP 99/50; PULSE 67; RESP 14; TEMP 36.2; O2SAT 99
== END 2023-02-10 22:56 | disposition home or self-care (01) ==
PROVIDERS: Physician Assistant; Emergency Provider Emergency Medicine
DX: R10.9 Unspecified abdominal pain (principal); I10 Essential (primary) hypertension; Z87.442 Personal history of urinary calculi; Z79.899 Other long term (current) drug therapy
CPT/HCPCS: 36415; 74176; 80053; 81003; 81025; 84702; 85025; 96374; 99284; J1885

== ENCOUNTER 2023-05-05 15:33 | Outpatient (REF) | payer MEDICAID, SELFPAY ==
[2023-05-05 17:43] LABS: Appearance Urine Cloudy; Color Urine Yellow; Glucose Urine UA Negative (Negative); Leukocyte Esterase Urine Negative (Negative); Nitrite Urine Negative (Negative); PH 7.5 (5.0-9.0); Urine Blood Negative (Negative); Urine Ketones Negative (Negative); Urine Protein Negative (Neg-Trace)
== END 2023-05-05 15:34 | disposition home or self-care (01) ==
LOC: HO.CHCLDS 15:33
PROVIDERS: Visit Provider Internal Medicine
DX: R10.9 Unspecified abdominal pain (principal)
CPT/HCPCS: 81003

== ENCOUNTER 2023-05-11 14:46 | Emergency (ER) | payer MEDICAID, SELFPAY ==
--- NOTE | ~2023-05-11 | CT_ITS ---
EXAMINATION: CT ABDOMEN AND PELVIS WITHOUT CONTRAST CLINICAL INFORMATION: Left flank pain and dysuria COMPARISON: Previous CT of the abdomen and pelvis most recent January 2023 TECHNIQUE: Multidetector volumetric imaging was performed from the superior aspect of the liver through the pubic symphysis. Sagittal and coronal reformatted images were obtained on the technologist's workstation. This CT examination was performed using dose optimization techniques as appropriate, variously including the following: *Automated exposure control *Adjustment of mA and/or kV according to patient size (this includes techniques or standardized protocols for targeted exams where dose is matched to indication/reason for exam; i.e. extremities or head) *Use of iterative reconstruction technique DLP: 734 mGy-cm FINDINGS: LUNG BASES: The visualized lung bases are unremarkable. LIVER, GALLBLADDER, AND BILIARY TREE: The liver is normal in size, shape, and attenuation. No focal hepatic lesion or biliary ductal dilatation is present. The gallbladder is unremarkable with no evidence of radiopaque gallstones, gallbladder wall thickening, or obvious pericholecystic inflammatory changes. PANCREAS: Unremarkable. SPLEEN: Unremarkable. ADRENAL GLANDS: Unremarkable. KIDNEYS AND URETERS: The kidneys are normal in size, shape, and attenuation. Multiple small bilateral renal stones. Increased attenuation again questionable for medullary nephrocalcinosis. No hydronephrosis, ureteral dilatation or ureteral stone. BLADDER: Not optimally distended. GASTROINTESTINAL TRACT: The small and large bowel are unremarkable. The appendix is unremarkable. ABDOMINAL WALL: No significant hernia is appreciated. LYMPH NODES: Normal. VASCULAR: Unremarkable. PELVIC VISCERA: Unremarkable. OSSEOUS STRUCTURES: Unremarkable. CT/CT abdomen pelvis wo IV con IMPRESSION: Multiple small bilateral renal stones. No hydronephrosis, ureteral dilatation or ureteral stone. Fleischner guidelines were followed.
--- NOTE | 2023-05-11 15:08 | ED_ITS ---
HPI - Abdominal Pain General Chief Complaint: Abdominal Pain Stated Complaint: Abd pain - kidney stones Time Seen by Provider: 05/11/23 20:17 Source: patient Mode of arrival: ambulatory Limitations: no limitations History of Present Illness HPI narrative: Patient comes to the emergency room complaining of 2 weeks of left flank pain. Patient states that she has had kidney stones in the past and feels that she has kidney stones again. Patient denies hematuria or dysuria Related Data Previous Rx's Medication Instructions Recorded brkxibrwem-qjztmqacicjuj-nfftxkge 1 tab PO Q6H PRN headache 30 days 07/28/21 50 mg-325 mg-40 mg tablet #20 tabs amitriptyline 10 mg tablet 10 mg PO BEDTIME PRN pain 30 days 08/14/21 #30 tabs baclofen 10 mg tablet 10 mg PO TID PRN muscle spasticity 08/14/21 30 days #90 tabs naproxen 500 mg tablet,delayed 500 mg PO BID PRN pain #20 tabs 05/22/22 release cefuroxime axetil 250 mg tablet 500 mg (2 x 250 mg) PO BID 7 days 11/15/22 #28 tabs phenazopyridine 200 mg tablet 200 mg PO TID PRN pain 3 days #7 11/15/22 (Pyridium) tabs methocarbamol 500 mg tablet 500 mg PO TID PRN muscle spasms 02/10/23 #15 tabs ketorolac 10 mg tablet 10 mg PO BID PRN pain 5 days #7 05/11/23 tabs Allergies Allergy/AdvReac Type Severity Reaction Status Date / Time No Known Allergies Allergy Verified 02/10/23 16:54 Review of Systems Review of Systems Constitutional : No Weight loss, No Fever, No Chills, No Night Sweats, No Fatigue, No Malaise ENT/Mouth : No Hearing loss, No Ear Pain, No Nasal Congestion, No Sinus Pain, No Hoarseness, No sore throat, No Rhinorrhea, No Swallowing Difficulty Eyes: No Eye Pain, No Swelling, No Redness, No Foreign Body, No Discharge, No Vision Changes Cardiovascular : No Chest Pain, No SOB, No Dyspnea on Exertion, No Orthopnea, No Edema, No Palpitations Respiratory : No Cough, No Sputum, No Wheezing, No Smoke Exposure, No Dyspnea Gastrointestinal : No Nausea, No Vomiting, No Diarrhea, No Constipation, No abdominal Pain, No Hematochezia, No Melena Genitourinary : no irregular bleeding, No Dysuria, No Urinary Frequency, No Hematuria, No Urinary Incontinence, No Urgency, complaining of left-sided Flank Pain, No Urinary Flow Changes, No Hesitancy Musculoskeletal : No joint pain, No Myalgias, No Joint Swelling Skin : No Skin Lesions, No rash Neuro : No Weakness, No Numbness, No Paresthesias, No Loss of Consciousness, No Dizziness, No Headache Psych : No Anxiety/Panic, No Depression, No SI/HI/AH/VH, No Social Issues, Heme/Lymph: No Bruising, No Bleeding,No Lymphadenopathy Endocrine : No Polyuria, No Polydipsia, No Temperature Intolerance [facility] Past Medical History Medical History History of anemia Depression Kidney stones Asthma Hypertension Surgical History Tubal ligation status Social History Social History Alcohol intake: current Alcohol intake frequency: does not drink Advance Directives: No Advance Directives Information Provided: No Physical Exam ED Vital Signs: Vital Signs - 24 hr 05/11/23 15:09 05/11/23 20:00 Temperature 98.8 F 98.9 F Pulse Rate 93 88 Respiratory Rate 18 16 Blood Pressure 120/76 143/80 H Pulse Oximetry 100 98 Oxygen Delivery Method Room Air Room Air BMI result Body Mass Index 40.0 Const Other: Appearance: Alert. Oriented X3. No acute distress. Eyes: Pupils equal, round and reactive to light. ENT: Pharynx normal. Neck: Normal inspection. Neck supple. No lymph nodes noted. No crepitus CVS: Normal heart rate and rhythm. Pulses normal. Normal S1 and S2 Respiratory: No respiratory distress. Breath sounds normal. No Wheezing. No rales Abdomen: Soft and nontender. No rigidity. No distention. Skin: Skin warm and dry. Normal skin color. Normal skin turgor. Extremities: No lower extremity edema. No Lacerations. No Rash Neuro: Oriented X 3. No motor deficit. No sensory deficit. Moving all extremities. No slurred speech. CN 2 through 12 grossly intact Psych: calm, cooperative, anxious Course Course Course Narrative: RME: 32 yo F w/PMHx migraines, HTN, Asthma presenting to the ED c/o Left sided/lower abdominal pain, nausea & chills x2 weeks. Also reports dysuria. denies vomiting, fever. admits feels like prior kidney stones labs, UA, CT AP ordered Full HPI, ROS and PE to be performed by primary ED provider. -1943-- labs reassuring. UA negative CT abdomen pelvis wo IV con IMPRESSION: Multiple small bilateral renal stones. No hydronephrosis, ureteral dilatation or ureteral stone. Fleischner guidelines were followed. >1947-- on re-evaluation patient reports she is in continued pain. LUQ Abdominal pain noted. No rash. No evidence of trauma. Discussed results with patient and discussed GI follow-up. Partner states he cannot go to work due to patient being inconsistent pain for the past 3 weeks. Patient needs to wait for full eval by main ED provider. Medical Decision Making Medical Decision Making [facility] Narrative: -my interpretation of labs: Normal hematology/at baseline, normal chemistry, urinalysis negative for UTI, no blood in the urine -My interpretation CT scan: No ureterolithiasis, small stones in the kidney present. -I discussed with the patient that it is possible that she may have had passed a stone. However, there is no ureter swelling, no residual or trace blood in the urine. Is possible the pain may be musculoskeletal. -patient requesting a work note for tomorrow Differential Diagnosis Differential Diagnoses: The differential diagnosis associated with the presentation includes (Renal colic, UTI, pyelonephritis, ureterolithiasis) Admission/Observation Consideration of admission/observation: Escalation of care including admission/observation considered (Considering patient's presentation on arrival, patient was considered) Lab Data [facility] Lab Attestation statement: I reviewed the patient's lab results. 05/11/23 16:21 05/11/23 16:21 Labs: Lab Results 05/11/23 05/11/23 Range/Units 16:21 16:39 WBC 7.7 (4.8-10.8) X10*3/uL RBC 4.28 (4.20-5.50) X10*6/uL Hgb 11.4 L (12.0-16.0) g/dl Hct 35.5 L (37.0-47.0) % MCV 82.9 (80.0-98.0) fL MCH 26.6 L (27.0-33.0) pg MCHC 32.1 (31.0-35.0) g/dl RDW 14.1 (11.0-16.0) % Plt Count 223 (160-400) X10*3/uL MPV 10.5 (9.4-12.3) fL Immature Gran % (Auto) 0.4 (0.0-0.4) % Neut % (Auto) 65.8 (45-73) % Lymph % (Auto) 25.4 (20-40) % [place] % (Auto) 6.2 (2-11) % Eos % (Auto) 1.8 (0-4) % Baso % (Auto) 0.4 (0-2) % Lymph # (Auto) 2.0 (1.2-4.9) X10*3/uL [place] # (Auto) 0.5 (0.1-1.2) X10*3/uL Eos # (Auto) 0.1 (0.0-0.4) X10*3/uL Baso # (Auto) 0.0 (0.0-0.2) X10*3/uL Abs Immat Gran (auto) 0.03 (0.00-0.03) X10*3/uL Absolute Neuts (auto) 5.1 (2.0-8.3) x10*3/uL Absolute Nucleated RBC 0.000 (0.0-0.012) X10*3/uL Nucleated RBC % (auto) 0.0 (0.0-0.2) /100WBC Sodium 137 (135-145) mmol/L Potassium 4.0 (3.3-5.1) mmol/L Chloride 106 (96-108) mmol/L Carbon Dioxide 24 (22-29) mmol/L Anion Gap 11 L (12-20) BUN 9 (9-16) mg/dL Creatinine 0.69 (0.5-1.4) mg/dL Estim Creat Clear Calc 128.9 Estimated GFR > 60 Random Glucose 107 (60-115) mg/dL Calcium 9.6 (8.4-10.2) mg/dL Magnesium 1.8 (1.6-2.6) mg/dL Total Bilirubin 0.1 (0.0-1.0) mg/dL Direct Bilirubin < 0.2 (0.0-0.5) mg/dL AST 26 (5-31) U/L ALT 25 (0-31) U/L Alkaline Phosphatase 48 (39-117) U/L Total Protein 7.8 (6.5-8.0) g/dL Albumin 4.2 (3.5-5.0) g/dL Lipase 8 (8-78) U/L Urine Color Yellow Urine Appearance Cloudy Urine pH 8.0 (5.0-9.0) Ur Specific [place] 1.020 (1.005-1.025) Urine Protein Negative (Neg-Trace) mg/dL Urine Glucose (UA) Negative (Negative) mg/dL Urine Ketones Negative (Negative) mg/dL Urine Blood Negative (Negative) Urine Nitrite Negative (Negative) Ur Leukocyte Esterase Negative (Negative) Urine Test NEGATIVE (NEGATIVE) Independent Interpretation I performed an independent interpretation of an: CT Scan Interpretation: FINDINGS: LUNG BASES: The visualized lung bases are unremarkable. LIVER, GALLBLADDER, AND BILIARY TREE: The liver is normal in size, shape, and attenuation. No focal hepatic lesion or biliary ductal dilatation is present. The gallbladder is unremarkable with no evidence of radiopaque gallstones, gallbladder wall thickening, or obvious pericholecystic inflammatory changes. PANCREAS: Unremarkable. SPLEEN: Unremarkable. ADRENAL GLANDS: Unremarkable. KIDNEYS AND URETERS: The kidneys are normal in size, shape, and attenuation. Multiple small bilateral renal stones. Increased attenuation again questionable for medullary nephrocalcinosis. No hydronephrosis, ureteral dilatation or ureteral stone. BLADDER: Not optimally distended. GASTROINTESTINAL TRACT: The small and large bowel are unremarkable. The appendix is unremarkable. ABDOMINAL WALL: No significant hernia is appreciated. LYMPH NODES: Normal. VASCULAR: Unremarkable. PELVIC VISCERA: Unremarkable. OSSEOUS STRUCTURES: Unremarkable. CT/CT abdomen pelvis wo IV con IMPRESSION: Multiple small bilateral renal stones. No hydronephrosis, ureteral dilatation or ureteral stone. Radiology Impression Discussion of test interpretation with radiology: I have reviewed the radiologist's reading. Critical Care Time Critical Care Time Critical Care Time: Yes Total Critical Care Time: 60 Attestation: I have personally provided critical care time. Time includes review of lab data, radiology results, discussion with consultants, and monitoring for potential decompensation. Intervention performed as documented. Discharge Plan Discharge Clinical Impression: Flank pain Patient Disposition: Home, Self-Care Instructions: Flank Pain (ED) Additional Instructions: Please follow-up with your primary care physician tomorrow. If you have any worsening or new symptoms, please return to the emergency room or call 911 Prescriptions: New ketorolac 10 mg tablet 10 mg PO BID PRN (Reason: pain) 5 Days Qty: 7 0RF Rx Instructions: Do not use this medication with naproxen, Aleve or any NSAIDs No Action aqwavhomtc-cvlpojiuicmym-aezz 50-325-40 mg tablet 1 tab PO Q6H PRN (Reason: headache) 30 Days Qty: 20 0RF naproxen 500 mg tablet,delayed release (DR/EC) 500 mg PO BID PRN (Reason: pain) Qty: 20 0RF cefuroxime axetil 250 mg tablet 500 mg PO BID 7 Days Qty: 28 0RF phenazopyridine [Pyridium] 200 mg tablet 200 mg PO TID PRN (Reason: pain) 3 Days Qty: 7 0RF methocarbamol 500 mg tablet 500 mg PO TID PRN (Reason: muscle spasms) Qty: 15 0RF amitriptyline 10 mg tablet 10 mg PO BEDTIME PRN (Reason: pain) 30 Days Qty: 30 0RF baclofen 10 mg tablet 10 mg PO TID PRN (Reason: muscle spasticity) 30 Days Qty: 90 0RF Stand Alone Forms: Work/School Release
[2023-05-11 15:09] VITALS: BP 120/76; PULSE 93; RESP 18; TEMP 37.1; O2SAT 100; BMI 40.0
[2023-05-11 16:29] LABS: MANUAL DIFF FLAG NO
[2023-05-11 16:31] LABS: Basophils Percent Auto 0.4 % (0-2); Eosinophils Absolute Auto 0.1 X10*3/uL (0.0-0.4); Eosinophils Percent Auto 1.8 % (0-4); Hematocrit 35.5 % (37.0-47.0); Hemoglobin 11.4 g/dl (12.0-16.0); Imm Gran Abs Auto 0.03 X10*3/uL (0.00-0.03); Imm Gran Pct Auto 0.4 % (0.0-0.4); Lymphocytes Percent Auto 25.4 % (20-40); Mean Corpuscular HGB Conc 32.1 g/dl (31.0-35.0); Mean Corpuscular Hemoglobin 26.6 pg (27.0-33.0); Mean Corpuscular Volume 82.9 fL (80.0-98.0); Mean Platelet Volume 10.5 fL (9.4-12.3); Monocytes Absolute Auto 0.5 X10*3/uL (0.1-1.2); Monocytes Percent Auto 6.2 % (2-11); Neutrophils Absolute Auto 5.1 x10*3/uL (2.0-8.3); Neutrophils Percent Auto 65.8 % (45-73); Platelet Count 223 X10*3/uL (160-400); Red Blood Count 4.28 X10*6/uL (4.20-5.50); Red Cell Distribution Width 14.1 % (11.0-16.0); White Blood Count 7.7 X10*3/uL (4.8-10.8)
[2023-05-11 16:48] LABS: Alanine Aminotransferase 25 U/L (0-31); Albumin Level 4.2 g/dL (3.5-5.0); Alkaline Phosphatase 48 U/L (39-117); Anion Gap 11 (12-20); Aspartate Amino Transferase 26 U/L (5-31); Bilirubin Direct < 0.2 mg/dL (0.0-0.5); Bilirubin Total 0.1 mg/dL (0.0-1.0); Blood Urea Nitrogen 9 mg/dL (9-16); Calcium 9.6 mg/dL (8.4-10.2); Carbon Dioxide 24 mmol/L (22-29); Chloride 106 mmol/L (96-108); Creatinine Clr Calc Pharmacy 128.9; Estimated Glomerular Filt Rate > 60; Glucose Random 107 mg/dL (60-115); Lipase 8 U/L (8-78); Magnesium 1.8 mg/dL (1.6-2.6); Sodium 137 mmol/L (135-145); Total Protein 7.8 g/dL (6.5-8.0)
[2023-05-11 16:54] LABS: Appearance Urine Cloudy; Color Urine Yellow; Glucose Urine UA Negative (Negative); Leukocyte Esterase Urine Negative (Negative); Nitrite Urine Negative (Negative); Urine Blood Negative (Negative); Urine Ketones Negative (Negative); Urine Protein Negative (Neg-Trace)
[2023-05-11 16:56] LABS: UPreg QC Valid YES; Urine Pregnancy NEGATIVE (NEGATIVE)
[2023-05-11 20:00] VITALS: BP 143/80; PULSE 88; RESP 16; TEMP 37.2; O2SAT 98
[2023-05-11] MEDS: Ketorolac Tromethamine 60 MG/2 ML VIAL IM (21:44)
== END 2023-05-11 21:55 | disposition home or self-care (01) ==
PROVIDERS: Physician Assistant; Emergency Provider Emergency Medicine; PCP Internal Medicine
DX: R10.9 Unspecified abdominal pain (principal); N20.0 Calculus of kidney; I10 Essential (primary) hypertension; J45.909 Unspecified asthma, uncomplicated
CPT/HCPCS: 36415; 74176; 80048; 80076; 81003; 81025; 83690; 83735; 85025; 96372; 99283; 99284; J1885

== ENCOUNTER 2023-06-24 13:45 | Outpatient (AMB) | payer MEDICAID, SELFPAY ==
--- NOTE | 2023-06-24 14:01 | MHC.OFFVIS ---
Intake Intake Visit Reasons: medullary sponge kidney Intake Note: NEW Patient presents today to established treatment for Medullar Sponge Kidney: Meds- None Allergies to Antibiotic- No Known Allergies Blood Thinner- None Social Media Editor Required: No Accompanied by: Significant Other Allergies No Known Allergies Allergy (Verified 06/24/23 14:02) HPI HPI Comments History of Present Illness Details Liz is a 33-year-old female who is here for evaluation due to kidney stones. She was seen in the ED in [facility] 2022 for left flank pain CT imaging was done which noted small bilateral renal calcifications radiographic changes suggestive of medullary nephrocalcinosis. The patient has history of neck and back pain. I have discussed at length diet modification to decrease risk of forming more kidney stones. I have discussed low oxalate diet and specific foods to avoid including certain green leafy vegetables, chocalate, nuts, tea, beets, rubarb; low sodium, decreased use of animal protein and the importance of hydration drinking up to 2-2.5 liters of fluids and use of adding lemon to water to increase citrate in the diet. Plan metabolic workup, 24 hour urine collection [facility] Medical History History of anemia Depression Kidney stones Asthma Hypertension Surgical History Tubal ligation status Social History Alcohol intake: current Alcohol intake frequency: does not drink Review of Systems Const All systems reviewed & are unremarkable except as noted in HPI and below Reports no additional complaints Eyes Reports no additional complaints ENT Reports no additional complaints Card Reports no additional complaints Resp Reports no additional complaints GI Reports no additional complaints Reports as per HPI Musc Reports no additional complaints Skin/Breast Reports system reviewed and no additional complaints, except as documented Neuro Reports no additional complaints Psych Reports no additional complaints Endo Reports no additional complaints Yakov/Lymph Reports no additional complaints Aller/Immun Reports no additional complaints Physical Exam Const General: cooperative, healthy appearing and no acute distress Orientation/consciousness: patient oriented x3 HEENT Head: Yes normal to inspection, Yes normocephalic and Yes atraumatic Eyes Conjunctivae: conjunctivae normal Neck Neck: Yes normal visual inspection and Yes trachea midline Chest Chest palpation & inspection: normal inspection of the chest Resp Effort & Inspection: normal respiratory effort Cardio Rate: regular rate GI Inspection: Yes normal to inspection Skin General skin exam: no rashes or lesions noted Neuro General: patient oriented x3 Extrem General: No edema Psych Appearance: grossly normal Results AMB Urinalysis, Automated UA Leukoctes 15 Lissette/uL Last Edit by BABS Garcia on 06/24/23 14:15 UA Nitrite Negative Last Edit by Deejay Pinto Gisela on 06/24/23 14:15 UA Urobilinogen 0.2 mg/dL Last Edit by Deejay Pinto Gisela on 06/24/23 14:15 UA Protein 6.0 mg/dL Last Edit by Deejay Pinto Gisela on 06/24/23 14:15 UA pH 6.0 Last Edit by Deejay Pinto [facility] on 06/24/23 14:15 UA Blood 0 Augustine/uL Last Edit by Deejay Pinto Gisela on 06/24/23 14:15 UA Specific [place] 1.025 Last Edit by Deejay Pinto [facility] on 06/24/23 14:15 UA Ketone Negative Last Edit by Deejay Pinto Gisela on 06/24/23 14:15 UA Bilirubin 0 mg/dL Last Edit by Deejay Pinto Gisela on 06/24/23 14:15 UA Glucose 0 mg/dL Last Edit by Deejay Pinto [facility] on 06/24/23 14:15 Results Reviewed Results Reviewed: Laboratory Last Values Urine pH (Auto) 6.0 06/24/23 14:03 Specific [place] (Auto) 1.025 06/24/23 14:03 Urine Protein (Auto) 6.0 mg/dL 06/24/23 14:03 Glucose (UA)(Auto) 0 mg/dL 06/24/23 14:03 Urine Ketones (Auto) Negative 06/24/23 14:03 Urine Blood (Auto) 0 [place]/uL 06/24/23 14:03 Urine Nitrite (Auto) Negative 06/24/23 14:03 Urine Bilirubin (Auto) 0 mg/dL 06/24/23 14:03 Urine Urobilinogen (Auto) 0.2 mg/dL 02/09/24 14:03 Leukocyte Esterase (Auto) 15 Lissette/uL 06/24/23 14:03 Date of Service: 05/11/23 CT ABDOMEN AND PELVIS WITHOUT CONTRAST CLINICAL INFORMATION: Left flank pain and dysuria COMPARISON: Previous CT of the abdomen and pelvis most recent January 2023 TECHNIQUE: Multidetector volumetric imaging was performed from the superior aspect of the liver through the pubic symphysis. Sagittal and coronal reformatted images were obtained on the technologist's workstation. This CT examination was performed using dose optimization techniques as appropriate, variously including the following: *Automated exposure control *Adjustment of mA and/or kV according to patient size (this includes techniques or standardized protocols for targeted exams where dose is matched to indication/reason for exam; i.e. extremities or head) *Use of iterative reconstruction technique DLP: 734 mGy-cm FINDINGS: LUNG BASES: The visualized lung bases are unremarkable. LIVER, GALLBLADDER, AND BILIARY TREE: The liver is normal in size, shape, and attenuation. No focal hepatic lesion or biliary ductal dilatation is present. The gallbladder is unremarkable with no evidence of radiopaque gallstones, gallbladder wall thickening, or obvious pericholecystic inflammatory changes. PANCREAS: Unremarkable. SPLEEN: Unremarkable. ADRENAL GLANDS: Unremarkable. KIDNEYS AND URETERS: The kidneys are normal in size, shape, and attenuation. Multiple small bilateral renal stones. Increased attenuation again questionable for medullary nephrocalcinosis. No hydronephrosis, ureteral dilatation or ureteral stone. BLADDER: Not optimally distended. GASTROINTESTINAL TRACT: The small and large bowel are unremarkable. The appendix is unremarkable. ABDOMINAL WALL: No significant hernia is appreciated. LYMPH NODES: Normal. VASCULAR: Unremarkable. PELVIC VISCERA: Unremarkable. OSSEOUS STRUCTURES: Unremarkable. IMPRESSION: Multiple small bilateral renal stones. No hydronephrosis, ureteral dilatation or ureteral stone. Assessment & Plan Assessment & Plan (1) Bilateral kidney stones: Code(s): N20.0 - Calculus of kidney Plan metabolic workup, 24 hour urine collection Orders: Orders AMB Urinalysis Automated 06/24/23 Z13.9 - Encounter for screening, unspecified Patient Instructions: The patient had an opportunity to ask questions regarding treatment plan. All questions were answered. Imaging, Laboratory studies and physical exam results were discussed and reviewed in detail. No major barriers to understanding were identified. The patient expressed understanding and agreement with the above treatment plan. The patient is aware they should contact our office by phone for worsening of their current condition or the appearance of new symptoms. Compliance is encouraged with any medications and followup testing that is ordered. It is a privilege to be allowed the opportunity to participate in the urologic care of your patient. If you have any questions or concerns regarding treatment for the above conditions please do not hesitate to contact me. The office telephone contact is [phone]. This note is constructed in part using voice recognition software. While every effort has been made to ensure accuracy blade boner errors may have been included. Yours sincerely, Delmer Daniels MD Coding Level of Care Code New Pt Level 3 (67456) Diagnoses Bilateral kidney stones N20.0
== END 2023-06-24 15:05 | disposition home or self-care (01) ==
PROVIDERS: PCP Internal Medicine; Visit Provider Urology
DX: N20.0 Calculus of kidney (principal)
CPT/HCPCS: 99203

== ENCOUNTER → 2023-06-24 13:45 | Outpatient (BNVA) | payer MEDICAID, SELFPAY | PROVIDERS: PCP Internal Medicine; Visit Provider Urology | DX: N20.0 Calculus of kidney (principal) | CPT/HCPCS: 81003; 99202 ==

== ENCOUNTER 2023-07-05 10:00 | Outpatient (REF) | payer MEDICAID, SELFPAY | END 2023-07-05 10:01 | disposition home or self-care (01) | LOC: HO.HHCLNP 10:00 | PROVIDERS: Visit Provider Nurse Practitioner Family | DX: Z13.89 Encounter for screening for other disorder (principal) ==

== ENCOUNTER 2024-06-12 14:30 | Outpatient (REF) | payer MEDICAID, SELFPAY ==
--- OUTSIDE RECORDS SUMMARY | 2024-06-12 15:24 | XMS_ITS | Encounter Summary ---
Author Organization [employer] Address [address] [place] [address] 7 [place] [address] Care Team Providers Care Senior Etl Developer Name Role Phone Timur Ward MD Primary Care Prov ider Encounter Details Date Type Department Care Team (Late st Contact Info) Description 06/07/2024 1:30 PM EST Telemedicine [facility] [address] [place], [place] [phone] Timur Ward MD [address] [place] [address] Class 2 severe obesity due to excess calories with serious comorbidity and body mass index (BMI) of 38.0 to 38.9 in adult (CMS/HCC) (Primary Dx); Bipolar affective disorder, remission status unspecified ([facility]); Dietary counseling; Exercise counseling Social History Tobacco Use Types Packs/Day Years Used Date Smoking Tobacco: Every Day Cigarettes Passive Smoke Exposure: Never Smokeless Tobacco: Never Alcohol Use Standard Drinks/Week Comments Never 0 (1 standard drink = 0.6 oz pur e alcohol) Depression Answer Date Recorded Patient Health Questionnaire-9 Score 11 10/27/2023 Patient Health Questionnaire-9 Score 11 10/27/2023 Last PHQ-9: Questionnaire Data Not on file 0 10/27/2023 Housing Stability Answer Date Recorded What is your housing situation today? I have housing today, but I am worried about losing housing in the future 11/16/[address] you li ve. Do you have problems with any of the following? None of the above 11/16/2023 Food Insecurity Answer Date Recorded Within the past 12 months, y ou worried that your food would run out before you got money to buy more: Never True 11/16/2023 Within the past 12 months,th e food you bought just didn't last and you didn't have enough money to get more: Never True 07/2023 Transportation Answer Date Recorded In the past 12 months, has l ack of transportation kept you from medical appts, meetings, work or from getting things needed for daily living? No 11/16/2023 Utilities Answer Date Recorded In the past 12 months, has t he [employer], gas, oil or water Measurabl threatened to shut off services in your home? Yes 11/16/2023 Depression Answer Date Recorded Patient Health Questionnaire-2 Score 4 10/27/2023 Internet Access Answer Date Recorded Internet Access Q1 Yes 01/16/2024 Internet Access Q2 Not on file 01/16/2024 Comments No Sex and Gender Information Value Date Recorded Sex Assigned at Female 03/15/2022 10:15 AM EDT Legal Sex Female 10:15 AM EDT Gender Identity Female 03/15/2022 10:15 AM EDT Sexual Orientation Choose not to disclose 2021 10:15 AM EDT documented as of this encounter Progress Notes * Timur Kumar MD - 06/07/2024 1:30 PM EST Subjective Patient ID: Liz Mercado is a 33 y.o. female who presents for No chief complaint on file.. HPI Patient was scheduled for a televisit to discuss weight Review of Systems Constitutional: Negative for chills, fatigue and fever. Respiratory: Negative for cough and shortness of breath. Cardiovascular: Negative for chest pain and palpitations. Musculoskeletal: Negative for arthralgias and joint swelling. Objective Physical Exam Neurological: General: No focal deficit present. Mental Status: She is oriented to person, place, and time. Psychiatric: Mood and Affect: Mood normal. Behavior: Behavior normal. Assessment/Plan Problem List Items Addressed This Visit Bipolar disorder ([facility]) Class 2 severe obesity due to excess calories with serious comorbidity and body mass index (BMI) of38.0 to 38.9 in adult ([facility]) - Primary Patient has been trying to watch her diet, has been exercising, but still has not lost weight, she has hx of htn, back/knee pain, she will benefit from losing weight, will start phentermine, continueexercise, keep 1500 to 2000 daily calorie intake, will follow up in 6 weeks Other Visit Diagnoses Dietary counseling Exercise counseling documented in this encounter Miscellaneous Notes * Assessment & Plan Note - Timur Kumar MD - 06/07/2024 1:47 PM ESTAssociated Problem(s): Class 2 severe obesity due to excess calories with serious comorbidity and body mass index (BMI) of 38.0 to 38.9 in adult ([facility]) Patient has been trying to watch her diet, has been exercising, but still has not lost weight, she has hx of htn, back/knee pain, she will benefit from losing weight, will start phentermine, continueexercise, keep 1500 to 2000 daily calorie intake, will follow up in 6 weeks documented in this encounter Plan of Treatment Upcoming Encounters Date Type Department Care Team (Late st Contact Info) Description 07/30/2024 1:30 PM EDT Office Visit [facility] [address] [place] [address] Timur Ward MD [address] [place] [address] documented as of this encounter Visit Diagnoses Diagnosis Class 2 severe obesity due to excess calories with serious comorbidity and body mass index (BMI) of 38.0 to 38.9 in adult ([facility])- Primary Bipolar affective disorder, remission status unspecified ([facility]) Dietary counseling Dietary surveillance and counseling Exercise counseling documented in this encounter Additional Health Concerns Assessment Noted Time PHQ-9 Depression Total Score: 11 024 4:03 PM EDT documented as of this encounter Care Teams Senior Etl Developer Relationship Specialty Start Date End Date Timur Ward MD [address] [place] [address] PCP - General Internal Medicine 10/09/19 documented as of this encounter
--- OUTSIDE RECORDS SUMMARY | 2024-06-12 15:24 | XMS_ITS | Clinical Summary ---
Author Organization [facility] Address [address] [place] [address] Care Team Providers Care Entry Analyst Name Role Phone Unavailable Primary Care Provider Unavailabl e Source Comments PLEASE NOTE, if this patient is a minor, it may be UNLAWFUL to discuss sensitive information that is contained in these records (such as FAMILY PLANNING, MENTAL HEALTH or SUBSTANCE ABUSE) with the minor patient's parent or other person without the patient's specific authorization.[facility] Medications ARIPiprazole (ABILIFY) 15 mg tablet Take 15 mg by mouth once daily 08/08/2023 Active famotidine (PEPCID) 20 mg tablet Take 20 mg by mouth 2 (two) times daily 01/20/2024 Active lisinopriL 40 mg tablet Take 40 mg by mouth every morning Active omeprazole (PRILOSEC) [address] capsule Take 20 mg by mouth once daily 01/20/2024 Active topiramate (TOPAMAX) 50 mg tablet Take 150 mg by mouth 2 (two) times daily 10/27/2023 Active lamoTRIgine (LAMICTAL) 25 mg tabletIndicatio ns:Bipolar affective disorder, currently depressed, moderate (HCC-CMS) Take 1 Tablet by mouth once daily for 15 days 15 Tablet 03/15/2024 Active QUEtiapine (SEROQUEL) 50 mg tabletIndicatio ns:Bipolar affective disorder, currently depressed, moderate (HCC-CMS) Take 1 Tablet by mouth nightly at bedtime for 16 days 16 Tablet 03/15/2024 Active Active Problems Problem Noted Date Diagnosed Date Hospital discharge follow-up 11/24/2023 Overview (03/15/2024): Last Assessment & Plan: Patient was admitted from 11/06-11/13, she underwent cholecystectomy and appendectomy, she has no reported fever/chills, nausea/vomiting, surgical scars are healing well, no sign of infection Follow up with surgery Hx of renal calculi 02/14/2023 Overview (03/15/2024): Last Assessment & Plan: Following urology Left flank pain 02/14/2023 Overview (03/15/2024): Last Assessment & Plan: U/s showed bilateral nephrolitiasis, largest on the right side, no blood/infection on last u/a, she has pending urology follow up on jun. Class 2 severe obesity due t o excess calories with serious comorbidity and body mass index (BMI) of 38.0 to 38.9 in adult ([facility]) 01/25/2023 Overview (03/15/2024): Last Assessment & Plan: Will start on phentermine, side effects discussed, Bipolar affective disorder, currently depressed, moderate ([facility]) 07/19/2022 Overview (03/15/2024): Patient presents with significant mood symptoms complicated by grief and trauma. Current medication regimen ineffective for managing symptoms. Decision to discontinue ineffective medications (aripiprazole) and initiate mood stabilizer (lamotrigine) with careful titration. Increase in quetiapine for sleep management. Close monitoring needed due to history of self-harm and ongoing depression. Assessment & Plan (03/15/2024 6:05 PM EDT): A: mood Irritability, Poor sleep, Social isolation, Crying spells Loss of interest, Poor concentration, Low energy, Weight gain Poor appetite P: Start lamotrigine 25mg daily for 2 weeks Increase quetiapine to 50mg at bedtime Discontinue aripiprazole Follow up in 2 weeks Patient educated about: Lamotrigine titration schedule Need to monitor SJS discontinue medication and seek emergency care if rash develops Importance of medication compliance Follow-up schedule PTSD (post-traumatic stress disorder) 07/19/2022 Overview (03/15/2024): Last Assessment & Plan: Also Bipolar Disorder. Presented with visual hallucinations, flashbacks, nightmares, panic attacks. Trauma history, including probable childhood trauma. Mood swings. Compulsive nocturnal eating with weight gain. Unfortunately she has been out of medications for a month, never started the new Seroquel 25 mg. Hallucinations still controlled but feeling very irritable. Not sleeping well. Will now start seroquel 25 mg at bedtime, cautioned about possible daytime sedation. Continue Topiramate 150 mg BID. Watch for irritability or sleep disruption from the Phentermine and let prescriber know. Since this provider will be retiring, patient is referred to new [facility] psychiatric prescriber. Pt is aware that appointments will be via televisit and that provider willnot be an employee of [facility]. She gives permission to share PHI. Any issues or concerns, call the health center. All her questions were answered and I have wished her well. She is also urged to call to check on status of counseling referral. She agrees with the plan. Assessment & Plan (03/15/2024 6:04 PM EDT): Continue Therapy Bilateral arm numbness and tingling while sleepi ng 06/23/2022 Overview (03/15/2024): Last Assessment & Plan: Patient refers having tingling sensation on bilateral upper arms from her elbow down to her hands, will order emg Primary hypertension 06/23/2022 Overview (03/15/2024): Last Assessment & Plan: Controlled, keep low sodium diet and exercise as tolerated, no changes will be made Smoker 06/23/2022 Overview (03/15/2024): Last Assessment & Plan: Will order nicotine patches, dicussed benefits of smoking cessation Snoring 06/23/2022 Overview (03/15/2024): Last Assessment & Plan: Will refer for sleep study test Resolved Problems Problem Noted Date Diagnosed Date Resolved Date UTI (urinary tract infection) 02/10/2023 04/16/2024 Encounters Date Type Department Care Team Description 03/15/2024 1:00 PM EDT Behavioral Health Visit [facility] [address] [place] [id number] Isa Shen APRN Bipolar affective disorder, currently depressed, moderate ([facility]) (Primary Dx); PTSD (post-traumatic stress disorder) from Last 3 Months Immunizations Name Administration Dates Next Due DTAP 08/14/1998, 3,10/14/1992,1990 Flu, Multi Dose 0.5 ML 06/23/2022,03/15/2016 Flu, Preservative Free 01/25/2023,04/03/2018 HEP B, PED/ADOL 01/08/2003,08/02/2002,07/15/1995 Hib (HbOC) 08/14/1992,1990 INFLUENZA, SEASONAL, INJECTABLE 07/10/2015,02/09,03/19/2011 IPV 07/15/1995 MMR (MMR II/Priorix) 07/15/1995,10/14/1992 OPV, Trivalent 04/15/1993, 3,1990,1990 TDAP 04/03/2018,07/10/2015,02/10/2012 Td(adult),2 Lf tetanus toxoid,preservative free 08/02/2002 Family History Medical History Relation Name Comments Diabetes Father Hypertension Father Relation Name Status Comments Daughter 2 daughters, He alty Father Alive Mother Son 2 sons healthy Social History Tobacco Use Types Packs/Day Years Used Date Smoking Tobacco: Every Day Cigarettes 1 16.1 Started: 2008 Smokeless Tobacco: Never Tobacco Cessation:Ready to Q uit: No; Counseling Given: Yes Alcohol Use Standard Drinks/Week Comments Never 0 (1 standard drink = 0.6 oz pur e alcohol) Social Connections Answer Date Recorded Connectedness 0 01/31/2024 Financial Resource Strain Answer Date R ecorded Financial Resource Strain 0 2023 Stress Answer Date Recorded Stress 0 12/27/2023 Physical Activity Answer Date Recorded Physical Activity 0 12/27/2023 Food Insecurity Answer Date Recorded Food 0 02/09/2024 Transportation Needs Answer Date Record ed Transportation 0 12/27/2023 Housing Stability Answer Date Recorded Housing 0 12/27/2023 Safety and Environment Answer Date Quang rded Safety 0 12/27/2023 Utilities Answer Date Recorded Utilities 0 12/27/2023 Employment Answer Date Recorded Stress 0 01/31/2024 Comments Unknown Sex and Gender Information Value Date Recorded Sex Assigned at Female 12/27/2023 7:26 AM PDT Legal Sex Female 7:26 AM PDT Gender Identity Female 12/27/2023 7:26 AM PDT Sexual Orientation Not on file Plan of Treatment Health Maintenance Due Date Last Done Comments Depression Monitoring 1990 HPV Screening 1990 Pap + HPV 1990 Relationship Safety Screening/Counseling 2005 Imm-Pneumococcal (1 of 2 - PCV) 2009 Cervical Cancer Screening 2011 Pap Smear 2011 Diabetes Screening 12/04/2022 12/04/2021 Lipid Screening 06/23/2023 06/23/2022 [id number] ( season) 2024 Imm-Influenza (#1) 2024 01/25/2023, 0 06/23/2022, 04/03/2018, Additional history exists Alcohol and Drug Screen 05/16/2024 Tobacco Cessation Counseling (#1) 03/15/2025 Imm-DTaP/Tdap/Td (8 - Td or Tdap) 04/03/2028 04/03/2018, 07/10/2015, 02/10/2012, Additional history exists Imm-Hepatitis B Completed 01/08/2003, 07/15, 07/15/1995 HIV Screening Completed 08/25/2020 Hepatitis C Screening Completed 01/25/2023 Cervical Ablation/Cold-Knife Conization Discontinued Cervical Cryotherapy Discontinued Colposcopy Discontinued Endometrial Biopsy Discontinued Excision/Leep Discontinued HPV Genotyping Discontinued Vaginal Pap Discontinued Vulvoscopy Discontinued Insurance [place] MEDICAID [employer] [employer]
--- OUTSIDE RECORDS SUMMARY | 2024-06-12 15:24 | XMS_ITS | Encounter Summary ---
Author Organization [employer] Address [address] [place] [address] [address] [place] [address] Care Team Providers Care Insole Tape Stitcher Uco Name Role Phone Timur Ward MD Primary Care Prov ider Reason for Visit * Reason Onset Date Comments Medication Question 06/05/2024 Encounter Details Date Type Department Care Team ([facility] st Contact Info) Description 06/05/2024 Telephone [facility] MED & PEDS [address] [place] [address] Timur Ward MD [address] [place] [address] Medication Question Social History Tobacco Use Types Packs/Day Years [...] the past 12 months, has t he electric, gas, oil or water company threatened to shut off services in your [...] AM EDT documented as of this encounter Miscellaneous Notes * Telephone Encounter - Lyndsey Canales RN - 06/07/2024 11:29 AM EST TC to pt to schedule to discuss weight loss medication. Pt scheduled for telehealth visit at 1:30 pm with PCP on 06/07/24. Pt agrees to plan. * Telephone Encounter - Milady Armas - 06/05/2024 1:53 PM EST Tc from pt requesting to see if pcp can prescribe a new medication for weight lost. States the lastone prescribed does not seem to be working. documented in this encounter Plan of Treatment Upcoming Encounters Date Type Department Care Team (Late st Contact Info) Description 07/30/2024 1:30 PM EDT Office Visit [facility] MED [facility] PEDS [address] [place], [place] [phone] Timur Ward MD [address] [place] [address] documented as of this encounter Visit Diagnoses Not on filedocumented in this encounter Additional Health Concerns Assessment Noted Time PHQ-9 Depression Total Score: 11 024 4:03 PM EDT documented as of this encounter Care Teams Insole Tape Stitcher Uco Relationship Specialty Start Date End Date Timur Ward MD [address] [place] [id number] PCP - General Internal Medicine 10/09/19 documented as of this encounter
--- OUTSIDE RECORDS SUMMARY | 2024-06-12 15:24 | XMS_ITS | Encounter Summary ---
Author Organization [employer] Address [address] [place] [address] [address] [place] [address] Care Team Providers Care Acute Coordinator Name Role Phone Timur Ward MD Primary Care Prov ider Reason for Visit * Reason Comments Med Change Request Encounter Details Date Type Department Care Team ([facility] Contact Info) Description 06/23/2022 Refill [facility] P[facility]S [address] [place] [address] Timur Ward MD [address] [place] [address] Primary hypertension Social History Tobacco Use Types Packs/Day Years Used Date Smoking Tobacco: Every Day Cigarettes Passive Smoke Exposure: Never Smokeless Tobacco: Never Alcohol Use Standard Drinks/Week Comments Never 0 (1 standard drink = 0.6 oz pur e alcohol) Comments No Sex and Gender Information Value Date Recorded Sex Assigned at Female 03/15/2022 10:15 AM EDT Legal Sex Female 10:15 AM EDT Gender Identity Female 03/15/2022 10:15 AM EDT Sexual Orientation Choose not to disclose 2021 10:15 AM EDT COVID-19 Exposure Response Date Recorded In the last 10 days, have yo u been in contact with someone who was confirmed or suspected to have Coronavirus/COVID-19? No / Unsure 06/23/2022 10:13 AM EST documented as of this encounter Plan of Treatment Upcoming Encounters Date Type Department Care Team ([facility] Contact Info) Description 07/30/2024 1:30 PM EDT Office Visit [facility]S [address] [place] [address] Timur Ward MD [address] [place] [address] documented as of this encounter Visit Diagnoses Diagnosis Primary hypertension Unspecified essential hypertension documented in this encounter Care Teams Acute Coordinator Relationship Specialty Start Date End Date Timur Ward MD [address] [place] [address] PCP - General Internal Medicine 10/09/19 documented as of this encounter
--- OUTSIDE RECORDS SUMMARY | 2024-06-12 15:24 | XMS_ITS | Encounter Summary ---
Author Organization [employer] Address [address] [facility] 7 [place] [address] Care Team Providers Care Completion Manager Name Role Phone Timur Ward MD Primary Care Prov ider Reason for Visit * Reason Onset Date Comments Nurse Triage 11/29/2022 Encounter Details Date Type Department Care Team ([facility] st Contact Info) Description 11/29/2022 Telephone [facility] [address] [place] [address] Timur Ward MD [address] [place] [id number] Nurse Triage Social History Tobacco Use Types Packs/Day Years [...] suspected to have Coronavirus/COVID-19? No / Unsure 11/09/2022 2:34 PM EDT documented as of this encounter Miscellaneous Notes * Telephone Encounter - July Mcgraw RN - 11/29/2022 2:51 PM EDT Triage call Pt last seen in [facility] 11/15 and UTI dx received. Pt did finish antibiotics ordered at that time. Pt reports continued Urinary symptoms of burning with urination , frequency. Pt also reports left sided flank pain and reports hx of kidney stones. Neg for fever or blood in the urine. Pt is drinking adequate liquids and cranberry juice. Pt reports pyridium didn't help symptoms. Advised to come to [facility] today for urine to be checked and Pt agreed. Hours given, open till 8pm today. Home carereviewed. Protocol Used: Urinary Tract Infection on Antibiotic Follow-up Call - Female (Adult) Protocol-Based Disposition: See in Office or Video Visit Today or Tomorrow Positive Triage Question: * Patient wants to be seen * All higher-acuity triage questions were negative Care Advice Discussed: * Reasons To Call Back - Fever lasts over 24 hours on antibiotics - Pain does not improve by day 4 on antibiotics - Urine symptoms do not improve by day 4 on antibiotics - You become worse. * Telephone Encounter - Love Taveras - 11/29/2022 2:27 PM EDT Symptom: Urination Pain Outcome: Schedule an urgent appointment (within 1 hour) or talk to a nurse or provider soon Reason: Severe pain now The caller accepted this outcome Please contact at [phone] [place]i documented in this encounter Plan of Treatment Upcoming Encounters Date Type Department Care Team ([facility] st Contact Info) Description 07/30/2024 1:30 PM EDT Office Visit [facility] [address] [place] [address] Timur Ward MD [address] [place] [address] documented as of this encounter Visit Diagnoses Not on filedocumented in this encounter Additional Health Concerns Assessment Noted Time PHQ-9 Depression Total Score: 13 023 9:45 AM EDT documented as of this encounter Care Teams Completion Manager Relationship Specialty Start Date End Date Timur Ward MD [address] [place] [address] PCP - General Internal Medicine 10/09/19 documented as of this encounter
--- OUTSIDE RECORDS SUMMARY | 2024-06-12 15:24 | XMS_ITS | Clinical Summary ---
Author Organization [employer] Address [address] [facility] [address] [place] [address] Care Team Providers Care Medical I D Sales Name Role Phone Timur Ward MD Primary Care Prov ider Allergies No known active allergies Medications * This document contains information received from the source organization and may not represent a complete record from that organization. nicotine (Nicoderm CQ) 21 MG/24HR patchIndications: Primary hypertension,Smok er Place 1 patch on the skin 1 (one) time each day at the same time. 30 patch 1 3 Active lisinopril 40 MG tabletIndications :Primary hypertension Take 1 tablet (40 mg) by mouth in the morning. 90 tablet 3 3 Active phentermine 15 MG capsule Take 1 capsule (15 mg) by mouth before breakfast. 30 capsule 4 Active QUEtiapine (SEROquel) 25 MG tablet Take 1 tablet (25 mg) by mouth at bedtime. 90 tablet 3 4 Active topiramate (Topamax) 50 MG tablet Take 150 mg by mouth 2 times daily. 180 tablet 3 4 Active phentermine 15 MG capsule Take 1 capsule (15 mg) by mouth before breakfast. 30 capsule 5 07/07/19 25 Active aluminum-magnesiu m hydroxide-simethi cone (Maalox Max) 400-400-40 MG/5ML suspension Take 10 mL by mouth every 6 (six) hours if needed (abdominal pain) for up to 10 days. 355 mL 5 06/22/19 25 Active Hospital, Clinic, or Other Facility Administered Medication Ordered Dose Route Frequency Start Date End Date Status ibuprofen tablet 400 mgIndications:Chronic migraine without aura without status migrainosus, not intractable 400 mg PO Once 12/16/2022 Active Active Problems Problem Noted Date Diagnosed Date Hospital discharge follow-up 11/24/2023 Assessment & Plan (11/24/2023 1:09 PM EDT): Patient was admitted from 11/06-11/13, she underwent cholecystectomy and appendectomy, she has no reported fever/chills, nausea/vomiting, surgical scars are healing well, no sign of infection Follow up with surgery Left flank pain 02/14/2023 Assessment & Plan (05/24/2023 6:07 PM EST): U/s showed bilateral nephrolitiasis, largest on the right side, no blood/infection on last u/a, she has pending urology follow up on jun. Assessment & Plan (05/04/2023 12:32 PM EST): Patient with persistent flank pain for over 2 weeks, denied hematuria, refers having tactile fever/chills, no dysuria. Will order a u/a and will send a renal ultrasound, appointment with urology placed due to hx of nephrolithiasis Assessment & Plan (02/14/2023 12:07 PM EDT): Patient visited er with bilateral flank pain, ct scan and blood test were done and was discharged home. Patient continue with left flank pain, no fever/chills, no hematuria. Will order a u/a, pain most likely MSK related, will also send cyclobenzaprine Hx of renal calculi 02/14/2023 Assessment & Plan (07/07/2023 2:59 PM EST): Following urology Assessment & Plan (02/14/2023 12:07 PM EDT): Will refer to urology, hx of multiple renal stone passage UTI (urinary tract infection) 02/10/2023 Class 2 severe obesity due t o excess calories with serious comorbidity and body mass index (BMI) of 38.0 to 38.9 in adult 01/25/2023 Assessment & Plan (06/07/2024 1:47 PM EST): Patient has been trying to watch her diet, has been exercising, but still has not lost weight, she has hx of htn, back/knee pain, she will benefit from losing weight, will start phentermine, continue exercise, keep 1500 to 2000 daily calorie intake, will follow up in 6 weeks Assessment & Plan (01/25/2023 1:56 PM EDT): Will start on phentermine, side effects discussed, Bipolar disorder 07/19/2022 PTSD (post-traumatic stress disorder) 07/19/2022 Assessment & Plan (10/27/2023 5:02 PM EDT): Also Bipolar Disorder. Presented with visual hallucinations, [...] be retiring, patient is referred to new [facility] psychiatric prescriber. Pt is aware that appointments will be via televisit and that provider willnot be an employee of [facility]. She gives permission to share PHI. Any issues or concerns, call the health center. All her questions were answered and I have wished her well. She is also urged to call to check on status of counseling referral. She agrees with the plan. Assessment & Plan (09/20/2023 10:11 AM EDT): Also Bipolar Disorder. Presented with visual hallucinations, flashbacks, nightmares, panic attacks. Trauma history, including probable childhood trauma. Mood swings. Compulsive nocturnal eating with weight gain. Hallucinations controlled. Mood swings persist, but she is showing improved insight and awareness. Not sleeping well. Will stop Abilify 15 mg daily. Will start seroquel 25 mg at bedtime, cautioned about possible daytime sedation. Continue Topiramate 150 mg BID. Prescriptions sent to [facility] pharmacy for home delivery. Watch for irritability or sleep disruption from the Phentermine and let prescriber know. This provider will be retiring, but we will F/U in 1 month meanwhile. Also, urged to call to check on status of counseling referral. She agrees with the plan. Assessment & Plan (08/08/2023 11:21 AM EDT): Presented with visual hallucinations, flashbacks, nightmares, panic attacks. Trauma history, including probable childhood trauma. Mood swings. Compulsive nocturnal eating with weight gain. Hallucinations controlled. Mood swings persist, but she is showing improved insight and awareness. Will increase to Abilify 15 mg daily. Will also increase to Topiramate 150 mg BID. On 06/09/2023 informed patient that I would be retiring, so plan to meet several times and attempt to help her stabilize prior to transfer of care. She was referred for counseling, and we have given her the phone number of the agency so she can call to F/U on referral. F/U with me in 6 weeks. She agrees with the plan. Assessment & Plan (07/05/2023 11:46 AM EST): Presented with visual hallucinations, flashbacks, nightmares, panic attacks. Trauma history, including probable childhood trauma. Mood swings. Compulsive nocturnal eating with weight gain. Although she subjectively reports feeling the same, no longer having SI or visual hallucinations. Will now increase to Abilify 10 mg daily. Will also increase to Topiramate 100 mg BID. On 06/09/2023 informed patient that I would be retiring, so plan to meet several times and attempt to help her stabilize prior to transfer of care. She was referred for counseling, and I have given her the phone number of the agency so she can call to F/U on referral. F/U with me in 1 month. She agrees with the plan. Assessment & Plan (06/09/2023 9:32 AM EST): Presented with visual hallucinations, flashbacks, nightmares, panic attacks. Trauma history, including probable childhood trauma. Mood swings. Compulsive nocturnal eating with weight gain. Seems to have had small positive results from Abilify 5 mg, and will restart that now, expect to increase. Will also continue Topiramate 50 mg BID, will also likely need dose increase. Will refer again for counseling. Today 06/09/2023 informed patient that I would be retiring, so plan to meet several times and attempt to help her stabilize prior to transfer of care. F/U with me in 3 weeks. She agrees with the plan. Assessment & Plan (09/07/2022 10:34 AM EDT): Note from last visit 08/09/2022: with flashbacks, nightmares, panic attacks. Trauma history, including probable childhood trauma. Mood swings. Presented with visual hallucinations, now improved. Compulsive nocturnal eating with weight gain. Tolerating new Topiramate, will continue Topiramate 50 mg at bedtime x 2 weeks then increase to Topiramate 50 mg BID. Continue the Abilify 5 mg for now. We will send her the list of area counseling agencies and she can call for intake. F/U wt me in 3-4 weeks. She agrees with the plan. Today 09/07/2022: no change in plan, will reschedule appointment [facility]. She agrees with the plan. Assessment & Plan (08/09/2022 1:19 PM EDT): with flashbacks, nightmares, panic attacks. Trauma history, including probable childhood trauma. Mood swings. Presented with visual hallucinations, now improved. Compulsive nocturnal eating with weight gain. Tolerating new Topiramate, will continue Topiramate 50 mg at bedtime x 2 weeks then increase to Topiramate 50 mg BID. Continue the Abilify 5 mg for now. We will send her the list of area counseling agencies and she can call for intake. F/U wt me in 3-4 weeks. She agrees with the plan. Assessment & Plan (07/19/2022 11:15 AM EST): with flashbacks, nightmares, panic attacks. Trauma history, including probable childhood trauma. Mood swings. Presented with visual hallucinations, now improved. Compulsive nocturnal eating with weight gain. Will start Topiramate 25 mg 1 tab at bedtime x 2 weeks then 2 tabs at bedtime. Although she doesn't feel the Abilify 5 mg is helping, I have asked her to continue for now. F/U wth me in 2-3 weeks. She agrees with the plan. Primary hypertension 06/23/2022 Assessment & Plan (11/24/2023 1:10 PM EDT): Controlled, keep low sodium diet and exercise as tolerated, no changes will be made Assessment & Plan (07/07/2023 2:59 PM EST): Controlled, continue lisinopril 40mg, continue low sodium diet and exercise as tolerated, follow up in 3 months target <140/90 Assessment & Plan (05/04/2023 12:33 PM EST): Not controlled, will increase lisinopril to 40mg, reinforced low sodium diet, target <140/90 Assessment & Plan (01/25/2023 1:55 PM EDT): Controlled, on lisinopril, reinforced low sodium diet and exercise as tolerated, keep bp monitoring target <140/90 Assessment & Plan (06/23/2022 12:54 PM EST): Not at target will increase lisinopril to 30mg, follow up in 1 month, reinforced low sodium diet and exercise as tolerated, keep bp log Snoring 06/23/2022 Assessment & Plan (06/23/2022 12:54 PM EST): Will refer for sleep study test Smoker 06/23/2022 Assessment & Plan (06/23/2022 12:55 PM EST): Will order nicotine patches, dicussed benefits of smoking cessation Bilateral arm numbness and tingling while sleepi ng 06/23/2022 Assessment & Plan (06/23/2022 12:54 PM EST): Patient refers having tingling sensation on bilateral upper arms from her elbow down to her hands, will order emg Encounters Date Type Department Care Team Description 06/12/2024 1:40 PM EST Office Visit [facility] [address] [place] [address] Pain of upper abdomen (Primary Dx); UTI symptoms 06/12/2024 Travel 06/12/2024 Telephone [facility] [address] [place] [address] Timur Ward MD Nurse Triage 06/07/2024 1:30 PM EST Telemedicine [facility] [address] [place] [address] Timur Ward MD Class 2 severe obesity due to excess calories with serious comorbidity and body mass index (BMI) of 38.0 to 38.9 in adult ([facility]) (Primary Dx); Bipolar affective disorder, remission status unspecified ([facility]); Dietary counseling; Exercise counseling 06/07/2024 Travel 06/05/2024 Telephone [facility] [address] [place] [address] Timur Ward MD Medication Question 03/13/2024 Telephone [facility] [address] [place] [phone] Adi Sy, RN Care Management (C3CM- f/u call) from Last 3 Months Immunizations Name Administration Dates Next Due DTaP 08/14/1998, 3,10/14/1992,1990 Hep B, Adolescent or Pediatric 01/08/2003,2002,07/15/1995 Hib (HbOC) 08/14/1992,1990 IPV 07/15/1995 Influenza injectable quadriv alent IIV4 with preservative 06/23/2022,03/15/2016 Influenza injectable quadriv alent preservative free 01/25/2023,04/03/2018 Influenza, IIV3, injectable 07/10/2015, 2,03/19/2011 MMR 07/15/1995,10/14/1992 OPV 04/15/1993, 3,1990,1990 TD (adult), 2 Lf tetanus tox oid, preservative free, adsorbed 08/02/2002 Tdap 04/03/2018,07/10/2015,02/10/2012 Social History Tobacco Use Types Packs/Day Years Used Date Smoking Tobacco: Every Day Cigarettes Passive Smoke Exposure: Never Smokeless Tobacco: Never Tobacco Cessation:Ready to Q uit: Not Asked; Counseling Given: Not Answered Alcohol Use Standard Drinks/Week Comments Never 0 [...] not to disclose 2021 10:15 AM EDT Last Filed Vital Signs Vital Sign Reading Time Taken Comments Blood Pressure 145/99 06/12/2024 1:55 PM EST Pulse 114 06/12/2024 1:55 PM EST Temperature 36.9 ??C (98.4 ??F) 06/12/2024 1:55 PM ES T Respiratory Rate 18 06/12/2024 1:55 PM EST Oxygen Saturation 98% 06/12/2024 1:55 PM EST Inhaled Oxygen Concentration - - Weight 105 kg (232 lb) 06/12/2024 1:55 PM EST Height 157.5 cm (5' 2 ) 06/12/2024 1:55 PM EST Body Mass Index 42.43 06/12/2024 1:55 PM EST Plan of Treatment Upcoming Encounters Date Type Department Care Team (Late st Contact Info) Description 07/30/2024 1:30 PM EDT Office Visit [facility] [address] [place], [place] [phone] Timur Ward MD [address] [place], [place] [phone] Health Maintenance Due Date Last Done Comments Pneumococcal Vaccine: Pediatrics (0 to 5 Years) and At-Risk Patients (6 to 64 Years) (1 of 2 - PCV) 1996 Alcohol/Substance Use Screening 2002 Family Planning (PISQ) 2005 Pap Smear 2011 Cervical Cancer Screening 2020 HPV/Cotest 2020 SDOH Screening 08/11/2023 08/10/2022 COVID-19 Vaccine ( season) 2024 Influenza Vaccine (#1) 2024 , 06/23/2022, 04/03/2018, Additional history exists Depression Monitoring (PHQ-9) 04/27/2024 10/27/2023, 10/27/2023 Depression Screening 10/26/2024 10/27/2023, 10/27/19 24 Tobacco Screening 02/07/2025 02/08/2024 Lipid Panel 06/23/2027 06/23/2022, 12/04/2021 DTaP/Tdap/Td Vaccines (8 - Td or Tdap) 04/03/2028 04/03/2018, 07/10/2015, 02/10/2012, Additional history exists Zoster Vaccines (1 of 2) 2040 RSV Patients and Patients Aged 60 years or older (1 - 1-dose 75+ series) 2065 HIB Vaccines Completed 08/14/1992, 1990 IPV Vaccines Completed 07/15/1995, 12/0 05/1992, 10/14/1992, Additional history exists Hepatitis B Vaccines Completed 01/08/2003, 08/02/2002, 07/15/1995 HIV Screening Completed 06/23/2022, 08/25/2020 Hepatitis C Screening Completed 01/25/2023 , 06/23/2022, 08/25/2020 HPV Vaccines Aged Out No longer eligi ble based on patient's age to complete this topic Hepatitis A Vaccines Aged Out No long er eligible based on patient's age to complete this topic Meningococcal Vaccine Aged Out No bubba misael eligible based on patient's age to complete this topic RSV under 20 months Aged Out No longe r eligible based on patient's age to complete this topic Rotavirus Vaccines Aged Out No longer eligible based on patient's age to complete this topic Procedures Procedure Name Priority Date/Time Associated Diagnosis Comments POCT URINALYSIS DIPSTICK Routine 06/12/2024 2:01 PM EST UTI symptoms HEPATITIS C AB W/REFL TO HCV RNA, QN, PCR Routine 01/25/2023 2:25 PM EDT Possible exposure to STD HIV 1 RNA, QN PCR W/RFL JAXON (RTI,PI,INTEGRASE) Routine 06/23/2022 11:17 AM EST Primary hypertension LIPID PANEL, STANDARD Routine 06/23/2022 11:17 AM EST Primary hypertension from Last 3 Months or Most Recently Relevant to Health Maintenance Results * (ABNORMAL) POCT urinalysis dipstick manually resulted (06/12/2024 2:01 PM EST) Color, UA Yellow Clarity, UA Clear Glucose, UA Negative Bilirubin, UA Negative Ketones, UA Negative Spec Grav, UA 1.025 Blood, UA Positive(A) Negative, None Detected Comment:trace-intact pH, UA 6.0 Protein, UA Negative Urobilinogen, UA 0.2 Leukocytes, UA Negative Negative, Rare, Trace Nitrite, UA Negative Negative, None Detected Appearance, UA clear QC Media Lot # Comment:[id number] Lot# Expiration Date Comment:08/13/2024 Urine 06/12/2024 2:01 PM EST Rupinder Martin MD POINT OF CARE TEST ENTER/EDIT ORDERABLES Final Result * Hepatitis C Antibody with Reflex to HCV, RNA, Quantitative, Real-Time PCR (01/25/2023 2:25 PM EDT) Pathologist [facility] [place] Hepatitis C Antibody Nonreactive Nonreactive [facility] Comment:Antibodies to HCV no t detected; does not exclude early acuteHCV infection. Blood Venous blood specimen / Unknown 01/25/2023 2:25 PM EDT 01/25/2023 5:26 PM EDT Timur Kumar MD LAB BLOOD ORDERABL ES Final Result [facility] [address] [place] [phone] * HIV-1 RNA, Quantitative, Real-Time PCR with Reflex to Genotype (RTI, PI, Integrase) (06/23/2022 11:17 AM EST) Pathologist [facility] [place] HIV 1 RNA, QN PCR NOT DETECTED copies/mL [facility], HIV 1 RNA, QN PCR NOT DETECTED Log copies/mL [facility], Comment: REFERENCE RANGE: NOT DETECTED copies/mL ?NOT DETECTED ??Log copies/mL This test was performed using Real-Time Polymerase Chain Reaction. Reportable range is 20 to 10,000,000 copies/mL (1.30-7.00 Log copies/mL). 06/23/2022 11:1 7 AM EST 06/23/2022 11:17 AM EST Narrative [facility] - 06/26/2022 9:45 PM EST FASTING:NO FASTING: NO Timur Kumar MD LAB BLOOD ORDERABL ES Final Result [facility] [address], [place] [address] [facility], [address] [place] [address] * (ABNORMAL) Lipid Panel, Standard (06/23/2022 11:17 AM EST) [facility] Cholesterol, Total 171 <200 mg/dL [facility] HDL Cholesterol 38(L) > OR = 50 mg/dL [facility] Triglycerides 132 <150 mg/dL [facility] LDL Cholesterol 108(H) mg/dL (calc) [facility] Comment: Reference range: <100 Desirable range <100 mg/dL for primary prevention; ?? <70 mg/dL for patients with CHD or diabetic patients with > or = 2 CHD risk factors. LDL-C is now calculated using the Sim-Mckinley calculation, which is a validated novel method providing better accuracy than the Friedewald equation in the estimation of LDL-C. Sim SS et al. DANIEL. 2013;310(19): 4050-4014 (http://education.[employer]/faq/LBK800) Chol/HDLC Ratio 4.5 <5.0 (calc) [facility] Non-HDL Cholesterol 133(H) <130 mg/dL (calc) [facility] Comment: For patients with diabetes plus 1 major ASCVD risk factor, treating to a non-HDL-C goal of <100 mg/dL (LDL-C of <70 mg/dL) is considered a therapeutic option. Blood Venous blood specimen / Unknown 06/23/2022 11:17 AM EST 06/23/2022 11:17 AM EST Narrative [facility] - 06/26/2022 9:45 PM EST FASTING:NO FASTING: NO Timur Kumar MD LAB BLOOD ORDERABL ES Final Result [facility] [address] [facility] [place] [address] [facility] [address] [facility], ([address]) [place] [address] from Last 3 Months or Most Recently Relevant to Health Maintenance Insurance [employer] C3 Care Teams Medical I D Sales Relationship Specialty Start Date End Date Timur Ward MD [address] [place] [id number] PCP - General Internal Medicine 10/09/19
--- OUTSIDE RECORDS SUMMARY | 2024-06-12 15:24 | XMS_ITS | Encounter Summary ---
Author Organization [employer] Address [address] [facility] [address] [place] [address] Care Team Providers Care Rehab Office Coordinator Name Role Phone Timur Ward MD Primary Care Prov ider Encounter Details Date Type Department Care Team (Latest Contact Info) Description 06/12/2024 Travel Social History Tobacco Use Types Packs/Day Years [...] AM EDT documented as of this encounter Plan of Treatment Upcoming Encounters Date Type Department Care Team (Late st Contact Info) Description 07/30/2024 1:30 PM EDT Office Visit [facility] [address] [place] [address] Timur Ward MD [address] [place] [address] documented as of this encounter Visit Diagnoses Not on filedocumented in this encounter Additional Health Concerns Assessment Noted Time PHQ-9 Depression Total Score: 11 024 4:03 PM EDT documented as of this encounter Care Teams Rehab Office Coordinator Relationship Specialty Start Date End Date Timur Ward MD [address] [place] [address] PCP - General Internal Medicine 10/09/19 documented as of this encounter
--- OUTSIDE RECORDS SUMMARY | 2024-06-12 15:24 | XMS_ITS | Encounter Summary ---
Author Organization [employer] Address [address] [facility] [address] [place] [address] Care Team Providers Care Apricot Washer Name Role Phone Timur Ward MD Primary Care Prov ider Encounter Details Date Type Department Care Team (Latest Contact Info) Description 06/07/2024 Travel Social History Tobacco Use Types Packs/Day [...] Description 07/30/2024 1:30 PM EDT Office Visit [facility] PED[facility] [address] [place] [address] Timur Ward MD [address] [place] [address] documented as of this encounter Visit Diagnoses Not on filedocumented in this encounter Additional Health Concerns Assessment Noted Time PHQ-9 Depression Total Score: 11 024 4:03 PM EDT documented as of this encounter Care Teams Apricot Washer Relationship Specialty Start Date End Date Timur Ward MD [address] [place] [address] PCP - General Internal Medicine 10/09/19 documented as of this encounter
--- OUTSIDE RECORDS SUMMARY | 2024-06-12 15:24 | XMS_ITS | Encounter Summary ---
Author Organization [employer] Address 75 [facility] 7 [place] [address] Care Team Providers Care Outdoor Adventure Instructor Name Role Phone Timur Ward MD Primary Care Prov ider Reason for Visit * Reason Onset Date Comments Results 05/12/2023 Encounter Details Date Type Department Care Team ([facility] st Contact Info) Description 05/12/2023 Telephone [facility] CHC MED & PEDS [address] [place] [address] Timur Ward MD [address] [place] [address] Results Social History Tobacco Use Types Packs/Day Years Used Date Smoking Tobacco: Every Day Cigarettes Passive Smoke Exposure: Never Smokeless Tobacco: Never Alcohol Use Standard Drinks/Week Comments Never 0 (1 standard drink = 0.6 oz pur e alcohol) Depression Answer Date Recorded Patient Health Questionnaire-9 Score 13 09/07/2022 Housing Stability Answer Date Recorded What is your housing situation today? I have jennifer solis 03/03/[address] you li ve. Do you have problems with any of the following? None of the above 03/03/2023 Food Insecurity Answer Date Recorded Within the past 12 months, y ou worried that your food would run out before you got money to buy more: Never True 03/03/2023 Within the past 12 months,th e food you bought just didn't last and you didn't have enough money to get more: Never True Transportation Answer Date Recorded In the past 12 months, has l ack of transportation kept you from medical appts, meetings, work or from getting things needed for daily living? No 03/03/2023 Utilities Answer Date Recorded In the past 12 months, has t he electric, gas, oil or water company threatened to shut off services in your home? No 03/03/2023 Depression Answer Date Recorded Patient Health Questionnaire-2 Score 3 09/07/2022 Comments No Sex and Gender Information Value Date Recorded Sex Assigned at Female 03/15/2022 10:15 AM EDT Legal Sex Female 10:15 AM EDT Gender Identity Female 03/15/2022 10:15 AM EDT Sexual Orientation Choose not to disclose 2021 10:15 AM EDT documented as of this encounter Miscellaneous Notes * Telephone Encounter - Aniyah Perez RN - 05/13/2023 1:59 PM EST Returned call to pt regarding message below. Pt informed of normal urine results. Pt requested US results. Explained US results with pt. Pt states being in severe pain and has upcoming appt with Urology in June. Pt states she cannot wait that long. Pt is requesting PCP to prescribe something for the pain and to re refer pt a different urologist that may be able to see pt sooner. Pt informed message would be sent to PCP for review. * Telephone Encounter - Lenny Ansari - 05/12/2023 11:48 AM EST .TC from pt requesting call back regarding Results. Type of results: Lab Date when done: 05/05/23 Facility: [facility] Labs documented in this encounter Plan of Treatment Upcoming Encounters Date Type Department Care Team (Late st Contact Info) Description 07/30/2024 1:30 PM EDT Office Visit [facility] MED & PEDS [address] [place], [place] [phone] Timur Ward MD [address] [place] [address] documented as of this encounter Visit Diagnoses Not on filedocumented in this encounter Additional Health Concerns Assessment Noted Time PHQ-9 Depression Total Score: 13 023 9:45 AM EDT documented as of this encounter Care Teams Outdoor Adventure Instructor Relationship Specialty Start Date End Date Timur Ward MD [address] [place] [id number] PCP - General Internal Medicine 10/09/19 documented as of this encounter
--- OUTSIDE RECORDS SUMMARY | 2024-06-12 15:24 | XMS_ITS | Encounter Summary ---
Author Organization [employer] Address [address] [place] [address] 7 [place] [address] Care Team Providers Care Runner On Name Role Phone Timur Ward MD Primary Care Prov ider Reason for Visit * Reason Onset Date Comments Nurse Triage 06/12/2024 Encounter Details Date Type Department Care Team ([facility] st Contact Info) Description 06/12/2024 Telephone [facility] CHC MED & PEDS [address] [place] [address] Timur Ward MD [address] [place] [address] Nurse Triage Social History Tobacco Use Types [...] encounter Miscellaneous Notes * Telephone Encounter - Carmelita GarnicaMAKI polk - 06/12/2024 9:32 AM EST Triage call returned to patient who reports two concerns. Upper abdominal pain in the mouth of her stomach reports that she is hungry and eats and within ten minutes feels like she is starving and needs to ear again as upper stomach hurts with pain. Onset of this symptom approx. 5 days ago.No nausea or vomiting. No diarrhea or noted blood in stool. Had endoscopy ten years ago per patient. Patient denies acid sensation or sour taste in mouth. Patient also reports that yesterday morning she woke up with having to urinate and has noted left flank pain. Voided and then has noted frequency and pressure as she feels she needs to void again after going. No blood or pus noted in urine. Disposition reviewed and patient in agreement with plan. ASK/SDC/CHC today with at 140pm. Multiple (2) protocols were used on this call. Disposition for Call: See in Office or Video Visit Today Protocol Used: Abdominal Pain - Upper (Adult) Protocol-Based Disposition: See in Office or Video Visit Today Video visit offer not recorded Positive Triage Question: * Patient wants to be seen * All higher-acuity triage questions were negative Care Advice Discussed: * Reasons To Call Back - Severe pain present over 1 hour - Constant pain present over 2 hours - Moderate pains come and go for more than 24 hours - Mild pains come and go for more than 72 hours - You become worse Protocol Used: Urinary Symptoms (Adult) Protocol-Based Disposition: See in Office or Video Visit Today Video visit not offered Positive Triage Question: * Side (flank) or lower back pain present * All higher-acuity triage questions were negative Care Advice Discussed: * Reasons To Call Back - Fever occurs - Pain or burning with urination - Unable to urinate and bladder feels full - You become worse * Telephone Encounter - Milady Armas - 06/12/2024 9:13 AM EST Symptom: Abdominal Pain and kidney pain - Female - Not Outcome: Schedule an urgent appointment (within 4 hours) or talk to a nurse or provider soon Reason: Started within the past 3 days The caller accepted this outcome. documented in this encounter Plan of Treatment Upcoming Encounters Date Type Department Care Team ([facility] st Contact Info) Description 07/30/2024 1:30 PM EDT Office Visit [facility] MED & PEDS [address] [place] [address] Timur Ward MD [address] [place] [address] documented as of this encounter Visit Diagnoses Not on filedocumented in this encounter Additional Health Concerns Assessment Noted Time PHQ-9 Depression Total Score: 11 024 4:03 PM EDT documented as of this encounter Care Teams Runner On Relationship Specialty Start Date End Date Timur Ward MD [address] [place] [address] PCP - General Internal Medicine 10/09/19 documented as of this encounter
--- OUTSIDE RECORDS SUMMARY | 2024-06-12 15:24 | XMS_ITS | Encounter Summary ---
Author Organization [employer] Address 75 [facility] 7 [place] [address] Care Team Providers Care Inspector Repairer Sandstone Name Role Phone Timur Ward MD Primary Care Prov ider Reason for Visit * Reason Onset Date Comments Appointment Request 05/12/2023 Encounter Details Date Type Department Care Team ([facility] st Contact Info) Description 05/12/2023 Telephone [facility] CHC MED & PEDS [address] [place] [address] Timur Ward MD [address] [place] [address] Appointment Request Social History Tobacco Use Types Packs/Day Years [...] encounter Miscellaneous Notes * Telephone Encounter - Lenny Ansari - 05/12/2023 11:39 AM EST Tc from pt looking to schedule an appt with Oscar Fraser. Please contact pt at [phone]. documented in this encounter Plan of Treatment Upcoming Encounters Date Type Department Care Team (Late st Contact Info) Description 07/30/2024 1:30 PM EDT Office Visit [facility] MED & PEDS [address] [place] [address] Timur Ward MD [address] [place] [address] documented as of this encounter Visit Diagnoses Not on filedocumented in this encounter Additional Health Concerns Assessment Noted Time PHQ-9 Depression Total Score: 13 023 9:45 AM EDT documented as of this encounter Care Teams Inspector Repairer Sandstone Relationship Specialty Start Date End Date Timur Ward MD [address] [place] [address] PCP - General Internal Medicine 10/09/19 documented as of this encounter
--- OUTSIDE RECORDS SUMMARY | 2024-06-12 15:24 | XMS_ITS | Encounter Summary ---
Author Organization [employer] Address 75 [facility] 7t [place] [address] Care Team Providers Care Customs Appraiser Name Role Phone Timur Ward MD Primary Care Prov ider Encounter Details Date Type Department Care Team (Late st Contact Info) Description 06/12/2024 1:40 PM EST Office Visit [facility] CHC MED & PEDS [address] [place] [address] Pain of upper abdomen (Primary Dx); UTI symptoms Social History Tobacco Use Types Packs/Day Years [...] AM EDT documented as of this encounter Last Filed Vital Signs Vital Sign Reading [...] Mass Index 42.43 06/12/2024 1:55 PM EST documented in this encounter Plan of Treatment Upcoming Encounters Date Type Department Care Team (Late st Contact Info) Description 07/30/2024 1:30 PM EDT Office Visit [facility] MED & PEDS [address] [place] [address] Timur Ward MD [address] [place] [address] Scheduled Orders Name Type Priority Associated Diagnoses Orde r Schedule Lipase Lab Routine Pain of upper abdomen Expected: 06/12/2024, Expires: 06/12/2025 Comprehensive Metabolic Panel Lab Routine Pain of upper abdomen Expected: 06/12/2024 (Approximate), Expires: 06/12/2025 CBC auto differential Lab Routine Pain of upper abdomen Expected: 06/12/2024 (Approximate), Expires: 06/12/2025 Helicobacter pylori??Antigen, EIA, Stool Lab Routine Pain of upper abdomen Expected: 06/12/2024, Expires: 06/12/2025 documented as of this encounter Procedures Procedure Name Priority Date/Time Associated Diagnosis Comments POCT URINALYSIS DIPSTICK Routine 06/12/2024 2:01 PM EST UTI symptoms documented in this encounter Results * (ABNORMAL) POCT urinalysis dipstick manually [...] Appearance, UA clear QC Media Lot # Comment:[id number] Lot# Expiration Date Comment:08/13/2024 Urine 06/12/2024 2:01 PM EST Rupinder Martin MD POINT OF CARE TEST ENTER/EDIT ORDERABLES Final Result documented in this encounter Visit Diagnoses Diagnosis Pain of upper abdomen- Primary UTI symptoms documented in this encounter Additional Health Concerns Assessment Noted Time PHQ-9 Depression Total Score: 11 10/26/2 024 4:03 PM EDT documented as of this encounter Care Teams Customs Appraiser Relationship Specialty Start Date End Date Timur Ward MD [address] [place] [address] PCP - General Internal Medicine 10/09/19 documented as of this encounter
[2024-06-12 17:49] LABS: MANUAL DIFF FLAG NO
[2024-06-12 17:57] LABS: Basophils Percent Auto 0.5 % (0-2); Eosinophils Absolute Auto 0.2 X10*3/uL (0.0-0.4); Eosinophils Percent Auto 2.6 % (0-4); Hematocrit 38.8 % (37.0-47.0); Hemoglobin 12.5 g/dl (12.0-16.0); Imm Gran Abs Auto 0.03 X10*3/uL (0.00-0.03); Imm Gran Pct Auto 0.4 % (0.0-0.4); Lymphocytes Absolute Auto 2.5 X10*3/uL (1.2-4.9); Lymphocytes Percent Auto 29.4 % (20-40); Mean Corpuscular HGB Conc 32.2 g/dl (31.0-35.0); Mean Corpuscular Hemoglobin 26.7 pg (27.0-33.0); Mean Corpuscular Volume 82.9 fL (80.0-98.0); Mean Platelet Volume 10.9 fL (9.4-12.3); Monocytes Absolute Auto 0.4 X10*3/uL (0.1-1.2); Monocytes Percent Auto 5.1 % (2-11); Neutrophils Absolute Auto 5.2 x10*3/uL (2.0-8.3); Platelet Count 272 X10*3/uL (160-400); Red Blood Count 4.68 X10*6/uL (4.20-5.50); Red Cell Distribution Width 14.3 % (11.0-16.0); White Blood Count 8.4 X10*3/uL (4.8-10.8)
[2024-06-12 18:10] LABS: Alanine Aminotransferase 66 U/L (0-31); Albumin Level 4.5 g/dL (3.5-5.0); Alkaline Phosphatase 68 U/L (39-117); Anion Gap 13 (12-20); Aspartate Amino Transferase 44 U/L (5-31); Bilirubin Total 0.2 mg/dL (0.0-1.0); Blood Urea Nitrogen 11 mg/dL (9-16); Carbon Dioxide 21 mmol/L (22-29); Chloride 107 mmol/L (96-108); Estimated Glomerular Filt Rate > 60; Glucose Random 102 mg/dL (60-115); Lipase 16 U/L (8-78); Sodium 137 mmol/L (135-145); Total Protein 8.4 g/dL (6.5-8.0)
== END 2024-06-12 14:31 | disposition home or self-care (01) ==
LOC: HO.CHCLDS 14:30
PROVIDERS: Visit Provider Internal Medicine
DX: R10.10 Upper abdominal pain, unspecified (principal)
CPT/HCPCS: 36415; 80053; 83690; 85025

== ENCOUNTER 2024-06-14 11:51 | Outpatient (REF) | payer MEDICAID, SELFPAY ==
--- OUTSIDE RECORDS SUMMARY | 2024-06-14 15:41 | XMS_ITS | Encounter Summary ---
Author Organization [employer] Address [address] [place] [address] 7 [place] [address] Care Team Providers Care Infrastructure Architect Name Role Phone Timur aWrd MD Primary Care Prov ider Reason for Visit * Reason Comments Med Change Request Encounter Details Date Type Department Care Team ([facility] Contact Info) Description 06/23/2022 Refill [facility] CHC MED & PEDS [address] [place], [place] [phone] Timur Ward MD [address] [place] [address] Primary hypertension Social History Tobacco Use Types [...] Upcoming Encounters Date Type Department Care Team ([facility] Contact Info) Description 07/30/2024 1:30 PM EDT Office Visit [facility] CHC MED & PEDS [address] [place] [address] Timur Ward MD [address] [place] [address] documented as of this encounter Visit Diagnoses Diagnosis Primary hypertension Unspecified essential hypertension documented in this encounter Care Teams Infrastructure Architect Relationship Specialty Start Date End Date Timur Ward MD [address] [place] [address] PCP - General Internal Medicine 10/09/19 documented as of this encounter
--- OUTSIDE RECORDS SUMMARY | 2024-06-14 15:41 | XMS_ITS | Encounter Summary ---
Author Organization [employer] Address 75 [facility] 7 [place] [address] Care Team Providers Care Biophysics Professor Name Role Phone Timur aWrd MD Primary Care Prov ider Reason for Visit * Reason Onset Date Comments Nurse Triage 06/12/2024 Encounter Details Date Type Department Care Team ([facility] st Contact Info) Description 06/12/2024 Telephone [facility] CHC MED & PEDS [address] [place], [place] [phone] Timur Ward MD [address] [place] [address] Nurse Triage Social History Tobacco Use Types [...] Description 07/30/2024 1:30 PM EDT Office Visit [facility] CHC MED & PEDS [address] [place] [address] Timur Ward MD [address] [place] [address] documented as of this encounter Visit Diagnoses Not on filedocumented in this encounter Additional Health Concerns Assessment Noted Time PHQ-9 Depression Total Score: 11 024 4:03 PM EDT documented as of this encounter Care Teams Biophysics Professor Relationship Specialty Start Date End Date Timur Ward MD [address] [place] [address] PCP - General Internal Medicine 10/09/19 documented as of this encounter
--- OUTSIDE RECORDS SUMMARY | 2024-06-14 15:41 | XMS_ITS | Encounter Summary ---
Author Organization [employer] Address 75 [facility] [address] [place] [address] Care Team Providers Care Executive Producer Name Role Phone Timur Ward MD Primary Care Prov ider Reason for Visit * Reason Onset Date Comments Nurse Triage 11/29/2022 Encounter Details Date Type Department Care Team ([facility] st Contact Info) Description 11/29/2022 Telephone [facility] MEDIC[facility] [address] [place] [address] Timur Ward MD [address] [place] [address] Nurse Triage Social History Tobacco Use Types [...] EDT Triage call Pt last seen in [facility] 11/15 and UTI dx received. Pt [...] didn't help symptoms. Advised to come to [facility] today for urine to be checked and [...] caller accepted this outcome Please contact at [phone] [place] documented in this encounter Plan of Treatment Upcoming Encounters Date Type Department Care Team ([facility] st Contact Info) Description 07/30/2024 1:30 PM EDT Office Visit [facility] MED & PEDS [address] [place] [address] Timur Ward MD [address] [place] [address] documented as of this encounter Visit Diagnoses Not on filedocumented in this encounter Additional Health Concerns Assessment Noted Time PHQ-9 Depression Total Score: 13 023 9:45 AM EDT documented as of this encounter Care Teams Executive Producer Relationship Specialty Start Date End Date Timur Ward MD [address] [place] [address] PCP - General Internal Medicine 10/09/19 documented as of this encounter
--- OUTSIDE RECORDS SUMMARY | 2024-06-14 15:41 | XMS_ITS | Encounter Summary ---
Author Organization [employer] Address [address] [place] [address] [address] [place] [address] Care Team Providers Care Prototype Deicer Assembler Name Role Phone Timur Ward MD Primary Care Prov ider Encounter Details Date Type Department Care Team ([facility] st Contact Info) Description 06/07/2024 1:30 PM EST Telemedicine [facility] CHC MED & PEDS [address] [place], [place] [phone] Timur aWrd MD [address] [place] [address] Class 2 severe obesity due to excess calories with serious comorbidity and body mass index (BMI) of 38.0 to 38.9 in adult (CMS/HCC) (Primary Dx); Bipolar affective disorder, remission status unspecified (CMS/HCC); Dietary counseling; Exercise counseling Social History Tobacco [...] the past 12 months, has t he [employer], gas, oil or water [employer] threatened to shut off services in your [...] List Items Addressed This Visit Bipolar disorder (CMS/HCC) Class 2 severe obesity due to excess calories with serious comorbidity and body mass index (BMI) of38.0 to 38.9 in adult (CMS/[facility]) - Primary Patient has been trying to [...] (BMI) of 38.0 to 38.9 in adult ([facility]) Patient has been trying to watch her [...] Description 07/30/2024 1:30 PM EDT Office Visit [facility] CHC MED & PEDS [address] [place] [address] Timur Ward MD [address] [place] [address] documented as of this encounter Visit Diagnoses Diagnosis Class 2 severe obesity due to excess calories with serious comorbidity and body mass index (BMI) of 38.0 to 38.9 in adult ([facility])- Primary Bipolar affective disorder, remission status unspecified ([facility]) Dietary counseling Dietary surveillance and counseling Exercise counseling documented in this encounter Additional Health Concerns Assessment Noted Time PHQ-9 Depression Total Score: 11 10/26/ 024 4:03 PM EDT documented as of this encounter Care Teams Prototype Deicer Assembler Relationship Specialty Start Date End Date Timur Ward MD [address] [place] [address] PCP - General Internal Medicine 10/09/19 documented as of this encounter
--- OUTSIDE RECORDS SUMMARY | 2024-06-14 15:41 | XMS_ITS | Encounter Summary ---
Author Organization [email or web address] Address [address] [place] [address] 7 [place] [address] Care Team Providers Care Library Cataloging Technician Name Role Phone Timur Ward MD Primary Care Prov ider Encounter Details Date Type Department Care Team ([facility] st Contact Info) Description 06/12/2024 1:40 PM EST Office Visit [facility] CHC MED & PEDS [address] [place], [place] [phone] Rupinder Martin MD [address] [place] [address] Pain of upper abdomen (Primary Dx); UTI [...] 1:55 PM EST documented in this encounter Progress Notes * Rupinder Martin MD - 06/12/2024 1:40 PM EST Subjective Patient ID: Liz Mercado is a 34 y.o. female who presents for abdominal pain. HPI Liz has felt sick for the past 4 days. Started having abdominal pain after eating dinner thatday but felt also a terrible hunger and that she needed to eat more. But the more she ate, the worse she felt. The pain is similar to the pain that prompted a cholecystectomy within the past few years. Since Tuesday, the pain has been intermittent, only appearing at night and after eating. Was nausea ozzie briefly. No diarrhea or constipation. Has had some chills. Reports this pain is a 9/10. Also started having kidney pain in both kidneys for the past 2 days. Knows when she is having pain from kidney stones. Has been drinking lots of fluids and taking Tylenol. Reports the pain is abouta 8/10. Review of Systems Constitutional: Positive for appetite change (increased) and chills. Negative for fever. Cardiovascular: Negative for chest pain. Gastrointestinal: Positive for abdominal pain (per HPI) and nausea. Negative for blood in stool, constipation, diarrhea and vomiting. Genitourinary: Positive for flank pain. Negative for hematuria. Objective BP (!) 145/99 (BP Location: Left arm, Patient Position: Sitting, BP Cuff Size: Large adult) Pulse(!) 114 Temp 98.4 ??F (36.9 ??C) (Oral) Resp 18 Ht 5' 2 (1.575 m) Wt 232 lb (105 kg) SpO2 98% BMI 42.43 kg/m?? Physical Exam Constitutional: Comments: Appears uncomfortable HENT: Head: Normocephalic and atraumatic. Nose: Nose normal. Mouth/Throat: Mouth: Mucous membranes are moist. Eyes: General: No scleral icterus. Conjunctiva/sclera: Conjunctivae normal. Pupils: Pupils are equal, round, and reactive to light. Cardiovascular: Rate and Rhythm: Regular rhythm. Tachycardia present. Pulses: Normal pulses. Heart sounds: Normal heart sounds. Pulmonary: Effort: Pulmonary effort is normal. Breath sounds: Normal breath sounds. Abdominal: General: Abdomen is flat. Bowel sounds are normal. There is no distension. Palpations: Abdomen is soft. There is no mass. Tenderness: There is abdominal tenderness (epigastrium). There is right CVA tenderness and left CVAtenderness. There is no guarding or rebound. Musculoskeletal: Right lower leg: No edema. Left lower leg: No edema. Skin: General: Skin is warm and dry. Capillary Refill: Capillary refill takes less than 2 seconds. Coloration: Skin is not jaundiced. Neurological: General: No focal deficit present. Mental Status: She is alert. Psychiatric: Mood and Affect: Mood normal. Behavior: Behavior normal. Assessment/Plan Diagnoses and all orders for this visit: Pain of upper abdomen: Pain could be due to PUD, gastritis, IBD, pancreatitis. Taking PPI daily x 1month so PUD or gastritis less likely. Has had cholecystectomy and does not drink alcohol, so pancreatitis less likely. Does not take NSAIDs regularly. Has had extensive w/u for abdominal pain, so IBD possible. Will check labs below and sent Rx for Maalox. If w/u negative, will recommend she RTC ofher GI doctor. - Lipase; Future - Comprehensive Metabolic Panel; Future - CBC auto differential; Future - Helicobacter pylori Antigen, EIA, Stool; Future - aluminum-magnesium hydroxide-simethicone (Maalox Max) 400-400-40 MG/5ML suspension; Take 10 mL bymouth every 6 (six) hours if needed (abdominal pain) for up to 10 days. UTI symptoms: Has known bilateral nephrolithiasis. UA today only with trace blood. Recommended she hydrate will and go to ED if symptoms do not improve. - POCT urinalysis dipstick manually resulted Future Appointments Date Time Provider Department Center 07/30/2024 1:30 PM Timur Kumar MD [facility] MED [facility] documented in this encounter Plan of Treatment Upcoming Encounters Date Type Department Care Team (Late st Contact Info) Description 07/30/2024 1:30 PM EDT Office Visit [facility] MED & PEDS [address] [place] [phone] Timur Ward MD [address] [place] [phone] Scheduled Orders Name Type Priority Associated Diagnoses Orde r Schedule Helicobacter pylori??Antigen, EIA, Stool Lab Routine Pain of upper abdomen Expected: 06/12/2024, Expires: 06/12/2025 documented as of this encounter Procedures Procedure Name Priority Date/Time Associated Diagnosis Comments CBC WITH AUTO DIFFERENTIAL Routine 06/12/2024 2:32 PM EST Pain of upper abdomen LIPASE Routine 06/12/2024 2:32 PM EST Pain of upper abdomen COMPREHENSIVE METABOLIC PANEL Routine 06/12/2024 2:32 PM EST Pain of upper abdomen POCT URINALYSIS DIPSTICK Routine 06/12/2024 2:01 PM EST UTI symptoms documented in this encounter Results * (ABNORMAL) CBC auto differential (06/12/2024 2:32 PM EST) White Blood Count 8.4 4.8 - 10.8 X10*3/uL [facility] Red Blood Count 4.68 4.20 - 5.50 X10*6/uL [facility] Hemoglobin 12.5 12.0 - 16.0 g/dl [facility] Hematocrit 38.8 37.0 - 47.0 % [facility] Mean Corpuscular Volume 82.9 80.0 - 98.0 fL [facility] Mean Corpuscular Hemoglobin 26.7(L) 27.0 - 33.0 pg [facility] Mean Corpuscular HGB Conc 32.2 31.0 - 35.0 g/dl [facility] Red Cell Distribution Width 14.3 11.0 - 16.0 % [facility] Platelet Count 272 160 - 400 X10*3/uL [facility] Mean Platelet Volume 10.9 9.4 - 12.3 fL [facility] Neutrophils Percent Auto 62.0 45 - 73 % [facility] Imm Gran Pct Auto 0.4 0.0 - 0.4 % [facility] Lymphocytes Percent Auto 29.4 20 - 40 % [facility] Monocytes Percent Auto 5.1 2 - 11 % [facility] Eosinophils Percent Auto 2.6 0 - 4 % [facility] Basophils Percent Auto 0.5 0 - 2 % [facility] NRBC Pct Auto 0.0 0.0 - 0.2 /100WBC [facility] Neutrophils Absolute Auto 5.2 2.0 - 8.3 x10*3/uL [facility] Imm Gran Abs Auto 0.03 0.00 - 0.03 X10*3/uL [facility] Lymphocytes Absolute Auto 2.5 1.2 - 4.9 X10*3/uL [facility] Monocytes Absolute Auto 0.4 0.1 - 1.2 X10*3/uL [facility] Eosinophils Absolute Auto 0.2 0.0 - 0.4 X10*3/uL [facility] Basophils Absolute Auto 0.0 0.0 - 0.2 X10*3/uL [facility] NRBC Abs Auto 0.000 0.0 - 0.012 X10*3/uL [facility] Blood Venous blood specimen / Unknown 06/12/2024 2:32 PM EST 06/12/2024 5:46 PM EST us Rupinder Martin MD LAB BLOOD ORDERABLES Final Re sult [facility] [address] [place] [phone] * (ABNORMAL) Comprehensive Metabolic Panel (06/12/2024 2:32 PM EST) Sodium 137 135 - 145 mmol/L [facility] Potassium 4.0 3.3 - 5.1 mmol/L [facility] Chloride 107 96 - 108 mmol/L [facility] Carbon Dioxide 21(L) 22 - 29 mmol/L [facility] Anion Gap 13 12 - 20 [facility] Urea Nitrogen (BUN) 11 9 - 16 mg/dL [facility] Creatinine, Serum 0.69 0.5 - 1.4 mg/dL [facility] Estimated Glomerular Filt Rate >60 [facility] Comment:Chronic Kidney Disea se: Estimated GFR < 60 mL/min/[id number] Kidney Disease: Estimated GFR < 15 mL/min/1.73m2 Glucose 102 60 - 115 mg/dL [facility] Calcium 9.0 8.4 - 10.2 mg/dL [facility] Bilirubin, Total 0.2 0.0 - 1.0 mg/dL [facility] Aspartate Amino Transferase 44(H) 5 - 31 U/L [facility] Alanine Aminotransferase 66(H) 0 - 31 U/L [facility] Total Protein 8.4(H) 6.5 - 8.0 g/dL [facility] Albumin Level 4.5 3.5 - 5.0 g/dL [facility] Alkaline Phosphatase 68 39 - 117 U/L [facility] Blood Venous blood specimen / Unknown 06/12/2024 2:32 PM EST 06/12/2024 5:46 PM EST Rupinder Martin MD LAB BLOOD ORDERABLES Final Re sult Performing Organization Address [facility]/ZIP Co de Phone Number [facility] [address] [place] [phone] * Lipase (06/12/2024 2:32 PM EST) Lipase 16 8 - 78 U/L [facility] Blood Venous blood specimen / Unknown 06/12/2024 2:32 PM EST 06/12/2024 5:46 PM EST Rupinder Martin MD LAB BLOOD ORDERABLES Final Re sult Performing Organization Address [facility] Phone Number [facility] [address] [place] [phone] * (ABNORMAL) POCT urinalysis dipstick manually resulted [...] Appearance, UA clear QC Media Lot # Comment:[id number] Lot# Expiration Date Comment:08/13/2024 Urine 06/12/2024 2:01 PM EST Rupinder Martin MD POINT OF CARE TEST ENTER/EDIT ORDERABLES Final Result documented in this encounter Visit Diagnoses Diagnosis Pain of upper abdomen- Primary UTI symptoms documented in this encounter Additional Health Concerns Assessment Noted Time PHQ-9 Depression Total Score: 11 024 4:03 PM EDT documented as of this encounter Care Teams Library Cataloging Technician Relationship Specialty Start Date End Date Timur Ward MD [address] [place] [phone] PCP - General Internal Medicine 10/09/19 documented as of this encounter
--- OUTSIDE RECORDS SUMMARY | 2024-06-14 15:41 | XMS_ITS | Clinical Summary ---
Author Organization [employer] Address [address] [place] [address] [address] [place] [address] Care Team Providers Care Flotation Tender Name Role Phone Timur Ward MD Primary [...] days. 355 mL 5 06/22/19 25 Active sucralfate (Carafate) 1 g tablet Take 1 tablet (1 g) by mouth before breakfast, before lunch, before evening meal, and at bedtime. 120 tablet 5 07/15/19 25 Active Hospital, Clinic, or Other Facility [...] be retiring, patient is referred to new [facility] psychiatric prescriber. Pt is aware that appointments will be via televisit and that provider willnot be an employee of [facility]. She gives permission to share [...] Topiramate 150 mg BID. Prescriptions sent to [facility] pharmacy for home delivery. Watch for [...] asked her to continue for now. F/U wt me in 2-3 weeks. She agrees with [...] Encounters Date Type Department Care Team Description 06/14/2024 2:15 PM EST Telemedicine [facility] [address] [place] [address] Timur Ward MD Epigastric pain (Primary Dx); Elevated liver enzymes 06/14/2024 Telephone [facility] [address] [place] [address] Timur Ward MD 06/14/2024 Travel 06/13/[address] [phone] Vicky Singh, RN Results 06/12/2024 1:40 PM EST Office Visit [facility] [address] [place] [address] Rupinder Martin MD Pain of upper abdomen (Primary Dx); UTI symptoms 06/12/2024 Orders Only [facility] [address] [place] [address] Rupinder Martin MD Elevated liver enzymes (Primary Dx) 06/12/2024 Travel 06/12/2024 Telephone [facility] [address] [place] [address] Timur Ward MD Nurse Triage 06/07/2024 1:30 PM EST Telemedicine [facility] [address] [place] [address] Timur Ward MD Class 2 severe obesity due to excess calories with serious comorbidity and body mass index (BMI) of 38.0 to 38.9 in adult (CMS/HCC) (Primary Dx); Bipolar affective disorder, remission status unspecified (CMS/HCC); Dietary counseling; Exercise counseling 06/07/2024 Travel 06/05/2024 Telephone [facility] [address] [place] [address] Timur Ward MD Medication Question from Last 3 Months Immunizations Name Administration [...] Description 07/30/2024 1:30 PM EDT Office Visit [facility] MED & PEDS [address] [place] [address] Timur Ward MD [address] [place] [address] Health Maintenance Due Date Last Done Comments Alcohol/Substance Use Screening 2002 Family Planning (PISQ) 2005 Pneumococcal Vaccine: Pediatrics (0 to 5 Years) and At-Risk Patients (6 to 49) Years) (1 of 2 - PCV) 2009 Pap Smear 2011 Cervical Cancer Screening 2020 HPV/Cotest 2020 SDOH Screening 08/11/2023 08/10/2022 COVID-19 Vaccine (1 - season) 2024 Influenza Vaccine (#1) 2024 , 06/23/2022, 04/03/2018, Additional history exists Depression Monitoring (PHQ-9) 04/27/2024 10/27/2023, 10/27/2023 Depression Screening 10/26/2024 10/27/2023, 10/27/19 Tobacco Screening 02/07/2025 02/08/2024 Lipid Panel 06/23/2027 06/23/2022, 12/04/2021 DTaP/Tdap/Td Vaccines (8 - Td or Tdap) 04/03/2028 04/03/2018, 07/10/2015, 02/10/2012, Additional history exists Zoster Vaccines (1 of 2) 2040 RSV Patients and Patients Aged 60 years or older (1 - 1-dose 75+ series) 2065 HIB Vaccines Completed 08/14/1992, 1990 IPV Vaccines Completed 07/15/1995, 05/1992, 10/14/1992, Additional history exists Hepatitis B [...] Relevant to Health Maintenance Results * (ABNORMAL) CBC auto differential (06/12/2024 [facility] [address] [place] [phone] * Lipase (06/12/2024 2:32 PM EST) Lipase 16 8 - 78 U/L [facility] Blood Venous blood specimen / Unknown 06/12/2024 2:32 PM EST 06/12/2024 5:46 PM EST us Rupinder Martin MD LAB BLOOD ORDERABLES Final Re sult Performing Organization Address [facility] [address]/ZIP Co de Phone Number [facility] [address] [place] [phone] * (ABNORMAL) Comprehensive Metabolic Panel (06/12/2024 [...] Kidney Disea se: Estimated GFR < 60 mL/min/[id number] Kidney Disease: Estimated GFR < 15 mL/min/1.73m2 [...] ORDERABLES Final Re sult Performing Organization Address City/[facility] [address]/ZIP Co de Phone Number [facility] [address] [place] [phone] * (ABNORMAL) POCT urinalysis dipstick manually resulted (06/12/2024 2:01 PM EST) Pathologist [facility] Color, UA Yellow Clarity, UA Clear Glucose, UA Negative Bilirubin, UA Negative Ketones, UA Negative Spec Grav, UA 1.025 Blood, UA Positive(A) Negative, None Detected Comment:trace-intact pH, UA 6.0 Protein, UA Negative Urobilinogen, UA 0.2 Leukocytes, UA Negative Negative, Rare, Trace Nitrite, UA Negative Negative, None Detected Appearance, UA clear QC Media Lot # Comment:[id number] Lot# Expiration Date Comment:08/13/2024 Urine 06/12/2024 2:01 PM EST us Rupinder Martin MD POINT OF CARE TEST ENTER/EDIT ORDERABLES Final Result * Hepatitis C Antibody with Reflex to HCV, RNA, Quantitative, Real-Time PCR (01/25/2023 2:25 PM EDT) [facility] Hepatitis C Antibody Nonreactive Nonreactive [facility] Comment:Antibodies to HCV no t detected; does not exclude early acuteHCV infection. Blood Venous blood specimen / Unknown 01/25/2023 2:25 PM EDT 01/25/2023 5:26 PM EDT us Timur Kumar MD LAB BLOOD ORDERABL ES Final Result [facility] [address] [place] [phone] * HIV-1 RNA, Quantitative, Real-Time PCR with Reflex to Genotype (RTI, PI, Integrase) (06/23/2022 11:17 AM EST) [facility] HIV 1 RNA, QN PCR NOT DETECTED copies/mL [facility] [employer] [facility], HIV 1 RNA, QN PCR NOT DETECTED Log copies/mL [facility] [place] [facility], Comment: REFERENCE RANGE: NOT DETECTED copies/mL ?NOT DETECTED ??Log copies/mL This test was performed using Real-Time Polymerase Chain Reaction. Reportable range is 20 to 10,000,000 copies/mL (1.30-7.00 Log copies/mL). 06/23/2022 11:1 7 AM EST 06/23/2022 11:17 AM EST Narrative [facility] - 06/26/2022 9:45 PM EST FASTING:NO FASTING: NO us Timur Kumar MD LAB BLOOD ORDERABL ES Final Result [facility] [address], [place] [address] [facility], [address] [place] [phone] * (ABNORMAL) Lipid Panel, Standard (06/23/2022 11:17 AM EST) [facility] Cholesterol, Total 171 <200 mg/dL [facility] HDL Cholesterol 38(L) > OR = 50 mg/dL [facility] [facility] Triglycerides 132 <150 mg/dL [facility] [facility] LDL Cholesterol 108(H) mg/dL (calc) [facility] Comment: Reference range: <100 Desirable range <100 mg/dL for primary prevention; ?? <70 mg/dL for patients with CHD or diabetic patients with > or = 2 CHD risk factors. LDL-C is now calculated using the Sim-Mckinley calculation, which is a validated novel method providing better accuracy than the Friedewald equation in the estimation of LDL-C. Sim SS et al. DANIEL. 2013;310(19): 8374-6673 (http://education.[employer]/faq/JZM026) Chol/HDLC Ratio 4.5 <5.0 (calc) [facility] Non-HDL Cholesterol 133(H) <130 mg/dL (calc) [employer] [facility] [employer] Comment: For patients with diabetes plus 1 major ASCVD risk factor, treating to a non-HDL-C goal of <100 mg/dL (LDL-C of <70 mg/dL) is considered a therapeutic option. Blood Venous blood specimen / Unknown 06/23/2022 11:17 AM EST 06/23/2022 11:17 AM EST Narrative [facility] - 06/26/2022 9:45 PM EST FASTING:NO FASTING: NO Timur Kumar MD LAB BLOOD ORDERABL ES Final Result [facility] [employer] [address] [place] [address], [facility], [place] [address] [employer] [facility] [address] [facility], (Nl[address]) [place] [phone] from Last 3 Months or Most Recently Relevant to Health Maintenance Insurance Wix C3 Wix C3 Care Teams Flotation Tender Relationship Specialty Start Date End Date Timur Ward MD [address] [place] [phone] PCP - General Internal Medicine 10/09/19
--- OUTSIDE RECORDS SUMMARY | 2024-06-14 15:41 | XMS_ITS | Encounter Summary ---
Author Organization [employer] Address [address] [place] [address] 7 [place] [address] Care Team Providers Care Test Development Engineer Name Role Phone Timur Ward MD Primary Care Prov ider Encounter Details Date Type Department Care Team ([facility] st Contact Info) Description 06/12/2024 Orders Only [facility]EDS [address] [place], [place] [phone] Rupinder Martin MD [address] [place] [address] Elevated liver enzymes (Primary Dx) Social History Tobacco Use Types Packs/Day Years [...] 07/30/2024 1:30 PM EDT Office Visit [facility] [address] [place] [address] Timur Ward MD [address] [place] [address] Scheduled Orders Name Type Priority Associated Diagnoses Orde r Schedule Hepatitis B Surface Antibody, Qualitative Lab Routine Elevated liver enzymes Expected: 06/12/2024 (Approximate), Expires: 06/12/2025 Hepatitis B Core Antibody, Total Lab Routine Elevated liver enzymes Expected: 06/12/2024 (Approximate), Expires: 06/12/2025 Hepatitis B surface antigen, EIA Lab Routine Elevated liver enzymes Expected: 06/12/2024 (Approximate), Expires: 06/12/2025 Hepatitis C Antibody with Reflex to HCV, RNA, Quantitative, Real-Time PCR Lab Routine Elevated liver enzymes Expected: 06/12/2024, Expires: 06/12/2025 documented as of this encounter Visit Diagnoses Diagnosis Elevated liver enzymes- Primary Other nonspecific abnormal serum enzyme levels documented in this encounter Additional Health Concerns Assessment Noted Time PHQ-9 Depression Total Score: 11 024 4:03 PM EDT documented as of this encounter Care Teams Test Development Engineer Relationship Specialty Start Date End Date Timur Ward MD [address] [place] [phone] PCP - General Internal Medicine 10/09/19 documented as of this encounter
--- OUTSIDE RECORDS SUMMARY | 2024-06-14 15:41 | XMS_ITS | Encounter Summary ---
Author Organization [employer] Address [address] [facility] [facility] 7 [place] [address] Care Team Providers Care Web Site Specialist Name Role Phone Timur aWrd MD Primary Care Prov ider Reason for Visit * Reason Onset Date Comments Results 06/13/2024 Encounter Details Date Type Department Care Team ([facility] st Contact Info) Description 06/13/2024 Telephone [facility] [address] [place] [address] Vicky Singh, CHADD Results Social History Tobacco Use Types Packs/Day [...] encounter Miscellaneous Notes * Telephone Encounter - Vicky Singh RN - 06/13/2024 4:36 PM EST Incoming TC from pt. RN informed of provider message, Please inform Liz her liver tests weremildly elevated. That might be due to her known condition of her liver fatty liver but there alsomight be something acute going on, so I have ordered more blood tests to look for viral hepatitis. Having hepatitis might make her have symptoms like she is describing. Pt requesting access to MyChart. Advised to ask FD staff at [facility] for assistance as [facility] FD staff not available. Pt states they willgo to lab tomorrow. Pt verbalized understanding and denies further questions or concerns at this time * Telephone Encounter - Bob Ross - 06/13/2024 4:31 PM EST Tc * Telephone Encounter - Reginaldo Green - 06/13/2024 3:32 PM EST Tc from pt returning call regarding prior message. Contact pt at [phone] * Telephone Encounter - Vicky Singh RN - 06/13/2024 2:48 PM EST TC placed to pt to inform of provider message, Please inform Liz her liver tests were mildlyelevated. That might be due to her known condition of her liver fatty liver but there also might be something acute going on, so I have ordered more blood tests to look for viral hepatitis. Having hepatitis might make her have symptoms like she is describing. Pt asked for spanish medical interpreter. TC x 4 placed to pt via [employer] spanish medical interpreter (Serafin ID#[id number]). Management Consultant states call will not go through and tried4 times. RN tried to call pt again without spanish medical interpreter. Call went to [employer]. LVM to call office back. documented in this encounter Plan of Treatment Upcoming Encounters Date Type Department Care Team (Late st Contact Info) Description 07/30/2024 1:30 PM EDT Office Visit [facility] MED & PEDS [address] [place] [address] Timur Ward MD [address] [place] [address] documented as of this encounter Visit Diagnoses Not on filedocumented in this encounter Additional Health Concerns Assessment Noted Time PHQ-9 Depression Total Score: 11 024 4:03 PM EDT documented as of this encounter Care Teams Web Site Specialist Relationship Specialty Start Date End Date Timur Ward MD [address] [place] [address] PCP - General Internal Medicine 10/09/19 documented as of this encounter
--- OUTSIDE RECORDS SUMMARY | 2024-06-14 15:41 | XMS_ITS | Encounter Summary ---
Author Organization [employer] Address [address] [facility] 7 [place] [address] Care Team Providers Care Multi Spindle Operator Name Role Phone Timur Ward MD Primary Care Prov ider Reason for Visit * Reason Onset Date Comments Appointment Request 05/12/2023 Encounter Details Date Type Department Care Team ([facility] Contact Info) Description 05/12/2023 Telephone [facility] MED & PEDS [address] [place], [place] [phone] Timur Ward MD [address] [place] [address] Appointment Request Social History Tobacco Use Types [...] encounter Miscellaneous Notes * Telephone Encounter - Lennylala Ansari - 05/12/2023 11:39 AM EST Tc from pt looking to schedule an appt with Oscar Fraser. Please contact pt at [phone]. documented in this encounter Plan of Treatment Upcoming Encounters Date Type Department Care Team (Late st Contact Info) Description 07/30/2024 1:30 PM EDT Office Visit [facility] MED & PEDS [address] [place] [address] Timur Ward MD [address] [place] [address] documented as of this encounter Visit Diagnoses Not on filedocumented in this encounter Additional Health Concerns Assessment Noted Time PHQ-9 Depression Total Score: 13 023 9:45 AM EDT documented as of this encounter Care Teams Multi Spindle Operator Relationship Specialty Start Date End Date Timur Ward MD [address] [place] [address] PCP - General Internal Medicine 10/09/19 documented as of this encounter
--- OUTSIDE RECORDS SUMMARY | 2024-06-14 15:41 | XMS_ITS | Encounter Summary ---
Author Organization [employer] Address [address] [facility] [address] [place] [address] Care Team Providers Care Payroll Accounting Manager Name Role Phone Timur Ward MD [...] Upcoming Encounters Date Type Department Care Team ([facility] st Contact Info) Description 07/30/2024 1:30 PM EDT Office Visit [facility] MED & PEDS [address] [place] [address] Timur Ward MD [address] [place] [address] documented as of this encounter Visit Diagnoses Not on filedocumented in this encounter Additional Health Concerns Assessment Noted Time PHQ-9 Depression Total Score: 11 024 4:03 PM EDT documented as of this encounter Care Teams Payroll Accounting Manager Relationship Specialty Start Date End Date Timur Ward MD [address] [place] [address] PCP - General Internal Medicine 10/09/19 documented as of this encounter
--- OUTSIDE RECORDS SUMMARY | 2024-06-14 15:41 | XMS_ITS | Encounter Summary ---
Author Organization [employer] Address [address] [facility] [address] [place] [address] Care Team Providers Care Residential Support Specialist Name Role Phone Timur Ward MD Primary Care Prov ider Reason for Visit * Reason Onset Date Comments Medication Question 06/05/2024 Encounter Details Date Type Department Care Team ([facility] Contact Info) Description 06/05/2024 Telephone [facility] MED & PEDS [address] [place], [place] [phone] Timur Ward MD [address] [place] [address] Medication Question Social History Tobacco Use Types [...] Upcoming Encounters Date Type Department Care Team ([facility] st Contact Info) Description 07/30/2024 1:30 PM EDT Office Visit [facility] MED & PEDS [address] [place], [place] [phone] Timur Ward MD [address] [place], [place] [phone] documented as of this encounter Visit Diagnoses Not on filedocumented in this encounter Additional Health Concerns Assessment Noted Time PHQ-9 Depression Total Score: 11 10/26/ 024 4:03 PM EDT documented as of this encounter Care Teams Residential Support Specialist Relationship Specialty Start Date End Date Tmiur Ward MD [address] [place] [address] PCP - General Internal Medicine 10/09/19 documented as of this encounter
--- OUTSIDE RECORDS SUMMARY | 2024-06-14 15:41 | XMS_ITS | Encounter Summary ---
Author Organization [employer] Address [address] [facility] [address] [place] [address] Care Team Providers Care Founder And President Name Role Phone Timur Ward MD Primary Care Prov ider Reason for Visit * Reason Onset Date Comments Results 05/12/2023 Encounter Details Date Type Department Care Team ([facility] Contact Info) Description 05/12/2023 Telephone [facility] MED & PEDS [address] [place], [place] [phone] Timur Ward MD [address] [place] [address] Results Social History Tobacco Use Types Packs/Day [...] results: Lab Date when done: 05/05/23 Facility: [facility] documented in this encounter Plan of Treatment Upcoming Encounters Date Type Department Care Team (Late st Contact Info) Description 07/30/2024 1:30 PM EDT Office Visit [facility] CH[facility] MED & PEDS [address] [place], [place] [phone] Timur Ward MD [address] [place], [place] [phone] documented as of this encounter Visit Diagnoses Not on filedocumented in this encounter Additional Health Concerns Assessment Noted Time PHQ-9 Depression Total Score: 13 023 9:45 AM EDT documented as of this encounter Care Teams Founder And President Relationship Specialty Start Date End Date Timur Ward MD [address] [place] [address] PCP - General Internal Medicine 10/09/19 documented as of this encounter
--- OUTSIDE RECORDS SUMMARY | 2024-06-14 15:41 | XMS_ITS | Clinical Summary ---
Author Organization [facility] Address [address] [place] [address] Care Team Providers Care [place] Specialty Foreign Food Name Role Phone Unavailable Primary Care Provider [...] (BMI) of 38.0 to 38.9 in adult ([facility]) 01/25/2023 Overview (03/15/2024): Last Assessment & Plan: Will start on phentermine, side effects discussed, Bipolar affective disorder, currently depressed, moderate ([facility]) 07/19/2022 Overview (03/15/2024): Patient presents with [...] be retiring, patient is referred to new [facility] psychiatric prescriber. Pt is aware that appointments will be via televisit and that provider willnot be an employee of [facility]. She gives permission to share PHI. Any [...] EDT Behavioral Health Visit [facility] [address] [place] [phone] Isa Shen APRN Bipolar affective disorder, currently depressed, moderate ([facility]) (Primary Dx); PTSD (post-traumatic stress disorder) from [...] Screening 12/04/2022 12/04/2021 Lipid Screening 06/23/2023 06/23/2022 [id number] ( season) 2024 Imm-Influenza (#1) 2024 01/25/2023, [...] Discontinued Vaginal Pap Discontinued Vulvoscopy Discontinued Insurance [place] MEDICA[place] [facility]
--- OUTSIDE RECORDS SUMMARY | 2024-06-14 15:41 | XMS_ITS | Encounter Summary ---
Author Organization [employer] Address [address] [facility] [address] [place] [address] Care Team Providers Care Websphere Portal Developer Name Role Phone Timur Ward MD [...] Upcoming Encounters Date Type Department Care Team ([facility] st Contact Info) Description 07/30/2024 1:30 PM EDT Office Visit [facility] CH[facility] MED & PEDS [address] [place] [address] Timur Ward MD [address] [place] [address] documented as of this encounter Visit Diagnoses Not on filedocumented in this encounter Additional Health Concerns Assessment Noted Time PHQ-9 Depression Total Score: 11 024 4:03 PM EDT documented as of this encounter Care Teams Websphere Portal Developer Relationship Specialty Start Date End Date Timur Ward MD [address] [place] [address] PCP - General Internal Medicine 10/09/19 documented as of this encounter
[2024-06-15 04:12] LABS: HBS Num1 105.06 mIU/mL (0-7.99); HBc Num1 0.13 S/CO (0.00-0.79); HBsAGNum1 0.32 S/CO (0.00-0.99); Hepatitis B Core Antibody Nonreactive (Nonreactive); Hepatitis B Surface Antigen Negative (Negative); ~HepC Num1 0.26 S/CO (0.00-0.79); ~Hepatitis B Surface Antibody REACTIVE (Nonreactive); ~Hepatitis C Antibody Nonreactive (Nonreactive)
== END 2024-06-14 11:52 | disposition home or self-care (01) ==
LOC: HO.CHCLDS 11:51
PROVIDERS: Visit Provider Internal Medicine
DX: R74.8 Abnormal levels of other serum enzymes (principal)
CPT/HCPCS: 36415; 86704; 86706; 86803; 87340

== ENCOUNTER 2024-10-10 10:33 | Outpatient (REF) | payer MEDICAID, SELFPAY ==
--- OUTSIDE RECORDS SUMMARY | 2024-10-10 11:36 | XMS_ITS | Clinical Summary ---
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 30 patch 1 5 Active lisinopril 40 MG tabletIndications :Primary hypertension Take 1 tablet (40 mg) by mouth Once per day. 90 tablet 3 5 06/20/19 26 Active lidocaine (Lidoderm) 5 % patch Apply 1 patch topically Once per day. Remove & discard patch within 12 hours or as directed by . 30 patch 5 Active tiZANidine (Zanaflex) 4 MG tablet Take 1 tablet (4 mg) by mouth every 8 (eight) hours if needed for muscle spasms for up to 10 days. 30 tablet 5 Active Acetaminophen 500 MG capsule Take 1 capsule orally tid prn pain 90 capsule 3 5 Active hydrOXYzine pamoate (Vistaril) 25 MG capsuleIndication s:Bipolar affective disorder, currently depressed, moderate (CMS/HCC) Take 1 capsule (25 mg) by mouth if needed in the morning and at bedtime for anxiety. 30 capsule 5 Active ARIPiprazole (Abilify) 15 MG tabletIndications :Bipolar affective disorder, currently depressed, moderate (CMS/HCC) Take 1 tablet (15 mg) by mouth Once per day. 30 tablet 1 5 10/13/19 25 Active pantoprazole (Protonix) 20 MG EC tablet Take 1 tablet (20 mg) by mouth 2 times daily. Do not crush, chew, or split. 60 tablet 11 5 08/22/19 26 Active dicyclomine (Bentyl) 20 MG tablet Take 1 tablet (20 mg) by mouth before breakfast, before lunch, before evening meal, and at bedtime. 120 tablet 1 5 12/09/19 25 Active Hospital, Clinic, or Other Facility Administered Medication Ordered Dose Route Frequency Start Date End Date Status ibuprofen tablet 400 mgIndications:Chronic migraine without aura without status migrainosus, not intractable 400 mg PO Once 12/16/2022 Active Active Problems Problem Noted Date Diagnosed Date Generalized anxiety disorder 09/14/2024 Assessment & Plan (09/14/2024 12:47 PM EDT): During IBH Consult Liz presenting with excessive worry/anxiety, difficulty controlling worry, anxiety/worry associated to restlessness and/or feeling keyed-up/On edge , easily fatigued , difficulty concentrating and/or mind going blank , irritability, muscle tension , and sleep disturbance difficulty falling asleep, Fear , and sense of dread and Fear of abandonment, Pattern of unstable and intense interpersonal relationships, Impulsivity, Affective instability, Feelings of emptiness, and Intense anger; for a period of 18+ mo, for most or all symptoms in the context of unable to identify significant stressors. Pt carries a diagnosis for Bipolar disorder per her medical chart. Pt started medication management with [facility] prescriber, Godfrey Esquivel, and reports the medication hasn't improved her sxs yet. Liz was referred to [facility] for OP services. Pt reports she's engage in therapy and utilize coping strategies to decrease her sxs. clinician reconnected pt with [facility] psychiatry services due to patient canceling her last appt and looking to reconnect with provider. clinician will be available if needed. Epigastric pain 08/21/2024 Assessment & Plan (08/21/2024 11:34 AM EDT): Patient with chronic epigastic abdominal pain, previously ordered h pylori test not performed, encouraged to get it done as soon as possible, patient wants a new gi referral, start PPI 2 times a day after performing h pylori test, er precautions reviewed Chronic left-sided low back pain with left-sided sciatica 08/15/2024 Assessment & Plan (08/15/2024 10:29 AM EDT): Mri done, follow pain management clinic, avoid heavy lifting, continue home remedies, follow up as needed Hospital discharge follow-up 11/24/2023 Assessment & Plan [...] 38.9 in adult 01/25/2023 Assessment & Plan (08/15/2024 10:27 AM EDT): Zepbound denied, will refer to bariatric surgery for gastric sleeve evaluation Assessment & Plan (06/07/2024 1:47 PM EST): [...] phentermine, side effects discussed, Bipolar disorder 07/19/2022 Assessment & Plan (07/24/2024 8:56 AM EDT): During IBH Consult Liz presenting with Abnormally elevated mood, Decreased need for sleep, and Other: racing thoughts, irritability/angry, marked lost of interest and feeling no pleasure, preferring to isolate herself from others, overeating/gaining weight, feeling fatigued and having difficult time concentrating and mood swings ; for a period of 18+ mo, for most or all symptoms in the context of unable to identify significant stressors. Liz carries a diagnosis for PTSD and Bipolar disorder per her medical chart. Today, patient reported feeling increase of sxs with no particular stressors associated. Liz used to see Oscar Fraser in the past; then she had one-time appointment with July for psychopharmacology services. Patient reports being out of her medication since then. She is scheduled with [facility] psych provider, Godfrey Esquivel, on 03/31 at 1pm. Pt reports feeling irritable most part of the time affecting her interpersonal relationships. She lives with her four children and partner. Finds support and comfort in her partner. clinician engaged patient with active/reflective listening. Reviewed and assessed for risk, current stressors and protective factors using open-ended questions. Explored activities to incorporate as part of self-care. Provided information for CB centers and [facility] helpline. clinician will provide follow-up BE. Pt will be referred for OP services. PTSD (post-traumatic stress disorder) 07/19/2022 Assessment & [...] be retiring, patient is referred to new [facility] psychiatric prescriber. Pt is aware that appointments will be via televisit and that provider willnot be an employee of [facility]. She gives permission to share [...] Topiramate 150 mg BID. Prescriptions sent to [facility] pharmacy for home delivery. Watch for [...] and she can call for intake. F/U wth me in 3-4 weeks. She agrees with [...] plan. Primary hypertension 06/23/2022 Assessment & Plan (08/15/2024 10:27 AM EDT): Controlled, continue low sodium diet and exercise as tolerated, keep bp log, target <140/90 Assessment & Plan (11/24/2023 1:10 PM EDT): [...] to her hands, will order emg Encounters * This document contains information received from the source organization and may not represent a complete record from that organization. Date Type Department Care Team Description 10/09/2024 11:15 AM EDT Telemedicine [facility] [address] [place] [address] Timur Ward MD Urinary tract infection without hematuria, site unspecified (Primary Dx); Epigastric pain 10/09/2024 Travel 09/28/2024 Orders Only [facility] MED[facility] [address] [place] [phone] Timur Ward MD Class 2 severe obesity due to excess calories with serious comorbidity and body mass index (BMI) of 38.0 to 38.9 in adult (CMS/HCC) (Primary Dx) 09/26/2024 Telephone [facility] [address] [place] [phone] Timur Ward MD FYI 09/10/2024 Population Health Risk Score [facility] () Department [address] [place] [place] [phone] Provider, Population Health Generic 08/21/2024 10:15 AM EDT Telemedicine [facility] [address] [place] [address] Timur Ward MD Bloating (Primary Dx); Epigastric pain 08/21/2024 Travel 08/21/2024 Telephone [facility] [address] [place] [phone] Timur Ward MD 08/15/2024 10:15 AM EDT Telemedicine [facility] [address] [place] [address] Timur Ward MD Primary hypertension (Primary Dx); Class 2 severe obesity due to excess calories with serious comorbidity and body mass index (BMI) of 38.0 to 38.9 in adult (CMS/HCC); Chronic left-sided low back pain with left-sided sciatica 08/15/2024 Travel 08/14/2024 Telephone [facility] [address] [place] [address] Timur Ward MD chart prep 08/07/2024 Telephone [facility] [address] [place], [place] [phone] Timur Ward MD Prior Authorization 07/30/2024 1:30 PM EDT Office Visit [facility] [address] [place] [address] Timur Ward MD Class 2 severe obesity due to excess calories with serious comorbidity and body mass index (BMI) of 38.0 to 38.9 in adult (CMS/[facility]) (Primary Dx) 07/30/2024 Travel 07/30/2024 Telephone [facility] [address], [place] [phone] Timur Ward MD Switch appoinment 07/23/2024 Travel from Last 3 Months Immunizations Immunization Administration Dates Next Due DTaP 08/14/1998, 3,10/14/1992,1990 Hep B, Adolescent or Pediatric 01/08/2003,2002,07/15/1995 Hib ([facility]) 08/14/1992,1990 IPV 07/15/1995 Influenza injectable quadriv alent IIV4 with preservative 06/23/2022,03/15/2016 Influenza injectable quadriv alent preservative free 01/25/2023,04/03/2018 Influenza, IIV3, injectable 07/10/2015, 2,03/19/2011 MMR 07/15/1995,10/14/1992 OPV, Trivalent 04/15/1993, 3,1990,1990 TD (adult), 2 Lf tetanus [...] Answer Date Recorded Patient Health Questionnaire-9 Score 19 09/14/2024 Patient Health Questionnaire-9 Score 19 09/14/2024 Last PHQ-9: Questionnaire Data Not on file 0 09/14/2024 Housing Stability Answer Date Recorded What is [...] Answer Date Recorded Patient Health Questionnaire-2 Score 6 09/14/2024 Internet Access Answer Date Recorded Internet Access [...] Sign Reading Time Taken Comments Blood Pressure 128/83 08/15/2024 10:26 AM EDT Pulse 72 07/30/2024 1:25 PM EDT Temperature 36.8 ??C (98.2 ??F) 07/30/2024 1:25 PM ED T Respiratory Rate 16 07/30/2024 1:25 PM EDT Oxygen Saturation 98% 06/29/2024 1:17 PM EST Inhaled Oxygen Concentration - - Weight 107 kg (236 lb) 07/30/2024 1:25 PM EDT Height 157.5 cm (5' 2 ) 07/30/2024 1:25 PM EDT Body Mass Index 43.16 07/30/2024 1:25 PM EDT Plan of Treatment Health Maintenance Due Date Last Done Comments Family Planning (PISQ) 2005 Pneumococcal Vaccine: Pediatrics (0 to 5 Years) and At-Risk Patients (6 to 49) Years) (1 of 2 - PCV) 2009 Pap Smear 2011 Cervical Cancer Screening 2020 HPV/Cotest 2020 SDOH Screening 08/11/2023 08/10/2022 COVID-19 Vaccine ( season) 2024 Influenza Vaccine (#1) 2024 , 06/23/2022, 04/03/2018, Additional history exists Disability Screening 07/04/2025 07/04/2024 Alcohol/Substance Use Screening 07/30/2025 07/30/2024 Tobacco Screening 08/13/2025 08/13/2024 Depression Screening 09/14/2025 09/14/2024, 09/15/19 25 Lipid Panel 06/23/2027 06/23/2022, 12/04/2021 DTaP/Tdap/Td Vaccines (8 - Td or Tdap) 04/03/2028 04/03/2018, 07/10/2015, 02/10/2012, Additional history exists Zoster Vaccines (1 of 2) 2040 RSV Patients and Patients Aged 60 years or older (1 - 1-dose 75+ series) 2065 HIB Vaccines Completed 08/14/1992, 1990 IPV Vaccines Completed 07/15/1995, 12/05/1992, 10/14/1992, Additional history exists Hepatitis B Vaccines Completed 01/08/2003, 08/02/2002, 07/15/1995 HIV Screening Completed 06/23/2022, 08/25/2020 Hepatitis C Screening Completed 06/14/2024 , 01/25/2023, 06/23/2022, Additional history exists HPV Vaccines Aged Out No longer eligi ble based on patient's age to complete this topic Hepatitis A Vaccines Aged Out No long er eligible based on patient's age to complete this topic Meningococcal B Vaccine Aged Out No l onger eligible based on patient's age to complete [...] Procedure Name Priority Date/Time Associated Diagnosis Comments HEPATITIS C AB W/REFL TO HCV RNA, QN, PCR Routine 06/14/2024 11:53 AM EST Elevated liver enzymes HIV 1 RNA, QN PCR W/RFL JAXON (RTI,PI,INTEGRASE) Routine 06/23/2022 11:17 AM EST Primary hypertension LIPID PANEL, STANDARD Routine 06/23/2022 11:17 AM EST Primary hypertension from Last 3 Months or Most Recently Relevant to Health Maintenance Results * Hepatitis C Antibody with Reflex to HCV, RNA, Quantitative, Real-Time PCR (06/14/2024 11:53 AM EST) Hepatitis C Antibody Nonreactive Nonreactive [facility] Comment:Antibodies to HCV no t detected; does not exclude early acuteHCV infection. Blood Venous blood specimen / Unknown 06/14/2024 11:53 AM EST 06/14/2024 1:58 PM EST us Rupinder Martin MD LAB BLOOD ORDERABLES Final Re sult [facility] [address] [place] [phone] * HIV-1 RNA, Quantitative, Real-Time PCR with Reflex to Genotype (RTI, PI, Integrase) (06/23/2022 11:17 AM EST) HIV 1 RNA, QN PCR NOT DETECTED copies/mL [facility], HIV 1 RNA, QN PCR NOT DETECTED Log copies/mL [facility], Comment: REFERENCE RANGE: NOT DETECTED copies/mL ?NOT DETECTED ??Log copies/mL This test was performed using Real-Time Polymerase Chain Reaction. Reportable range is 20 to 10,000,000 copies/mL (1.30-7.00 Log copies/mL). 06/23/2022 11:1 7 AM EST 06/23/2022 11:17 AM EST Narrative [facility] - 06/26/2022 9:45 PM EST FASTING:NO FASTING: NO us Timur Kumar MD LAB BLOOD ORDERABL ES Final Result [facility] [address], [place] [address] [facility], [address] [place] [address] * (ABNORMAL) Lipid Panel, Standard (06/23/2022 11:17 AM EST) Cholesterol, Total 171 <200 mg/dL [facility] [place] [facility] HDL Cholesterol 38(L) > OR = 50 mg/dL [facility] [place] [facility] Triglycerides 132 <150 mg/dL [facility] [place] [facility] LDL Cholesterol 108(H) mg/dL (calc) [facility] Comment: Reference range: <100 Desirable range <100 mg/dL for primary prevention; ?? <70 mg/dL for patients with CHD or diabetic patients with > or = 2 CHD risk factors. LDL-C is now calculated using the Sim-Mckinley calculation, which is a validated novel method providing better accuracy than the Friedewald equation in the estimation of LDL-C. Sim SS et al. DANIEL. 2013;310(19): 5122-6336 (http://education.Taptu/faq/MIY127) Chol/HDLC Ratio 4.5 <5.0 (calc) [facility] [place] [facility] Non-HDL Cholesterol 133(H) <130 mg/dL (calc) [facility] Comment: For patients with diabetes plus 1 major ASCVD risk factor, treating to a non-HDL-C goal of <100 mg/dL (LDL-C of <70 mg/dL) is considered a therapeutic option. Blood Venous blood specimen / Unknown 06/23/2022 11:17 AM EST 06/23/2022 11:17 AM EST Narrative [facility] - 06/26/2022 9:45 PM EST FASTING:NO FASTING: NO us Timur Kumar MD LAB BLOOD ORDERABL ES Final Result [facility] [address] [place] [address], [place] [address] [facility] [place] [facility] [address] [facility], ([address]) [place] [phone] from Last 3 Months or Most Recently Relevant to Health Maintenance Insurance [employer] C[employer] * Guarantor: [employer] Account Type Relation to Patient Date of Phone Billing Address Third Republican Liability Other [place] [address] [employer] Care Teams 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
[2024-10-10 14:26] LABS: MANUAL DIFF FLAG NO
[2024-10-10 14:36] LABS: Basophils Percent Auto 0.3 % (0-2); Eosinophils Absolute Auto 0.2 X10*3/uL (0.0-0.4); Eosinophils Percent Auto 2.1 % (0-4); Hematocrit 37.5 % (37.0-47.0); Imm Gran Abs Auto 0.06 X10*3/uL (0.00-0.03); Imm Gran Pct Auto 0.5 % (0.0-0.4); Lymphocytes Absolute Auto 2.9 X10*3/uL (1.2-4.9); Lymphocytes Percent Auto 25.6 % (20-40); Mean Corpuscular Hemoglobin 26.6 pg (27.0-33.0); Mean Corpuscular Volume 83.1 fL (80.0-98.0); Mean Platelet Volume 10.9 fL (9.4-12.3); Monocytes Absolute Auto 0.6 X10*3/uL (0.1-1.2); Monocytes Percent Auto 5.2 % (2-11); Neutrophils Absolute Auto 7.6 x10*3/uL (2.0-8.3); Neutrophils Percent Auto 66.3 % (45-73); Platelet Count 239 X10*3/uL (160-400); Red Blood Count 4.51 X10*6/uL (4.20-5.50); Red Cell Distribution Width 14.6 % (11.0-16.0); White Blood Count 11.4 X10*3/uL (4.8-10.8)
[2024-10-10 14:51] LABS: Alanine Aminotransferase 41 U/L (0-31); Albumin Level 4.5 g/dL (3.5-5.0); Alkaline Phosphatase 60 U/L (39-117); Anion Gap 14 (12-20); Aspartate Amino Transferase 28 U/L (5-31); Bilirubin Total 0.2 mg/dL (0.0-1.0); Blood Urea Nitrogen 13 mg/dL (9-16); Calcium 9.2 mg/dL (8.4-10.2); Carbon Dioxide 21 mmol/L (22-29); Chloride 106 mmol/L (96-108); Estimated Glomerular Filt Rate > 60; Glucose Random 89 mg/dL (60-115); Sodium 137 mmol/L (135-145); Total Protein 7.7 g/dL (6.5-8.0)
== END 2024-10-10 10:34 | disposition home or self-care (01) ==
LOC: HO.CHCLDS 10:33
PROVIDERS: Visit Provider Internal Medicine
DX: N39.0 Urinary tract infection, site not specified (principal)
CPT/HCPCS: 36415; 80053; 85025

== ENCOUNTER 2025-01-21 12:13 | Outpatient (REF) | payer OTHER, SELFPAY ==
--- NOTE | ~2025-01-21 | XR_ITS ---
EXAMINATION: XR CERVICAL SPINE CLINICAL INFORMATION: PAIN COMPARISON: November 18, 2020 TECHNIQUE: AP oblique lateral and atlantoodontoid views FINDINGS: Craniocervical junction is intact. No acute cortical disruption or gross malalignment. Small cervical rib, right C7. No lytic or blastic lesions. There are neuroforamina are normal. Upper airway is patent. XR/XR cervical spine 5V IMPRESSION: No acute fracture or listhesis. Small right-sided cervical rib, C7.. Electronically signed by: Zach Judd MD 01/21/2025 12:57 PM EDT
--- NOTE | ~2025-01-21 | XR_ITS ---
EXAMINATION: XR SHOULDER, LEFT CLINICAL INFORMATION: pain COMPARISON: Correlated to chest x-ray dated February 08, 2020 TECHNIQUE: AP external rotation, Grashey, scapular Y, and axillary views of the left shoulder. FINDINGS: No acute cortical disruption or malalignment. No lytic or blastic lesions. No soft tissue calcifications. XR/XR shoulder LT min 2V IMPRESSION: Normal x-ray, left shoulder. Electronically signed by: Zach Judd MD 01/21/2025 12:58 PM EDT
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
--- OUTSIDE RECORDS SUMMARY | 2025-01-21 14:40 | XMS_ITS | Encounter Summary ---
Author Organization [employer] Address [address] [facility] 7 [place] [address] Care Team Providers Care Digital Intern Name Role Phone Timur Ward MD Primary Care Prov ider Reason for Visit * Reason Onset Date Comments Results 05/12/2023 Encounter Details Date Type Department Care Team ([facility] Contact Info) Description 05/12/2023 Telephone [facility]S [address] [place], [place] [phone] Timur Ward MD [address] [place] [address] Results Social History Tobacco Use Types Packs/Day [...] results: Lab Date when done: 05/05/23 Facility: [facility] Labs documented in this encounter Plan of Treatment Upcoming Encounters Date Type Department Care Team (Late st Contact Info) Description 02/12/2025 9:30 AM EDT Telemedicine [facility] MED [facility] PEDS [address] [place], [place] [phone] Timur Ward MD [address] [place], [place] [phone] documented as of this encounter Visit Diagnoses Not on filedocumented in this encounter Additional Health Concerns Assessment Noted Time PHQ-9 Depression Total Score: 13 023 9:45 AM EDT documented as of this encounter Care Teams Digital Intern Relationship Specialty Start Date End Date Timur Ward MD [address] [place] [address] PCP - General Internal Medicine 10/09/19 documented as of this encounter
--- OUTSIDE RECORDS SUMMARY | 2025-01-21 14:40 | XMS_ITS | Encounter Summary ---
Author Organization [employer] Address [address] [facility] 7 [place] [address] Care Team Providers Care Shop Cooper Name Role Phone Timur Ward MD Primary Care Prov ider Reason for Visit * Reason Onset Date Comments FYI 09/26/2024 Encounter Details Date Type Department Care Team ([facility] st Contact Info) Description 09/26/2024 Telephone [facility] [address] [place] [address] Timur Ward MD [address] [place] [address] FYI Social History Tobacco Use Types Packs/Day Years [...] Telephone Encounter - July Mcgraw RN - 10/01/2024 12:33 PM EDT Images from the original note were not included. Triage call regarding Pt portal message below. Pt reports blood in urine since 09/29/24 . Pt reportsslight burning with urination and bilateral flank pain for several days. Pt reports thought it could be monthly cycle but tampon used was clear and still blood in the urine appeared. Pt is advised tocome to [facility] today open till 8pm for provider to see Pt. Pt agrees with this disposition and plan. Pt is encouraged to drink more liquids today and agrees. Protocol Used: Urine - Blood In (Adult) Protocol-Based Disposition: See in Office or Video Visit Today Positive Triage Questions: * Side (flank) or back pain present * Pain or burning with passing urine (urination) * Patient wants to be seen * All higher-acuity triage questions were negative Care Advice Discussed: * Drink Extra Fluids * Reasons To Call Back - Fever or pain occurs - You become worse Liz Lamar [facility] Med & Peds Nurses (supporting Timur Kumar MD)1 hour ago (11:05 AM) I been having kidney pain for the last few days, but since Tuesday I notice blood every time I urine and pain gets worse. I thought for a minute was my period, but is not. Right now I'm in my morning routine. And I just pee and blood when I pee. * Telephone Encounter - Wing Edelmira RN - 09/26/2024 3:05 PM EDT Please advise on denied weight loss medication next steps. * Telephone Encounter - Rupesh Sanders - 09/26/2024 2:50 PM EDT Tc from pt whom was notified that their weight loss medication was denied by insurance. Upon contacting the insurance provider, it was explained that the denial was due to missing or incomplete diagnostic information. The pt was advised to have the prescribing provider to contact insurance. documented in this encounter Plan of Treatment Upcoming Encounters Date Type Department Care Team (Late st Contact Info) Description 02/12/2025 9:30 AM EDT Telemedicine [facility] MED & PEDS [address] [place] [address] Timur Ward MD [address] [place] [address] documented as of this encounter Visit Diagnoses Not on filedocumented in this encounter Additional Health Concerns Assessment Noted Time PHQ-9 Depression Total Score: 19 025 12:29 PM EDT documented as of this encounter Care Teams Shop Cooper Relationship Specialty Start Date End Date Timur Ward MD [address] [place] [address] PCP - General Internal Medicine 10/09/19 documented as of this encounter
--- OUTSIDE RECORDS SUMMARY | 2025-01-21 14:40 | XMS_ITS | Clinical Summary ---
Author Organization [facility] Address [address] [place] [address] Care Team Providers Care Spool Winder Name Role Phone Unavailable Primary Care Provider [...] tabletIndicatio ns:Bipolar affective disorder, currently depressed, moderate (CMS & HHS-HCC) Take 1 Tablet by mouth once daily for 15 days 15 Tablet 03/15/2024 Active QUEtiapine (SEROQUEL) 50 mg tabletIndicatio ns:Bipolar affective disorder, currently depressed, moderate (CMS & HHS-HCC) Take 1 Tablet by mouth nightly at [...] (BMI) of 38.0 to 38.9 in adult ([facility]) 01/25/2023 Overview (03/15/2024): Last Assessment & Plan: Will start on phentermine, side effects discussed, Bipolar affective disorder, currently depressed, moderate ([facility]) 07/19/2022 Overview (03/15/2024): Patient presents with significant [...] be retiring, patient is referred to new [facility] psychiatric prescriber. Pt is aware that appointments will be via televisit and that provider willnot be an employee of [facility]. She gives permission to share PHI. [...] Date UTI (urinary tract infection) 02/10/2023 04/16/2024 Immunizations Immunization Administration Dates Next Due DTAP (Infanrix) 08/14/1998, 3,10/14/1992,1990 Flu, Multi Dose 0.5 ML 06/23/2022,03/15/2016 Flu, Preservative Free 01/25/2023,04/03/2018 HEP B, PED/ADOL (NAUCZUO-G-KNGK/RECOMBIVAX-PEDS) 01/08/2003,08/02/2002,07/15/1995 Hib (HbOC) 08/14/1992,1990 INFLUENZA, SEASONAL, INJECTABLE 07/10/2015,02/09,03/19/2011 IPV (IPOL) 07/15/1995 MMR (MMR II/Priorix) 07/15/1995,10/14/1992 OPV, Trivalent 04/15/1993, 3,1990,1990 TDAP 04/03/2018,07/10/2015,02/10/2012 Td (adult),2 Lf tetanus toxo id (TDVAX), preservative free 08/02/2002 Family History Medical History Relation Name Comments Diabetes Father Hypertension Father Relation Name Status Comments Daughter 2 daughters, He alty Father Alive Mother Son 2 sons healthy Social History Tobacco Use Types Packs/Day Years Used Date Smoking Tobacco: Every Day Cigarettes 1 16.7 Started: 2008 Smokeless Tobacco: Never Tobacco Cessation:Ready [...] Health Maintenance Due Date Last Done Comments Anxiety Screening 1990 Depression Monitoring 1990 HPV Screening 1990 Pap + HPV 1990 Relationship Safety Screening/Counseling 2005 Imm-Pneumococcal (1 of 2 - PCV) 2009 Cervical Cancer Screening 2011 Pap Smear 2011 Diabetes Screening 12/04/2022 12/04/2021 Lipid Screening 06/23/2023 06/23/2022 Alcohol and Drug Screen 05/16/2024 [id number] ( - season) 2025 Imm-Influenza (#1) 2025 01/25/2023, 0 06/23/2022, 04/03/2018, Additional history exists Tobacco Cessation Counseling (#1) 03/15/2025 Imm-DTaP/Tdap/Td (8 - Td or Tdap) 04/03/2028 04/03/2018, 07/10/2015, 02/10/2012, Additional history exists Imm-Hepatitis B Completed 01/08/2003, 07/15, 07/15/1995 HIV Screening Completed 08/25/2020 Hepatitis C Screening Completed 01/25/2023 Cervical Ablation/Cold-Knife Conization Discontinued Cervical Cryotherapy Discontinued Colposcopy Discontinued Endometrial Biopsy Discontinued Excision/Leep Discontinued HPV Genotyping Discontinued Vaginal Pap Discontinued Vulvoscopy Discontinued Insurance [place] MEDICAID Member Subscriber Plan / Payer (Ef fective 2023-Present) Name:Liz Haddad Relation to Subscriber:Self Name:Liz Haddad Payer ID:[id number] Group ID:Not on file Type:Medicaid Address: [address] [employer]
--- OUTSIDE RECORDS SUMMARY | 2025-01-21 14:40 | XMS_ITS | Encounter Summary ---
Author Organization [employer] Address [address] [place] [address] 7 [place] [address] Care Team Providers Care Edge Bander Hand Name Role Phone Timur Ward MD Primary Care Prov ider Reason for Visit * Reason Comments Med Change Request Encounter Details Date Type Department Care Team ([facility] Contact Info) Description 06/23/2022 Refill [facility] MED & PEDS [address] [place], [place] [phone] Timur Ward MD [address] [place] [address] Primary hypertension Social History Tobacco Use Types [...] Upcoming Encounters Date Type Department Care Team ([facility] Contact Info) Description 02/12/2025 9:30 AM EDT Telemedicine [facility] MED & PEDS [address] [place] [address] Timur Ward MD [address] [place] [address] documented as of this encounter Visit Diagnoses Diagnosis Primary hypertension Unspecified essential hypertension documented in this encounter Care Teams Edge Bander Hand Relationship Specialty Start Date End Date Timur Ward MD [address] [place] [address] PCP - General Internal Medicine 10/09/19 documented as of this encounter
--- OUTSIDE RECORDS SUMMARY | 2025-01-21 14:40 | XMS_ITS | Encounter Summary ---
Author Organization [employer] Address [address] [place] [address] Care Team Providers Care Specifications Checker Name Role Phone Timur Ward MD Primary Care Prov ider Encounter Details Date Type Department Care Team ([facility] st Contact Info) Description 01/11/2025 Orders Only [facility] CHC MED & PEDS [address] [place] [address] ProviderDonna MD Social History Tobacco Use Types Packs/Day Years Used Date Smoking Tobacco: Every Day Cigarettes Passive Smoke Exposure: Never Smokeless Tobacco: Never Alcohol Use Standard Drinks/Week Comments Never 0 (1 standard drink = 0.6 oz pur e alcohol) Depression Answer Date Recorded Patient Health Questionnaire-9 Score 09/14/2024 Patient Health Questionnaire-9 Score 09/14/2024 Last PHQ-9: Questionnaire Data Not on [...] Info) Description 02/12/2025 9:30 AM EDT Telemedicine [facility] MED & PEDS [address] [place] [address] Timur Ward MD [address] [place] [address] documented as of this encounter Procedures Procedure Name Priority Date/Time Associated Diagnosis Comments XR CERVICAL SPINE 5 VIEW Routine 01/21/2025 12:47 PM EDT SURGICAL PATHOLOGY Routine 12/13/2024 3: 13 PM EDT documented in this encounter Results * XR Cervical Spine 5 View (01/21/2025 12:47 PM EDT) Anatomical Region Laterality Modality Spine, C-spine Radiographic Nely ging 01/21/2025 12:4 7 PM EDT Narrative 01/21/2025 1:00 PM EDT [facility] [address] [place] [address] XRay Report Signed Patient: Liz Haddad MR #: [id number] : 1990 Acct:[id number] Age/Sex: 34 / F ADM Date: 01/21/25 [facility] Attending Dr: Amparo López MD Ordering Physician: Amparo Che MD Date of Service: 01/21/25 Procedure(s): XR cervical spine 5V Accession Number(s): [id number] cc: Amparo Che MD Reason for Exam: PAIN EXAMINATION: XR CERVICAL SPINE CLINICAL INFORMATION: PAIN COMPARISON: November 18, 2020 TECHNIQUE: AP oblique lateral and atlantoodontoid views FINDINGS: Craniocervical junction is intact. No acute cortical disruption or gross malalignment. Small cervical rib, right C7. No lytic or blastic lesions. There are neuroforamina are normal. Upper airway is patent. XR/XR cervical spine 5V IMPRESSION: No acute fracture or listhesis. Small right-sided cervical rib, C7.. Electronically signed by: Zach Judd MD 01/21/2025 12:57 PM EDT RP Dictated By: Zach Singh MD Signed By: <Electronically signed by Zach Slaughter MD in OV> 01/21/25 1257 DD/ 1247 TD/TT: 01/21/25 1247 Meteorological Observer: Procedure Note Donotuseinterpreter, Image - 01/21/[address] [address] XRay Report Signed Patient: Liz HaddadMR #: [id number] : 1990Acct:[id number] Age/Sex: 34 / FADM Date: 01/21/25 Loc: HO.HHCX Attending Dr: Amparo López MD Ordering Physician: Amparo Che MD Date of Service: 01/21/25 Procedure(s): XR cervical spine 5V Accession Number(s): [id number] cc: Amparo Che MD Reason for Exam: PAIN EXAMINATION: XR CERVICAL SPINE CLINICAL INFORMATION: PAIN COMPARISON: November 18, 2020 TECHNIQUE: AP oblique lateral and atlantoodontoid views FINDINGS: Craniocervical junction is intact. No acute cortical disruption or gross malalignment. Small cervical rib, right C7. No lytic or blastic lesions. There are neuroforamina are normal. Upper airway is patent. XR/XR cervical spine 5V IMPRESSION: No acute fracture or listhesis. Small right-sided cervical rib, C7.. Electronically signed by: Zach Judd MD 01/21/2025 12:57 PM EDT RP Dictated By: Zach Singh MD Signed By: <Electronically signed by Zach Slaughter MDin OV> 01/21/25 1257 DD/ 1247 TD/TT: 01/21/25 1247 Meteorological Observer: us Amparo López MD IMG XR PROCEDURES Richard ozzie Result - Final * Surgical Pathology (12/13/2024 3:13 PM EDT) us Historical Provider LAB PATHOLOGY ORDERABLES Final Result documented in this encounter Visit Diagnoses Not on filedocumented in this encounter Additional Health Concerns Assessment Noted Time PHQ-9 Depression Total Score: 19 025 12:29 PM EDT documented as of this encounter Care Teams Specifications Checker Relationship Specialty Start Date End Date Timur Ward MD [address] [place] [address] PCP - General Internal Medicine 10/09/19 documented as of this encounter
--- OUTSIDE RECORDS SUMMARY | 2025-01-21 14:40 | XMS_ITS | Encounter Summary ---
Author Organization [employer] Address [address] 7[address] [place] [address] Care Team Providers Care Baby Counselor Name Role Phone Timur Wrad MD Primary Care Prov ider Encounter Details Date Type Department Care Team (Latest Contact Info) Description 01/21/2025 Travel Social History Tobacco Use Types Packs/Day [...] Info) Description 02/12/2025 9:30 AM EDT Telemedicine [facility] MED & PEDS [address] [place] [address] Timur Ward MD [address] [place] [address] documented as of this encounter Visit Diagnoses Not on filedocumented in this encounter Additional Health Concerns Assessment Noted Time PHQ-9 Depression Total Score: 19 025 12:29 PM EDT documented as of this encounter Care Teams Baby Counselor Relationship Specialty Start Date End Date Timur Wrad MD [address] [place] [address] PCP - General Internal Medicine 10/09/19 documented as of this encounter
--- OUTSIDE RECORDS SUMMARY | 2025-01-21 14:40 | XMS_ITS | Encounter Summary ---
Author Organization [employer] Address [address] [facility] 7 [place] [address] Care Team Providers Care Motel Front Desk Clerk Name Role Phone Timur Ward MD Primary Care Prov ider Reason for Visit * Reason Onset Date Comments Appointment Request 05/12/2023 Encounter Details Date Type Department Care Team ([facility] Contact Info) Description 05/12/2023 Telephone [facility] CHC MED & PEDS [address] [place], [place] [phone] Timur Ward MD [address] [place] [address] Appointment Request Social History Tobacco Use Types [...] Miscellaneous Notes * Telephone Encounter - Lenny Elan - 05/12/2023 11:39 AM EST Tc from pt looking to schedule an appt with Oscar Fraser. Please contact pt at [phone]. documented in this encounter Plan of Treatment Upcoming Encounters Date Type Department Care Team (Late st Contact Info) Description 02/12/2025 9:30 AM EDT Telemedicine [facility] CHC MED & PEDS [address] [place] [address] Timur Ward MD [address] [place] [address] documented as of this encounter Visit Diagnoses Not on filedocumented in this encounter Additional Health Concerns Assessment Noted Time PHQ-9 Depression Total Score: 13 023 9:45 AM EDT documented as of this encounter Care Teams Motel Front Desk Clerk Relationship Specialty Start Date End Date Timur Ward MD [address] [place] [address] PCP - General Internal Medicine 10/09/19 documented as of this encounter
--- OUTSIDE RECORDS SUMMARY | 2025-01-21 14:40 | XMS_ITS | Clinical Summary ---
Author Organization [employer] Address [address] [facility] 7t [place] [address] Care Team Providers Care Emergency Specialist Name Role Phone Timur Ward MD Primary Care Prov ider Allergies Active Allergy Reactions Criticality Noted Date Comments Ibuprofen 01/21/2025 Medications * This document contains information received from the source organization and may not represent a complete record from that organization. lisinopril 40 MG tabletIndicatio ns:Primary hypertension Take 1 tablet (40 mg) by mouth Once per day. 90 tablet 3 11/10/19 25 026 Active ARIPiprazole (Abilify) 15 MG tabletIndicatio ns:Bipolar affective disorder, currently depressed, moderate (CMS/HCC) Take 1 tablet (15 mg) by mouth Once per day. 30 tablet 1 11/10/19 25 Active hydrOXYzine pamoate (Vistaril) 25 MG capsuleIndicati ons:Bipolar affective disorder, currently depressed, moderate (CMS/HCC) Take 1 capsule (25 mg) by mouth if needed in the morning and at bedtime for anxiety. 30 capsule 11/10/19 25 Active pantoprazole (Protonix) 20 MG EC tablet Take 1 tablet (20 mg) by mouth 2 times daily. Do not crush, chew, or split. 60 tablet 11 11/10/19 25 026 Active nicotine (Nicoderm CQ) 21 MG/24HR patchIndication s:Primary hypertension,Sm oker Place 1 patch on the skin 1 (one) time each day at the same time. 30 patch 1 11/10/19 25 Active lidocaine (Lidoderm) 5 % patch Apply 1 patch topically Once per day. Remove & discard patch within 12 hours or as directed by MD. 30 patch 11/10/19 25 Active cyclobenzaprine (Flexeril) 10 MG tabletIndicatio ns:Acute sprain of ligament of neck, initial encounter,Trape zius muscle strain, left, initial encounter One tab po at bedtime prn pain of muscles, do not drive with medicaion 15 tablet 01/04/20 25 Active predniSONE (Deltasone) 20 MG tabletIndicatio ns:Acute pain of left shoulder,Neck pain Take 2 tablets (40 mg) by mouth Once per day for 5 days. 10 tablet 01/22/20 25 025 Active methocarbamol (Robaxin) 750 MG tabletIndicatio ns:Acute pain of left shoulder,Neck pain Take 1 tablet (750 mg) by mouth 4 times daily for 10 days. 40 tablet 01/22/20 25 025 Active acetaminophen (Tylenol 8 Hour) 650 MG ER tabletIndicatio ns:Acute pain of left shoulder,Neck pain Take 1 tablet (650 mg) by mouth every 8 (eight) hours if needed for mild pain for up to 10 days. Do not crush, chew, or split. 30 tablet 01/22/20 25 025 Active Acetaminophen 500 MG capsule Take 1 capsule orally tid prn pain 90 capsule 3 06/29/19 25 025 Discontinued(Re order (will not trigger notification to Pharmacy)) tiZANidine (Zanaflex) 4 MG tablet Take 1 tablet (4 mg) by mouth every 8 (eight) hours if needed for muscle spasms for up to 10 days. 30 tablet 11/10/19 25 025 Discontinued Acetaminophen 500 MG capsuleIndicati ons:Acute sprain of ligament of neck, initial encounter,Trape zius muscle strain, left, initial encounter Take 1 capsule orally tid prn pain 90 capsule 3 01/04/20 25 025 Discontinued Hospital, Clinic, or Other Facility Administered Medication Ordered Dose Route Frequency Start Date End Date Status ibuprofen tablet 400 mgIndications:Chronic migraine without aura without status migrainosus, not intractable 400 mg PO Once 12/16/2022 Active Active Problems Problem Noted Date Diagnosed Date Acute pain of left shoulder 01/21/2025 Neck pain 01/21/2025 Generalized anxiety disorder 09/14/2024 Assessment & Plan [...] medical chart. Pt started medication management with [facility] prescriber, Godfrey Esquivel, and reports the medication hasn't improved her sxs yet. Liz was referred to [facility] for OP services. Pt reports she's engage in therapy and utilize coping strategies to decrease her sxs. clinician reconnected pt with [facility] psychiatry services due to patient canceling her last appt and looking to reconnect with provider. clinician will be available if needed. Epigastric pain 08/21/2024 Assessment & Plan (11/09/2024 9:57 AM EDT): Patient continues with fluctuating abdominal pain, h.pylori testing not performed, new GI appointment scheduled, follow up as needed after GI evalaution Assessment & Plan (10/26/2024 1:47 PM EDT): Will send dicyclomine, pending h pylori testing, will refer to GI, she wants to see a different one, er precautions reviewed Assessment & Plan (08/21/2024 11:34 AM EDT): [...] 38.9 in adult 01/25/2023 Assessment & Plan (11/09/2024 9:57 AM EDT): Pending bariatric surgery evalaution, continue low calorie diet and exercise as tolerated Assessment & Plan (08/15/2024 10:27 AM EDT): [...] medication since then. She is scheduled with [facility] psych provider, Godfrey Esquivel, on 08/13 at 1pm. Pt reports feeling irritable most part of the time affecting her interpersonal relationships. She lives with her four children and partner. Finds support and comfort in her partner. clinician engaged patient with active/reflective listening. Reviewed and assessed for risk, current stressors and protective factors using open-ended questions. Explored activities to incorporate as part of self-care. Provided information for CB centers and [facility] helpline. clinician will provide follow-up BE. Pt [...] retiring, patient is referred to new [facility] psychiatric prescriber. Pt is aware that appointments will be via televisit and that provider willnot be an employee of [facility]. She gives permission to share [...] Topiramate 150 mg BID. Prescriptions sent to [facility] pharmacy for home delivery. Watch for [...] plan. Primary hypertension 06/23/2022 Assessment & Plan (01/21/2025 2:05 PM EDT): Patient did not took her blood pressure medication today, I advised to take her medication every day without missing any dose, I encouraged low-sodium diet and follow-up with PCP Assessment & Plan (08/15/2024 10:27 AM EDT): [...] organization. Date Type Department Care Team Description 01/21/2025 11:20 AM EDT Office Visit [facility] [address] [place] [address] Amparo Che MD Primary hypertension (Primary Dx); Acute pain of left shoulder; Neck pain 01/21/2025 Travel 01/11/2025 Orders Only [facility] MED & PEDS [address] [place] [address] Donna Correia MD 01/03/2025 4:00 PM EDT Office Visit [facility] [address] [address] Liz Bowen MD Fall from non-moving motorized mobility scooter, initial encounter (Primary Dx); Acute sprain of ligament of neck, initial encounter; Trapezius muscle strain, left, initial encounter 01/03/2025 Travel 11/09/2024 8:45 AM EDT Telemedicine [facility] MED & PEDS [address] [place] [address] Timur Ward MD Epigastric pain (Primary Dx); Primary hypertension; Bipolar affective disorder, currently depressed, moderate (CMS/[facility]); Smoker; Class 2 severe obesity due to excess calories with serious comorbidity and body mass index (BMI) of 38.0 to 38.9 in adult (CMS/HCC) 11/09/2024 Travel from Last 3 Months Immunizations Immunization [...] oz) 01/21/2025 10:55 A M EDT Height 157.5 cm (5' 2 ) 07/30/2024 1:25 PM EDT Body Mass Index 42.54 07/30/2024 1:25 PM EDT Plan of Treatment Upcoming Encounters Date Type Department Care Team (Late st Contact Info) Description 02/12/2025 9:30 AM EDT Telemedicine [facility] MED & PEDS [address] [place] [address] MagallonTimur Ward MD [address] [place] [address] Health Maintenance Due Date Last Done Comments Family Planning (PISQ) 2005 HPV Vaccines (1 - 3-dose series) 2005 Pneumococcal Vaccine: Pediatrics (0 to 5 Years) and At-Risk Patients (6 to 49) Years (1 of 2 - PCV) 2009 Pap Smear 2011 Cervical Cancer Screening 2020 HPV/Cotest 2020 SDOH Screening 08/11/2023 08/10/2022 COVID-19 Vaccine ( season) 2025 Influenza Vaccine (#1) 2025 , 06/23/2022, 04/03/2018, Additional history exists Depression Monitoring 03/17/2025 09/14/2024, 025 Disability Screening 07/04/2025 07/04/2024 Alcohol/Substance Use Screening 07/30/2025 07/30/2024 Tobacco Screening 01/03/2026 01/03/2025 Lipid Panel 06/23/2027 06/23/2022, 12/04/2021 DTaP/Tdap/Td Vaccines [...] 06/14/2024 , 01/25/2023, 06/23/2022, Additional history exists Hepatitis A Vaccines Aged Out No long [...] Comments XR CERVICAL SPINE 5 VIEW Routine 025 12:47 PM EDT XR SHOULDER 2+ VIEWS LEFT Routine 01/21/2025 12:47 PM EDT Acute pain of left shoulder SURGICAL PATHOLOGY Routine 12/13/2024 3: 13 PM EDT AMB REFERRAL TO GASTROENTEROLOGY Routine 12/13/2024 Epigastric pain HEPATITIS C AB W/REFL TO HCV RNA, QN, PCR Routine 06/14/2024 11:53 AM EST Elevated liver enzymes HIV 1 RNA, QN PCR W/RFL JAXON (RTI,PI,INTEGRASE) Routine 06/23/2022 11:17 AM EST Primary hypertension LIPID PANEL, STANDARD Routine 06/23/2022 11:17 AM EST Primary hypertension from Last 3 Months or Most Recently Relevant to Health Maintenance Results * XR Cervical Spine 5 View (01/21/2025 12:47 PM EDT) Anatomical Region Laterality Modality Spine, C-spine Radiographic Nely ging 01/21/2025 12:4 7 PM EDT Narrative 01/21/2025 1:00 PM EDT [address] [address] XRay Report Signed Patient: Liz Haddad MR #: [id number] : 1990 Acct:[id number] Age/Sex: 34 / F ADM Date: 01/21/25 Loc: HO.HHCX Attending Dr: Amparo López MD Ordering Physician: Amparo Che MD Date of Service: 01/21/25 Procedure(s): XR cervical spine 5V Accession Number(s): [id number] cc: Amparo Che MD Reason for Exam: [...] OV> 01/21/25 1257 DD/ 1247 TD/TT: 01/21/25 124 Jackscrew Worker: Procedure Note Deidre Image - 01/21/[address] [address] XRay Report Signed Patient: Liz HaddadMR #: [id number] : 1990Acct:[id number] Age/Sex: 34 / FADM Date: 01/21/25 Loc: HO.HHCX Attending Dr: Amparo López MD Ordering Physician: Amparo Che MD Date of Service: 01/21/25 Procedure(s): XR cervical spine 5V Accession Number(s): [id number] cc: Amparo Che MD Reason for Exam: [...] cervical rib, C7.. Electronically signed by: Zach Jdud MD 01/21/2025 12:57 PM EDT Dictated By: Zach Singh MD Signed By: <Electronically signed by Zach Slaughter MDin OV> 01/21/25 1257 DD/ 1247 TD/TT: 01/21/25 124 Jackscrew Worker: us Amparo López MD IMG XR PROCEDURES Richard ozzie Result - Final * XR Shoulder 2+ Views Left (01/21/2025 12:47 PM EDT) Anatomical Region Laterality Modality Upper Extremities, Shoulder Left Radi ographic Imaging 01/21/2025 12:4 7 PM EDT Narrative 01/21/2025 1:01 PM EDT [facility] [address] [place] [address] XRay Report Signed Patient: Liz Haddad MR #: [id number] : 1990 Acct:[id number] Age/Sex: 34 / F ADM Date: 01/21/25 Loc: HO.HHCX Attending Dr: Amparo López MD Ordering Physician: Amparo Che MD Date of Service: 01/21/25 Procedure(s): XR shoulder LT min 2V Accession Number(s): [id number] cc: Amparo Che MD Reason for Exam: [...] 01/21/25 1258 DD/ 1247 TD/TT: 01/21/25 1247 Jackscrew Worker: Procedure Note Donotuseinterpreter, Image - 01/21/2025 [facility] [address] [place] [address] XRay Report Signed Patient: Liz HaddadMR #: [id number] : 1990Acct:[id number] Age/Sex: 34 / FADM Date: 01/21/25 Loc: HO.HHCX Attending Dr: Amparo López MD Ordering Physician: Amparo Che MD Date of Service: 01/21/25 Procedure(s): XR shoulder LT min 2V Accession Number(s): [id number] cc: Amparo Che MD Reason for Exam: [...] Zach Judd MD 01/21/2025 12:58 PM EDT RP Dictated By: Zach Singh MD Signed By: <Electronically signed by Zach Slaughter MDin OV> 01/21/25 1258 DD/ 1247 TD/TT: 01/21/25 1247 Jackscrew Worker: Amparo López MD IMG XR PROCEDURES Richard ozzie Result - Final * Surgical Pathology (12/13/2024 3:13 PM EDT) Donna Correia MD LAB PATHOLOGY ORDERABLES Final Result * Referral to Gastroenterology (12/13/2024) Timur Kumar MD OUTPATIENT REFERRA L ORDERABLES Final Result * Hepatitis C Antibody with Reflex to HCV, RNA, Quantitative, Real-Time PCR (06/14/2024 11:53 AM EST) Hepatitis C Antibody Nonreactive Nonreactive [facility] Comment:Antibodies to HCV no t detected; does not exclude early acuteHCV infection. Blood Venous blood specimen / Unknown 06/14/2024 11:53 AM EST 06/14/2024 1:58 PM EST Rupinder Martin MD LAB BLOOD ORDERABLES Final Re sult [facility] [address] [place] [address] [phone] * HIV-1 RNA, Quantitative, Real-Time PCR with Reflex to Genotype (RTI, PI, Integrase) (06/23/2022 11:17 AM EST) HIV 1 RNA, QN PCR NOT DETECTED copies/mL [facility], HIV 1 RNA, QN PCR NOT DETECTED Log copies/mL [facility], Comment: REFERENCE RANGE: NOT DETECTED copies/mL NOT DETECTED Log copies/mL This test was performed using Real-Time Polymerase Chain Reaction. Reportable range is 20 to 10,000,000 copies/mL (1.30-7.00 Log copies/mL). 06/23/2022 11:1 7 AM EST 06/23/2022 11:17 AM EST Narrative [facility] - 06/26/2022 9:45 PM EST FASTING:NO FASTING: NO Timur Kumar MD LAB BLOOD ORDERABL ES Final Result Performing Organization Address City/[facility]/ZIP Co de Phone Number [facility] [address], [place] [address] [facility], [address] [place] [address] * (ABNORMAL) Lipid Panel, Standard (06/23/2022 11:17 AM EST) Cholesterol, Total 171 <200 mg/dL [facility] HDL Cholesterol 38(L) > OR = 50 mg/dL [facility] [place] [facility] Triglycerides 132 <150 mg/dL [facility] LDL Cholesterol 108(H) mg/dL (calc) [facility] Comment: Reference range: <100 Desirable range <100 mg/dL for primary prevention; <70 mg/dL for patients with CHD or diabetic patients with > or = 2 CHD risk factors. LDL-C is now calculated using the Clara calculation, which is a validated novel method providing better accuracy than the Friedewald equation in the estimation of LDL-C. Sim OLIVIER et al. DANIEL. 2013;310(19): 8792-9713 (http://education.Stereobot/faq/DDA862) Chol/HDLC Ratio 4.5 <5.0 (calc) [facility] Non-HDL Cholesterol 133(H) <130 mg/dL (calc) [facility] Comment: For patients with diabetes plus 1 major ASCVD risk factor, treating to a non-HDL-C goal of <100 mg/dL (LDL-C of <70 mg/dL) is considered a therapeutic option. Blood Venous blood specimen / Unknown 06/23/2022 11:17 AM EST 06/23/2022 11:17 AM EST Narrative [facility] - 06/26/2022 9:45 PM EST FASTING:NO FASTING: NO us Timur Kumar MD LAB BLOOD ORDERABL ES Final Result [address], [place] [address] [facility] [address] [facility], ([address]) [place] [address] from Last 3 Months or Most Recently Relevant to Health Maintenance Insurance #[address] [place], [place] [id number] [place] [address] C3 * Guarantor: [employer] Account Type Relation to Patient Date of Phone Billing Address Third Green Party Liability Other n/a JUAN PABLO ALEJO [id number] [facility] [address] [facility] [address] [place] [address] Care Teams Emergency Specialist Relationship Specialty Start Date End Date MagallonTimur Ward MD [address] [place] [address] PCP - General Internal Medicine 10/09/19
== END 2025-01-21 12:14 | disposition home or self-care (01) ==
LOC: HO.HHCX 12:13
PROVIDERS: Visit Provider Internal Medicine
DX: M54.2 Cervicalgia (principal); M25.512 Pain in left shoulder
CPT/HCPCS: 72050; 73030

== ENCOUNTER → 2025-01-21 12:47 | Outpatient (BNV) | payer OTHER, SELFPAY | PROVIDERS: Visit Provider Radiology Diagnostic Radiology | DX: M54.2 Cervicalgia (principal); M25.512 Pain in left shoulder | CPT/HCPCS: 72050; 73030 ==

== ENCOUNTER 2025-01-22 15:52 | Emergency (ER) | payer OTHER, SELFPAY ==
--- OUTSIDE RECORDS SUMMARY | 2025-01-21 11:20 | XMS_ITS | Encounter Summary ---
Author Organization [employer] Address [address] [facility] 7 [place] [address] Care Team Providers Care Cardiology Tech Name Role Phone Timur Ward MD Primary Care Prov ider Reason for Referral * Consultation (Urgent) - Closed Specialty Diagnoses / Procedures Referred By Contac t Referred To Contact Physical Therapy Diagnoses Acute pain of left shoulder Neck pain Amparo Che MD [address] [place] [address] Phone: tel: fax: [facility] [address] [place] [address] Phone: tel: fax: Referral ID Status Reason Start Date Expiration Date V isits Requested Visits Authorized [id number] Closed Specialty Services Required 01/21/2025 01/21/2026 20 20 Reason for Visit * Reason Comments Fall Encounter Details Date Type Department Care Team (Late st Contact Info) Description 01/21/2025 11:20 AM EDT Office Visit [facility] [address] [place] [address] [phone] Amparo Che MD [address] [place] [address] [phone] Primary hypertension (Primary Dx); Acute pain of [...] numbness and tingling while sleeping Bipolar disorder ([facility]) PTSD (post-traumatic stress disorder) Class 2 severe [...] numbness and tingling while sleeping Bipolar disorder ([facility]) PTSD (post-traumatic stress disorder) Class 2 severe obesity due to excess calories with serious comorbidity and body mass index (BMI) of38.0 to 38.9 in adult ([facility]) UTI (urinary tract infection) Left flank pain [...] Info) Description 02/12/2025 9:30 AM EDT Telemedicine [facility] [address] [place] [address] Timur Ward MD [address] [place] [address] Scheduled Orders Name Type Priority Associated Diagnoses [...] PM EDT Narrative 01/21/2025 1:01 PM EDT [address] [address] XRay Report Signed Patient: Liz Haddad MR #: [id number] : 1990 Acct:[id number] Age/Sex: 34 / F ADM Date: 01/21/25 [facility] Attending Dr: Amparo López MD Ordering Physician: Amparo Che MD Date of Service: 01/21/25 Procedure(s): XR shoulder LT min 2V Accession Number(s): [id number] cc: Amparo Che MD Reason for Exam: [...] 01/21/25 1258 DD/ 1247 TD/TT: 01/21/25 1247 Senior Sous Chef: Procedure Note Deidre, Image - 01/21/[address] [address] XRay Report Signed Patient: Liz HaddadMR #: [id number] : 1990Acct:[id number] Age/Sex: 34 / FADM Date: 01/21/25 Loc: [facility] Attending Dr: Amparo López MD Ordering Physician: Amparo Che MD Date of Service: 01/21/25 Procedure(s): XR shoulder LT min 2V Accession Number(s): [id number] cc: Amparo Che MD Reason for Exam: [...] 01/21/25 1258 DD/ 1247 TD/TT: 01/21/25 1247 Senior Sous Chef: Amparo López MD IMG XR PROCEDURES Richard ozzie Result - Final documented in this encounter Visit Diagnoses Diagnosis Primary hypertension- Primary Unspecified essential hypertension Acute pain of left shoulder Neck pain Cervicalgia documented in this encounter Additional Health Concerns Assessment Noted Time PHQ-9 Depression Total Score: 19 025 12:29 PM EDT documented as of this encounter Care Teams Cardiology Tech Relationship Specialty Start Date End Date Timur Ward MD [address] [place] [phone] PCP - General Internal Medicine 10/09/19 documented as of this encounter
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
[2025-01-22 16:11] VITALS: BP 138/74; PULSE 99; RESP 20; TEMP 36.8; O2SAT 100; BMI 41.4
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
--- OUTSIDE RECORDS SUMMARY | 2025-01-22 20:25 | XMS_ITS | Encounter Summary ---
Author Organization [employer] Address [address] [place] [address] 7 [place] [address] Care Team Providers Care Document Processing Specialist Name Role Phone Timur Ward MD Primary Care Prov ider Reason for Visit * Reason Comments Med Change Request Encounter Details Date Type Department Care Team ([facility] Contact Info) Description 06/23/2022 Refill [facility] CHC MED & PEDS [address] [place], [place] [phone] Timur Ward MD [address] [place] [address] Primary hypertension Social History Tobacco Use Types [...] Upcoming Encounters Date Type Department Care Team ([facility] Contact Info) Description 02/12/2025 9:30 AM EDT Telemedicine [facility] CHC MED & PEDS [address] [place] [address] Timur Ward MD [address] [place] [address] documented as of this encounter Visit Diagnoses Diagnosis Primary hypertension Unspecified essential hypertension documented in this encounter Care Teams Document Processing Specialist Relationship Specialty Start Date End Date Timur Ward MD [address] [place] [address] PCP - General Internal Medicine 10/09/19 documented as of this encounter
--- OUTSIDE RECORDS SUMMARY | 2025-01-22 20:25 | XMS_ITS | Clinical Summary ---
Author Organization [facility] Address [address] [place] [address] Care Team Providers Care Operater Name Role Phone Unavailable Primary Care Provider [...] (BMI) of 38.0 to 38.9 in adult ([facility]) 01/25/2023 Overview (03/15/2024): Last Assessment & Plan: Will start on phentermine, side effects discussed, Bipolar affective disorder, currently depressed, moderate ([facility]) 07/19/2022 Overview (03/15/2024): Patient presents with [...] be retiring, patient is referred to new [facility] psychiatric prescriber. Pt is aware that appointments will be via televisit and that provider willnot be an employee of [facility]. She gives permission to share PHI. Any [...] Flu, Preservative Free 01/25/2023,04/03/2018 HEP B, PED/ADOL ([id number]-[id number]-OFZD/RECOMBIVAX-PEDS) 01/08/2003,08/02/2002,07/15/1995 Hib (HbOC) 08/14/1992,1990 INFLUENZA, SEASONAL, INJECTABLE [...] 06/23/2023 06/23/2022 Alcohol and Drug Screen 05/16/2024 [id number] ( - season) 2025 Imm-Influenza (#1) 2025 [...] Pap Discontinued Vulvoscopy Discontinued Insurance [place] MEDICA[place] Member Subscriber Plan / Payer (Ef fective 2023-Present) Name:Liz Haddad Relation to Subscriber:Self Name:Liz Haddad Payer ID:[id number] Group ID:Not on file Type:Medicaid Address: [address] [employer]
--- OUTSIDE RECORDS SUMMARY | 2025-01-22 20:25 | XMS_ITS | Clinical Summary ---
Author Organization [facility] [place] [address] Phone Care Team Providers Care Bankruptcy Manager Name Role Phone Maureen Horne MD Primary Care Provider [phone] Social History Tobacco Use Types Packs/Day Years Used Date Smoking Tobacco: Never Assessed Comments Unknown Sex and Gender Information Value Date Recorded Sex Assigned at Not on file Legal Sex Female 3:51 AM EST Gender Identity Not on file Sexual Orientation Not on file Last Filed Vital Signs Vital Sign Reading Time Taken Comments Blood Pressure 117/80 01/20/2024 9:52 AM EDT Pulse 102 01/20/2024 9:52 AM EDT Temperature - - Respiratory Rate - - Oxygen Saturation - - Inhaled Oxygen Concentration - - Weight 103 kg (228 lb) 01/20/2024 9:52 AM EDT Height 157.5 cm (5' 2 ) 01/20/2024 9:52 AM EDT Body Mass Index 41.7 01/20/2024 9:52 AM EDT Plan of Treatment Health Maintenance Due Date Last Done Comments Cervical Cancer Screening: Pap Smear 2011 HIV Screening 04/18/2022 Social Influencers of Health Screening 04/18/2022 Depression Screening 05/16/2024 COVID-19 Vaccine ( season) 2025 Influenza Vaccine (#1) 2025 , 06/23/2022, 04/03/2018, Additional history exists Hypertension/CHF/CAD Annual BMP Blood Test 06/12/2025 06/12/2024 Cholesterol Screening (Lipid Panel) 06/23/2027 06/23/2022 DTaP,Tdap,and Td Vaccines (9 - Td or Tdap) 04/03/2028 04/03/2018, 07/10/2015, 02/10/2012, Additional history exists HIB Vaccines Completed 08/14/1992, 1990 IPV Vaccines Completed 07/15/1995, 05/1992, 10/14/1992, Additional history exists MMR Vaccines Completed 07/15/1995, 10/14/1992 Hepatitis B Vaccines Completed 01/08/2003, 08/02/2002, 07/15/1995 Hepatitis C Screening Completed 06/14/2024 HPV Vaccines Aged Out No longer eligi ble based on patient's age to complete this topic Hepatitis A Vaccines Aged Out No long er eligible based on patient's age to complete this topic Meningococcal ACWY Vaccine Aged Out N o longer eligible based on patient's age to complete this topic Meningococcal B Vaccine Aged Out No l onger eligible based on patient's age to complete this topic Pneumococcal Vaccine: Pediatrics (0 to 5 Years) and At-Risk Patients (6 to 49 Years) Aged Out No longer eligible based on patient's age to complete this topic RSV Immunization Patients Under 20 months Aged Out No longer eligible based on patient's age to complete this topic Varicella Vaccines Aged Out No longer eligible based on patient's age to complete this topic Care Teams Bankruptcy Manager Relationship Specialty Start Date End Date Maureen Horne MD [address] [place] [phone] PCP - General 11/16/23
--- OUTSIDE RECORDS SUMMARY | 2025-01-22 20:25 | XMS_ITS | Encounter Summary ---
Author Organization [employer] Address [address] [facility] 7 [place] [address] Care Team Providers Care Pressure Supervisor Name Role Phone Timur Ward MD Primary Care Prov ider Reason for Visit * Reason Onset Date Comments Appointment Request 05/12/2023 Encounter Details Date Type Department Care Team ([facility] Contact Info) Description 05/12/2023 Telephone [facility] CHC MED & PEDS [address] [place], [place] [phone] Timur Ward MD [address] [place] [address] Appointment Request Social History Tobacco Use Types [...] with Oscar Fraser. Please contact pt at [phone]. documented in this encounter Plan of Treatment Upcoming Encounters Date Type Department Care Team (Late st Contact Info) Description 02/12/2025 9:30 AM EDT Telemedicine [facility] CHC MED & PEDS [address] [place] [address] Timur Ward MD [address] [place] [address] documented as of this encounter Visit Diagnoses Not on filedocumented in this encounter Additional Health Concerns Assessment Noted Time PHQ-9 Depression Total Score: 13 023 9:45 AM EDT documented as of this encounter Care Teams Pressure Supervisor Relationship Specialty Start Date End Date Timur Ward MD [address] [place] [address] PCP - General Internal Medicine 10/09/19 documented as of this encounter
--- OUTSIDE RECORDS SUMMARY | 2025-01-22 20:25 | XMS_ITS | Encounter Summary ---
Author Organization [employer] Address [address] [facility] 7 [place] [address] Care Team Providers Care Manager Skilled Name Role Phone Timur Ward MD Primary Care Prov ider Reason for Visit * Reason Onset Date Comments Results 01/21/2025 Encounter Details Date Type Department Care Team ([facility] st Contact Info) Description 01/21/2025 Telephone [facility] MEDICINE [address] [place] [address] Timur Ward MD [address] [place] [address] Results Social History Tobacco Use Types Packs/Day [...] encounter Miscellaneous Notes * Telephone Encounter - Bekah Farah RN - 01/22/2025 10:23 AM EDT Walk in Nurses sending patient an message about results. * Telephone Encounter - Torito Mckay - 01/21/2025 4:46 PM EDT TC from pt requesting call back regarding Results. Type of results: xray Date when done: 01/21/25 Facility: [facility] documented in this encounter Plan of Treatment Upcoming Encounters Date Type Department Care Team (Late st Contact Info) Description 02/12/2025 9:30 AM EDT Telemedicine [facility] CHC MED & PEDS [address] [place] [address] Timur Ward MD [address] [place] [address] documented as of this encounter Visit Diagnoses Not on filedocumented in this encounter Additional Health Concerns Assessment Noted Time PHQ-9 Depression Total Score: 19 025 12:29 PM EDT documented as of this encounter Care Teams Manager Skilled Relationship Specialty Start Date End Date Timur Ward MD [address] [place] [address] PCP - General Internal Medicine 10/09/19 documented as of this encounter
--- OUTSIDE RECORDS SUMMARY | 2025-01-22 20:25 | XMS_ITS | Encounter Summary ---
Author Organization [employer] Address [address] [facility] [address] [place] [address] Care Team Providers Care Floral Associate Name Role Phone Timur Ward MD Primary Care Prov ider Encounter Details Date Type Department Care Team ([facility] st Contact Info) Description 01/11/2025 Orders Only [facility] CHC MED & PEDS [address] [place] [address] ProviderDonna MD Social History Tobacco Use Types [...] Description 02/12/2025 9:30 AM EDT Telemedicine [facility] MED & PEDS [address] [place] [address] Timur Ward MD [address] [place] [address] documented as of this encounter Procedures Procedure [...] PM EDT Narrative 01/21/2025 1:00 PM EDT [facility] [address] [place] [address] XRay Report Signed Patient: Liz Haddad MR #: [id number] : 1990 Acct:[id number] Age/Sex: 34 / F ADM Date: 01/21/25 [facility] Dr: Amparo López MD Ordering Physician: Amparo Che MD Date of Service: 01/21/25 Procedure(s): XR cervical spine 5V Accession Number(s): [id number] cc: Amparo Che MD Reason for Exam: [...] 01/21/25 1257 DD/ 1247 TD/TT: 01/21/25 1247 Windows Systems Engineer: Procedure Note Donotuseinterpreter, Image - 01/21/[address] [address] XRay Report Signed Patient: Liz HaddadMR #: [id number] : 1990Acct:[id number] Age/Sex: 34 / FADM Date: 01/21/25 Loc: [facility] Attending Dr: Amparo López MD Ordering Physician: Amparo Che MD Date of Service: 01/21/25 Procedure(s): XR cervical spine 5V Accession Number(s): [id number] cc: Amparo Che MD Reason for Exam: [...] 01/21/25 1257 DD/ 1247 TD/TT: 01/21/25 1247 Windows Systems Engineer: us Amparo López MD IMG XR PROCEDURES Richard ozzie Result - Final * Surgical Pathology (12/13/2024 3:13 PM EDT) us Historical Provider LAB PATHOLOGY ORDERABLES Final Result documented in this encounter Visit Diagnoses Not on filedocumented in this encounter Additional Health Concerns Assessment Noted Time PHQ-9 Depression Total Score: 19 025 12:29 PM EDT documented as of this encounter Care Teams Floral Associate Relationship Specialty Start Date End Date Timur Ward MD [address] [place] [address] PCP - General Internal Medicine 10/09/19 documented as of this encounter
--- OUTSIDE RECORDS SUMMARY | 2025-01-22 20:25 | XMS_ITS | Encounter Summary ---
Author Organization [email or web address] Address [address] [facility] 7 [place] [address] Care Team Providers Care Incident Manager Name Role Phone Timur Ward MD Primary Care Prov ider Reason for Visit * Reason Onset Date Comments FYI 09/26/2024 Encounter Details Date Type Department Care Team ([facility] st Contact Info) Description 09/26/2024 Telephone [facility] MEDICINE [address] [place] [address] Timur Ward MD [address] [place] [address] FYI Social History Tobacco Use Types Packs/Day [...] urine appeared. Pt is advised to[facility] at [facility] today open till 8pm for provider to [...] occurs - You become worse Liz Lamar [facility] Med & Peds Nurses (supporting Timur Kumar [...] Info) Description 02/12/2025 9:30 AM EDT Telemedicine [facility] PEDS [address] [place] [address] Timur Ward MD [address] [place] [address] documented as of this encounter Visit Diagnoses Not on filedocumented in this encounter Additional Health Concerns Assessment Noted Time PHQ-9 Depression Total Score: 19 025 12:29 PM EDT documented as of this encounter Care Teams Incident Manager Relationship Specialty Start Date End Date Timur Ward MD [address] [place] [address] PCP - General Internal Medicine 10/09/19 documented as of this encounter
--- OUTSIDE RECORDS SUMMARY | 2025-01-22 20:25 | XMS_ITS | Encounter Summary ---
Author Organization [employer] Address [address] [facility] [address] 7[address] [place] [address] Care Team Providers Care Golf Tournament Consultant Name Role Phone Timur Ward MD Primary [...] Info) Description 02/12/2025 9:30 AM EDT Telemedicine [facility] MED & PEDS [address] [place] [address] Timur Ward MD [address] [place] [address] documented as of this encounter Visit Diagnoses Not on filedocumented in this encounter Additional Health Concerns Assessment Noted Time PHQ-9 Depression Total Score: 19 025 12:29 PM EDT documented as of this encounter Care Teams Golf Tournament Consultant Relationship Specialty Start Date End Date Timur Ward MD [address] [place] [address] PCP - General Internal Medicine 10/09/19 documented as of this encounter
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
--- OUTSIDE RECORDS SUMMARY | 2025-01-22 20:25 | XMS_ITS | Encounter Summary ---
Author Organization [employer] Address [address] [facility] 7 [place] [address] Care Team Providers Care Mortician Helper Name Role Phone Timur Ward MD Primary Care Prov ider Reason for Visit * Reason Onset Date Comments Results 05/12/2023 Encounter Details Date Type Department Care Team ([facility] Contact Info) Description 05/12/2023 Telephone [facility] [address] [place], [place] [phone] Timur Ward MD [address] [place] [address] Results Social History Tobacco Use Types Packs/Day [...] results: Lab Date when done: 05/05/23 Facility: [facility] documented in this encounter Plan of Treatment Upcoming Encounters Date Type Department Care Team (Late st Contact Info) Description 02/12/2025 9:30 AM EDT Telemedicine [facility] [address] [place], [place] [phone] Timur Ward MD [address] [place], [place] [phone] documented as of this encounter Visit Diagnoses Not on filedocumented in this encounter Additional Health Concerns Assessment Noted Time PHQ-9 Depression Total Score: 13 023 9:45 AM EDT documented as of this encounter Care Teams Mortician Helper Relationship Specialty Start Date End Date Timur Ward MD [address] [place] [address] PCP - General Internal Medicine 10/09/19 documented as of this encounter
[2025-01-22 21:11] VITALS: BP 121/70; PULSE 72; RESP 16; TEMP 36.6; O2SAT 100
== END 2025-01-22 21:13 | disposition home or self-care (01) ==
PROVIDERS: Emergency Provider Emergency Medicine; PCP Internal Medicine
DX: S06.0X0A Concussion without loss of consciousness, initial encounter (principal); S13.4XXA Sprain of ligaments of cervical spine, initial encounter; R51.9 Headache, unspecified; M54.2 Cervicalgia; V23.49XA Other motorcycle driver injured in collision with car, pick-up truck or van in traffic accident, initial encounter; Y93.9 Activity, unspecified; Y92.410 Unspecified street and highway as the place of occurrence of the external cause; Y99.8 Other external cause status
CPT/HCPCS: 70450; 72125; 99283; 99284

== ENCOUNTER → 2025-01-22 16:16 | Outpatient (BNV) | payer OTHER, SELFPAY | PROVIDERS: PCP Internal Medicine; Visit Provider Radiology Vascular & Interventional Radiology | DX: Z04.3 Encounter for examination and observation following other accident (principal); R51.9 Headache, unspecified; V89.2XXA Person injured in unspecified motor-vehicle accident, traffic, initial encounter | CPT/HCPCS: 70450; 72125 ==

== ENCOUNTER 2025-04-02 14:27 | Outpatient (REF) | payer OTHER, SELFPAY ==
[2025-04-02 15:31] LABS: Bacterial Vaginosis PCR NEGATIVE (Negative); Candida Group PCR NOT DETECTED (Not Detect); Candida glab krusei PCR NOT DETECTED (Not Detect); Trichomonas vaginalis PCR NOT DETECTED (Not Detect)
[2025-04-10 01:08] LABS: C. trachomatis RNA TMA NOT DETECTED (NOT DETECTED); N. gonorrhoeae RNA TMA NOT DETECTED (NOT DETECTED)
[2025-04-10 08:38] LABS: Trichomonas (NAAT) NOT DETECTED (NOT DETECTED)
== END 2025-04-02 14:28 | disposition home or self-care (01) ==
LOC: HO.LNP 14:27
PROVIDERS: Visit Provider Family Medicine
DX: Z12.4 Encounter for screening for malignant neoplasm of cervix (principal); N76.0 Acute vaginitis; Z20.2 Contact with and (suspected) exposure to infections with a predominantly sexual mode of transmission
CPT/HCPCS: 81515; 87491; 87591; 87626; 87661; 88175